=== PATIENT | female | born 1955 | race Caucasian/White ===

== ENCOUNTER → 2018-08-14 13:45 | Emergency (ER) | payer BC ==
[2018-08-14 16:02] LABS: ABS Basophils 0.1 10^3/ul (0-0.2); ABS Eosinophils 0.3 10^3/ul (0-0.6); ABS Lymphocytes 1.5 10^3/ul (1.0-4.8); ABS Monocytes 0.8 10^3/ul (0-0.8); ABS Neutrophils 8.8 10^3/ul (1.5-7.7); ABS Nucleated RBC 0 10^3/ul; Eosinophil % 2.4 %; Hematocrit 35 % (35-47); Lymphocyte % 12.9 %; Mean Corpuscular HGB Conc 34 g/dl (31-36); Mean Corpuscular Hemoglobin 29 pg (27-31); Mean Corpuscular Volume 86 fL (80-97); Nucleated Red Blood Cells % 0; Platelet Count 516 10^3/ul (150-450); Red Blood Count 4.09 10^6/ul (4.00-5.40); Red Cell Distribution Width 14 % (10.5-15); White Blood Count 11.5 10^3/ul (3.5-10.8)
[2018-08-14 16:10] LABS: INR 1.11 (0.77-1.02)
[2018-08-14 16:29] LABS: EGFR Non-African American 111.6 (>60)
--- NOTE | 2018-08-14 16:57 | ED ---
GI/ HPI - HPI Summary HPI Summary: This patient is a 63 year old F presenting [place] [facility] accompanied by her family with a chief complaint of unusual vaginal secretions that began last night. Pt states there was a clear jelly vaginal secretion that occurred midnight last night, she describes the smell of this secretion as similar to dirty feet. The pt put a piece of paper towel in her underwear to soak up any other possible secretions, and went back to bed. Then when she woke up this morning saw what she believes was her feces on the paper towel. This concerned her and she then checked her vagina and states there was feces coming out of it. The patient rates the pain 0/10 in severity. Patient reports feeling chilled yesterday and having increased thirst. Patient denies blood in her stool and back pain. She has not had a normal BM since yesterday. She has not had abd or vaginal surgery. She has had vaginal births. A week ago she was experiencing suprapubic pain and is concerned there is a hole leading from her colon into her vagina. - History of Current Complaint Chief Complaint: EDUrogenitalProblems Time Seen by Provider: 08/14/18 16:45 Stated Complaint: URINARY Hx Obtained From: Patient Onset/Duration: Started Hours Ago, Still Present Timing: Constant Severity: Moderate Current Severity: Moderate Pain Intensity: 0 Location of Pain: None Associated Signs and Symptoms: Positive: Other: - chills - Allergy/Home Medications Allergies/Adverse Reactions: Allergies Allergy/AdvReac Type Severity Reaction Status Date / Time No Known Allergies Allergy Verified 08/14/18 13:57 PMH/Surg Hx/FS Hx/Imm Hx Infectious Disease History: No Infectious Disease History: Denies: Traveled Outside the [place] in Last 30 Days - Family History Known Family History: Negative: Respiratory Disease, Seizure Disorder - Social History Lives: With Family Alcohol Use: Rare Substance Use Type: Reports: None Hx Tobacco Use: Yes Smoking Status (MU): Current Every Day Smoker Type: Cigarettes Review of Systems Positive: Chills Gastrointestinal: Negative - blood in stool , Other - increased thirst. Genitourinary: Other - unusual vaginal secretions Musculoskeletal: Negative - back pain All Other Systems Reviewed And Are Negative: Yes Physical Exam - Summary Physical Exam Summary: Appearance: Well appearing, no pain distress Skin: warm, dry, reflects adequate perfusion Head/face: normal Eyes: EOMI, JERRICA ENT: mucous membranes moist Neck: supple, non-tender Respiratory: CTA, breath sounds present Cardiovascular: RRR, pulses symmetrical Abdomen: non-tender, soft Bowel Sounds: present Musculoskeletal: normal, strength/ROM intact Neuro: normal, sensory motor intact, A&Ox3 Pelvic: she had no external lesion. Mild to moderate brown discharge in vaginal area coming from cervix, inferiorly displaced urethra, cervix is nml Triage Information Reviewed: Yes Vital Signs On Initial Exam: Initial Vitals Temp Pulse Resp BP Pulse Ox 98.2 F 72 18 121/95 98 08/14/18 13:51 08/14/18 13:51 08/14/18 13:51 08/14/18 13:51 08/14/18 13:51 Vital Signs Reviewed: Yes Diagnostics - Vital Signs Vital Signs Temp Pulse Resp BP Pulse Ox 08/14/18 13:51 98.2 F 72 18 121/95 98 - Laboratory Lab Results: Lab Results 08/14/18 08/14/18 08/14/18 Range/Units 15:43 15:43 15:44 WBC 11.5 H (3.5-10.8) 10^3/ul RBC 4.09 (4.00-5.40) 10^6/ul Hgb 12.0 (12.0-16.0) g/dl Hct 35 (35-47) % MCV 86 (80-97) fL MCH 29 (27-31) pg MCHC 34 (31-36) g/dl RDW 14 (10.5-15) % Plt Count 516 H (150-450) 10^3/ul MPV 6.0 L (7.4-10.4) fL Neut % (Auto) 76.6 % Lymph % (Auto) 12.9 % [place] % (Auto) 7.3 % Eos % (Auto) 2.4 % Baso % (Auto) 0.8 % Absolute Neuts (auto) 8.8 H (1.5-7.7) 10^3/ul Absolute Lymphs (auto) 1.5 (1.0-4.8) 10^3/ul Absolute Monos (auto) 0.8 (0-0.8) 10^3/ul Absolute Eos (auto) 0.3 (0-0.6) 10^3/ul Absolute Basos (auto) 0.1 (0-0.2) 10^3/ul Absolute Nucleated RBC 0 10^3/ul Nucleated RBC % 0 INR (Anticoag Therapy) 1.11 H (0.77-1.02) Sodium 131 L (135-145) mmol/L Potassium 3.5 (3.5-5.0) mmol/L Chloride 98 L (101-111) mmol/L Carbon Dioxide 27 (22-32) mmol/L Anion Gap 6 (2-11) mmol/L BUN 2 L (6-24) mg/dL Creatinine 0.55 (0.51-0.95) mg/dL Est GFR ( Amer) 135.1 (>60) Est GFR (Non-Af Amer) 111.6 (>60) BUN/Creatinine Ratio 3.6 L (8-20) Glucose 87 (70-100) mg/dL Lactic Acid (0.5-2.0) mmol/L Calcium 8.9 (8.6-10.3) mg/dL Total Bilirubin 0.50 (0.2-1.0) mg/dL AST 11 L (13-39) U/L ALT 6 L (7-52) U/L Alkaline Phosphatase 60 (34-104) U/L Total Protein 6.4 (6.4-8.9) g/dL Albumin 3.5 (3.2-5.2) g/dL Globulin 2.9 (2-4) g/dL Albumin/Globulin Ratio 1.2 (1-3) 12/11/18 Range/Units 15:44 WBC (3.5-10.8) 10^3/ul RBC (4.00-5.40) 10^6/ul Hgb (12.0-16.0) g/dl Hct (35-47) % MCV (80-97) fL MCH (27-31) pg MCHC (31-36) g/dl RDW (10.5-15) % Plt Count (150-450) 10^3/ul MPV (7.4-10.4) fL Neut % (Auto) % Lymph % (Auto) % [place] % (Auto) % Eos % (Auto) % Baso % (Auto) % Absolute Neuts (auto) (1.5-7.7) 10^3/ul Absolute Lymphs (auto) (1.0-4.8) 10^3/ul Absolute Monos (auto) (0-0.8) 10^3/ul Absolute Eos (auto) (0-0.6) 10^3/ul Absolute Basos (auto) (0-0.2) 10^3/ul Absolute Nucleated RBC 10^3/ul Nucleated RBC % INR (Anticoag Therapy) (0.77-1.02) Sodium (135-145) mmol/L Potassium (3.5-5.0) mmol/L Chloride (101-111) mmol/L Carbon Dioxide (22-32) mmol/L Anion Gap (2-11) mmol/L BUN (6-24) mg/dL Creatinine (0.51-0.95) mg/dL Est GFR ( Amer) (>60) Est GFR (Non-Af Amer) (>60) BUN/Creatinine Ratio (8-20) Glucose (70-100) mg/dL Lactic Acid 0.7 (0.5-2.0) mmol/L Calcium (8.6-10.3) mg/dL Total Bilirubin (0.2-1.0) mg/dL AST (13-39) U/L ALT (7-52) U/L Alkaline Phosphatase (34-104) U/L Total Protein (6.4-8.9) g/dL Albumin (3.2-5.2) g/dL Globulin (2-4) g/dL Albumin/Globulin Ratio (1-3) Result Diagrams: 08/14/18 15:44 08/14/18 15:43 Lab Statement: Any lab studies that have been ordered have been reviewed, and results considered in the medical decision making process. Re-Evaluation - Re-Evaluation First Eval Re-Evaluation Time: 18:21 Change: Unchanged Comment: The pt is refusing CT at this time. GIGU Course/Dx - Course Course Of Treatment: Patient presents with vaginal discharge that she is concerned his stool. It is light yellow brownish discharge and there is a small amount. On exam there is no evidence for fistula and no passing of more discharged with Valsalva. Patient has no pain and only slight white count. She has not had a colonoscopy or retained care recently. She does have a primary care physician. I discussed the case with surgery who suggests outpatient referral to [facility]. Patient offered CT scan which she declined. She is encouraged to have outpatient [facility] referral, see her primary care physician promptly and have outpatient colonoscopy. She will be placed on Flagyl after [facility] cultures were obtained. Possible BV. - Diagnoses Differential Diagnoses - Female: Other - Vaginosis, UTI, fistula involving bladder or large bowel Provider Diagnoses: Vaginal discharge Discharge - Sign-Out/Discharge Documenting (check all that apply): Patient Departure - Discharge Plan Condition: Improved Disposition: HOME Prescriptions: metroNIDAZOLE [Flagyl 500 MG TAB] 500 mg PO TID #21 tab Patient Education Materials: Vaginal Discharge (ED) Referrals: Tony Harrison [Primary Care Provider] - Breezy Naqvi MD [Medical Doctor] - Additional Instructions: Call your doctor first thing in the morning for prompt recheck. He will likely need outpatient colonoscopy and will definitely need gynecology referral. Call them in the morning to be seen. Return with fever, persistent discharge, abdominal pain, worse, new symptoms or other concerns as discussed. - Billing Disposition and Condition Condition: IMPROVED Disposition: Home - Attestation Statements Document Initiated by Perla: Yes Documenting Scribe: Robert Abdi Provider For Whom Perla is Documenting (Include Credential): Emanuel Gamez MD Scribe Attestation: Robert Arenas scribed for Emanuel Gamez MD on 08/14/18 at 1959. Scribe Documentation Reviewed: Yes Provider Attestation: The documentation as recorded by the Robert benitez accurately reflects the service I personally performed and the decisions made by me, Emanuel Gamez MD Status of Scribe Document: Viewed
[2018-08-14 17:32] LABS: Urine Appearance Clear; Urine Blood 1+ (Negative); Urine Color Yellow; Urine Ketones Negative (Negative); Urine Protein Negative (Negative); Urine Red Blood Cell Trace(0-2/hpf) (Absent); Urine Specific Gravity 1.003 (1.010-1.030); Urine Urobilinogen Negative (Negative); Urine White Blood Cell Absent (Absent)
[2018-08-14 19:08] VITALS: BP 146/74
== END | disposition home or self-care (01) ==
LOC: ED 13:45
DX: N89.8 Other specified noninflammatory disorders of vagina (principal); F17.200 Nicotine dependence, unspecified, uncomplicated
CPT/HCPCS: 36415; 80053; 81003; 81015; 83605; 85025; 85610; 87070; 87077; 87480; 87510; 87660; 99282

== ENCOUNTER 2019-01-31 05:27 | Inpatient (IN) | payer BC ==
[~2019-01-31 05:27] MED LIST: Buffered Lidocaine 1% SYRIN* 1 ML/SYRINGE INTRADERM ONE; Ondansetron TAB* 4 MG ONE
--- OUTSIDE RECORDS SUMMARY | 2019-01-31 05:30 | XMS REPORT | Continuity of Care Document ---
:1955 External Reference #:[id number] Author Name Maxine Diane MD Address [address] [place] [address] Care Team Providers Name Role Phone Carmella Madrid MD Care Team Information Nurse Supervisor Unavailable Payers Date Identification Numbers Payment Provider Subscriber Policy Number: [id number] [employer] DORETHA Garcia PayID: [id number] [address] [address] [place] [address] Advance Directives Description No Information Available Problems Description No Information Family History Description No Information Available Social History Type Date Description Comments Sex Unknown Tobacco Use Start: Unknown Patient is a current smoker, smokes every day Smoking Status Reviewed: 01/01/19 Patient is a current smoker, smokes every day Allergies, Adverse Reactions, Alerts Description No Known Drug Allergies Medications Active Medications SIG Qnty Indications Ordering Provider Date Ra Aspirin Ec Adult Low Strength Unknown 81mg Tablets Lisinopril 10mg Unknown Tablets Rosuvastatin Calcium Unknown 20mg Tablets Multivitamins Unknown Immunizations Description No Information Available Vital Signs Date Vital Result Comment 01/01/2019 9:51am Height 62 inches 5'2" Weight 92.00 lb BP Systolic 141 mmHg BP Diastolic 97 mmHg Heart Rate 99 /min BMI (Body Mass Index) 16.8 kg/m2 Results Test Date Facility Test Result H/L Range Note CBC W/Auto 01/01/2019 [facility] White Blood 13.2 3/UL High 4.8-10.8 [facility] [address] Count Ser l(!) [place] [address] Auto CNT [phone] RBC Red Blood Count 4.72 X106/UL 4.20-6.20 Hemoglobin Blood 13.3 g/dL 12.0-18.0 Hematocrit 40.5 % 35-52 MCV (Corpuscular Volume) 85.7 FL 79-97 MCH (Corpuscular Hemoglobin) 28.1 pg 27-31 MCHC (Corpuscular Hemog Conc) 32.8 g/dL 32.0-36.0 RDW 14.5 % 10.5-15.0 Platelet Count Blood Auto CNT 588 X103/UL High 150-450 MPV 5.1 FL Low 7.4-10.4 Lymph% 17.0 % Low 20.0-45.0 [place]% 4.2 % 1.0-9.0 Neutrophil % 78.8 % 38.0-83.0 Absolute Lymphocytes 2.3 X103/UL 1.0-4.8 Absolute Monocytes 0.6 X103/UL 0.0-0.8 Absolute Neutrophils 10.6 X103/UL High 1.5-7.7 Laboratory test finding 01/01/2019 [facility] Carcinoembryonic Antigen Cea < pending> Procedures Description No Information Available Encounters Description No Information Available Plan of Treatment Future Appointment(s):01/03/2019 12:30 pm - Maxine Diane MD at [facility]01/01/2019 - Maxine Diane MDN82.3 Fistula of vagina to large [id number] Change in bowel [id number] Abnormal weight loss
--- OUTSIDE RECORDS SUMMARY | 2019-01-31 05:30 | XMS REPORT | Continuity of Care Document ---
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 Payers Date Identification Numbers Payment Provider Subscriber Policy Number: [id number] [employer] Zia E Radha PayID: [id number] [address] [address] [place] [address] Family History Date Family Member(s) Observation Comments Father due to Surgical complication () Mother Hypertension Social History Type Date Description Comments Sex Unknown Marital Status Occupation Retired semi [employer] Use Occasionally consumes alcohol Tobacco Use Start: Unknown Heavy tobacco smoker (more than 10 cigarettes/day) Smoking Status Reviewed: 01/23/19 Heavy tobacco smoker (more than 10 cigarettes/day) Exercise Type/Frequency Exercises regularly Allergies, Adverse Reactions, Alerts Description No Known Drug Allergies Medications Active Medications SIG Qnty Indications Ordering Provider Date Aspirin 1 by mouth every Unknown 81mg Tablets DR day Lisinopril 1 by mouth every Unknown 10mg Tablets day Multivitamin Adult 1 by mouth every Unknown Tablets day Rosuvastatin Calcium 1 by mouth every Unknown 20mg day Tablets Vital Signs Date Vital Result Comment 01/23/2019 9:50am Height 62 inches 5'2" Weight 90.00 lb Heart Rate 72 /min BP Systolic Sitting 126 mmHg BP Diastolic Sitting 78 mmHg Respiratory Rate 16 /min Body Temperature 98.6 F BMI (Body Mass Index) 16.5 kg/m2
[2019-01-31] MEDS ORDERED: fentaNYL* 50 MCG/ML 2 ML VIAL (100 MCG VIAL) IV PRN (05:52)
[2019-01-31] MEDS ORDERED: Morphine 4 MG/ML VIAL (1 ml) 4 MG/ML VIAL IV PRN (05:52)
[2019-01-31] MEDS ORDERED: Naloxone* 0.4 MG/ML 1 ML VIAL IV PRN (05:52)
[2019-01-31] MEDS ORDERED: DiMENhydriNATE IV* 50 MG/ML VIAL IV PUSH PRN (05:52)
[2019-01-31] MEDS ORDERED: PROCHLORPERAZINE INJ 5 MG/ML 2 ML VIAL IV PRN (05:52)
[2019-01-31] MEDS ORDERED: Lactated Ringers 1000 ML Bag* 1,000 ML IV SCH (06:00)
[2019-01-31] MEDS ORDERED: Dexamethasone IV* 4 MG/ML 1 ML (4 MG) IV SLOW PU ONE (06:00)
[2019-01-31] MEDS ORDERED: Famotidine IV* 10 MG/ML 2 ML (20 mg) IV ONE (06:00)
[2019-01-31] MEDS ORDERED: Dexamethasone IV* 4 MG/ML 1 ML (4 MG) ONE (06:24)
[2019-01-31] MEDS ORDERED: ceFOXitin 2 GM IVPREMIX* 2 GM/50 ML BAG ONE (06:24)
[2019-01-31] MEDS ORDERED: Buffered Lidocaine 1% SYRIN* 1 ML/SYRINGE INTRADERM ONE (06:24)
[2019-01-31] MEDS ORDERED: Ondansetron INJ* 2 MG/ML VIAL ONE (06:24)
[2019-01-31] MEDS ORDERED: Famotidine IV* 10 MG/ML 2 ML (20 mg) ONE (06:24)
[2019-01-31] MEDS ORDERED: Bupivacaine 0.5%* 50 ML VIAL ONE (07:18)
[2019-01-31] MEDS ORDERED: fentaNYL* 50 MCG/ML 5 ML VIAL (250 MCG VIAL) ONE (07:26)
[2019-01-31] MEDS ORDERED: Midazolam* 1 MG/ML 5 ML VIAL (5 MG) ONE (07:26)
[2019-01-31] MEDS ORDERED: KETAMINE HCL* 50 MG/ML 10 ML VIAL ONE (07:26)
[2019-01-31] MEDS ORDERED: Atracurium* 10 MG/ML 10 ML VIAL ONE (07:27)
[2019-01-31] MEDS ORDERED: Neostigmine Methylsulfate* 1 MG/ML 10 ML VIAL (1 mg/ml) ONE (08:38)
[2019-01-31] MEDS ORDERED: EPHEDrine (Pressors)* 50 MG/ML VIAL ONE (08:38)
[2019-01-31] MEDS ORDERED: Ketorolac INJ* 30 MG/ML 1 ML VIAL ONE (08:38)
[2019-01-31] MEDS ORDERED: Phenylephrine 10 MG/ML VIAL* 1 ML VIAL ONE (08:38)
[2019-01-31] MEDS ORDERED: Acetaminophen IV 1GM/100ML * 100 ML ONE (08:38)
[2019-01-31] MEDS ORDERED: PROCHLORPERAZINE INJ 5 MG/ML 2 ML VIAL ONE (08:38)
[2019-01-31] MEDS ORDERED: Glycopyrrolate IV* 0.2 MG/ML 1 ML VIAL ONE (08:38)
[2019-01-31] MEDS ORDERED: Lidocaine 2% PF * 5 ML VIAL ONE (08:38)
[2019-01-31] MEDS ORDERED: Morphine 10 MG/ML VIAL (1 ml) ONE (09:21)
--- NOTE | 2019-01-31 09:43 | OP ---
Operative Report - Blank - Operative Report Date of Operation: 01/31/19 Note: Brief Operative Note Preop Dx: colon cancer; colovaginal fistula Postop Dx: same Procedure: laparoscopic, hand-assisted sigmoid colectomy Anesthesia: GET Surgeon: Mindy Belt Press Operator: WAQAS Irving Fluids: 2100 ml RL EBL: < 50 ml Specimen: sigmoid colon Drains: none Findings: dictated
[2019-01-31] MEDS ORDERED: Lactated Ringers 1000 ML Bag* 1,000 ML IV ONE (09:48)
[2019-01-31] MEDS ORDERED: HYDROmorphone INJ1* 1 MG/ML SYRINGE IV SLOW PU PRN ×2 (09:59)
--- NOTE | 2019-01-31 12:28 | OP ---
CC: Venkat Guillen MD; Dr. Mendosa* OPERATIVE REPORT: DATE OF OPERATION: 01/31/19 - Inpatient, room SSU 334-01 DATE OF : 55 ATTENDING SURGEON: Venkat Guillen MD APPAREL MANAGER: WAQAS Jefferson ANESTHESIOLOGIST: Jacky Vaughan MD ANESTHESIA: General. PRE-OP DIAGNOSIS: Sigmoid colon cancer with colovaginal fistula. POST-OP DIAGNOSIS: Sigmoid colon cancer with colovaginal fistula. OPERATIVE PROCEDURE: Laparoscopic hand-assisted sigmoid colectomy with take down of colovesical fistula. INDICATIONS FOR PROCEDURE: A 63-year-old female with stage IV colon cancer. Risks included but not limited to bleeding; infection; anastomotic leak; injury to intraabdominal contents including the bowel, ureter, and the bladder; persistent fistulous drainage; ND; pneumonia; PE; arrhythmia and even were explained to the patient, who seemed to understand and agreed to the procedure and all questions were answered. DESCRIPTION OF PROCEDURE: The patient was taken to the operating room and placed supine. Preoperative antibiotics were given. After the successful induction of general endotracheal anesthesia, a Pope catheter was placed. The legs were placed in a split table in a split position. The abdomen was prepped and draped in a sterile fashion. Time-out was performed indicating correct procedure, correct patient. Midline incision was made 6.5 cm in length and carried down to the subcutaneous tissue. The fascia was opened and the peritoneal cavity was entered. A hand port was then placed through this incision. My left hand was placed into the incision. The bowel was protected as a suprapubic 12 mm and a right lower quadrant 12 mm trocar were placed. Pneumoperitoneum was achieved at 15 mmHg. The camera was placed in and the abdomen was scanned. The patient was placed in a Trendelenburg position, tilted slightly towards her right. The sigmoid mass was easily identified and was adherent along the left hemipelvis towards the top of the vagina. Proximal point well away from the tumor was chosen and they were down to the sigmoid. This was divided using a stapler with a gold load, 60 mm. Mesentery was then taken down towards the rectum partially. The rectosigmoid junction was divided using a similar staple size. The mesentery was then completely taken using the LigaSure and stapling the vasculature with a sliver load on the stapler. EBL minimal. Hemostasis was intact. The tumor of colon easily from the small point down in the pelvis with some gentle retraction and finger fracture and there was minimal to no bleeding. The specimen was removed. Pelvis was irrigated, aspirated dry, and inspected. No injuries were noted. Ureter was left untouched. The proximal bowel was brought out through the incision site and a 25-mm EEA anvil was placed into this segment of colon and a new staple line was made and the anvil was brought out through the staple line. Then, from below in the lower anterior fashion, a 25 mm EEA stapled anastomosis was performed on top of the rectum just distal to the initial staple line. An air leak test was performed by filling the pelvis with saline, clamping the proximal bowel with my fingers, insufflating air with a rigid sigmoidoscope and there were no air bubbles or air leak. Air was released from the rectum. The pelvis was aspirated and free of saline. There was a short omentum, it was taken off the proximal transverse colon creating a long tongue of omentum coming from the distal transverse colon and was placed down in the pelvis over the anastomosis and covering the fistula site. The abdomen was once again scanned, no obvious injuries were noted. She was placed flat in the supine position. The fascia was closed with a running #1 PDS suture. Marcaine was applied to the fascia. Skin was closed with Monocryl and glue. Trocars had been removed. She tolerated the procedure well. She was extubated and taken to the recovery in stable condition. [id number]/[facility] #: [id number] MTDCelestino
[2019-01-31] MEDS: Heparin VIAL(*) 5000 UNITS/ML VIAL (FIVE THOUSAND) SUBCUT SCH ×2 (14:08→22:23)
[2019-01-31] MEDS: Acetaminophen TAB* 325 MG PO PRN (22:23)
[2019-01-31] MEDS: Lactated Ringers 1000 ML Bag* 1,000 ML IV SCH (22:34)
[2019-02-01] MEDS: HYDROcodone/ACETAMIN 5-325 MG* 1 TAB PO PRN (03:54)
[2019-02-01] MEDS: Heparin VIAL(*) 5000 UNITS/ML VIAL (FIVE THOUSAND) SUBCUT SCH ×3 (06:13→22:19)
[2019-02-01] MEDS: Acetaminophen TAB* 325 MG PO PRN ×4 (06:20→20:00)
--- NOTE | 2019-02-01 09:11 | PN ---
Progress Note - Progress Note Date of Service: 02/01/19 SOAP: Subjective: Doing very well Pain is adequately controlled Voiding well, ambulating to bathroom Objective: Temp Pulse Resp BP Pulse Ox 98.8 F 75 16 142/58 96 02/01/19 07:42 02/01/19 07:42 02/01/19 07:42 02/01/19 07:42 02/01/19 07:42 Intake & Output 01/30/19 01/31/19 02/01/19 02/02/19 06:59 06:59 06:59 06:59 Intake Total 4125 Output Total 1989 300 Balance 2135 -300 Weight 83 lb Intake: IV Fluids 3075 LR 3075 Oral 1050 Output: Urine 1989 300 Other: # Voids 2 PEX: Comfortable-awake and alert Lungs are clear Abd is soft and slightly distended. Bowel sounds present but very hypoactive. Incisions CDI Ext without edema Assessment: POD# 1 s/p lap assisted sigmoid colectomy--doing well Plan: Clear liquids Increase activity Pulmonary toilet Subq heparin Analgesia Care discussed with patient and
[2019-02-01 21:33] LABS: BUN/Creatinine Ratio 9.6 (8-20); Calcium 8.8 mg/dL (8.6-10.3); EGFR African American 144.1 (>60); EGFR Non-African American 119.1 (>60); Magnesium 1.8 mg/dL (1.9-2.7); Potassium 3.4 mmol/L (3.5-5.0)
[2019-02-01] MEDS: Lactated Ringers 1000 ML Bag* 1,000 ML IV SCH (22:22)
[2019-02-02] MEDS: HYDROcodone/ACETAMIN 5-325 MG* 1 TAB PO PRN ×4 (00:01→13:33)
[2019-02-02] MEDS: Ondansetron INJ* 2 MG/ML VIAL IV PRN ×2 (00:02→15:34)
[2019-02-02] MEDS: Heparin VIAL(*) 5000 UNITS/ML VIAL (FIVE THOUSAND) SUBCUT SCH ×3 (05:38→22:22)
[2019-02-02] MEDS ORDERED: Magnesium Sulfate 1 GM IV* 1 GM/100 ML BAG IV ONE (07:21)
--- NOTE | 2019-02-02 08:47 | PN ---
Progress Note - Progress Note Date of Service: 02/02/19 SOAP: Subjective: Pt seen and examined. Chart reviewed. abdo pain relieved with narcotics. no nausea, no flatus. bloated. ambulatory. overall feels well. some bloody vaginal discharge on night, but none since overnight nurse noted irregular heart beat on exam and ekg done, along with labs Objective: [ Temp Pulse Resp BP Pulse Ox 97.8 F 87 17 155/68 96 02/02/19 07:47 02/02/19 07:47 02/02/19 07:47 02/02/19 07:47 02/02/19 07:47 Intake & Output 02/01/19 02/02/19 02/02/19 22:59 06:59 14:59 Intake Total 300 150 Output Total 2230 1750 Balance -1930 -1600 a and o x3, nad lungs clear s1s2, no murmurs abdo: soft/ bloated/ NT dressing removed, no redness ext wnl labs noted Assessment: POD 2 sigmoid colectomy takedown of colovag fistula, ileus Plan: cont clears replete lytes OOB, incentive spirometer dvt proph
[2019-02-02] MEDS: D5W 1/2 NS KCl 20 Meq 1000 ML* 1,000 ML IV SCH (09:21)
[2019-02-02] MEDS: KCL 20 MEQ/100 ML IVPREMIX* 20 MEQ/100 ML BAG IV SCH ×2 (11:02→14:40)
[2019-02-02] MEDS: Lisinopril TAB* 10 MG PO SCH (17:59)
[2019-02-03] MEDS: Ondansetron INJ* 2 MG/ML VIAL IV PRN ×3 (04:16→20:42)
[2019-02-03] MEDS: Heparin VIAL(*) 5000 UNITS/ML VIAL (FIVE THOUSAND) SUBCUT SCH ×3 (05:59→21:54)
[2019-02-03 06:23] LABS: BUN/Creatinine Ratio 7.5 (8-20); Calcium 9.1 mg/dL (8.6-10.3); EGFR Non-African American 116.5 (>60); Magnesium 1.7 mg/dL (1.9-2.7); Phosphorus 2.8 mg/dL (2.5-5.0); Potassium 3.5 mmol/L (3.5-5.0)
[2019-02-03] MEDS: D5W 1/2 NS KCl 20 Meq 1000 ML* 1,000 ML IV SCH ×2 (06:49→18:30)
[2019-02-03] MEDS: HYDROcodone/ACETAMIN 5-325 MG* 1 TAB PO PRN ×2 (09:01→14:12)
[2019-02-03] MEDS ORDERED: Magnesium Sulfate 2 GM IV* 2 GM/50 ML BAG IVPB ONE (09:49)
[2019-02-03 10:32] LABS: ABS Basophils 0.1 10^3/ul (0-0.2); ABS Lymphocytes 0.5 10^3/ul (1.0-4.8); ABS Monocytes 1.3 10^3/ul (0-0.8); ABS Neutrophils 14.2 10^3/ul (1.5-7.7); Hematocrit 35 % (35-47); Hemoglobin 11.8 g/dL (12.0-16.0); Lymphocyte % 3.2 %; Mean Corpuscular HGB Conc 34 g/dL (31-36); Mean Corpuscular Hemoglobin 29 pg (27-31); Mean Corpuscular Volume 85 fL (80-97); Mean Platelet Volume 6.4 fL (7.4-10.4); Platelet Count 350 10^3/uL (150-450); Red Blood Count 4.15 10^6 /uL (3.70-4.87); Red Cell Distribution Width 15 % (10.5-15); White Blood Count 16.1 10^3/uL (3.5-10.8)
--- NOTE | 2019-02-03 12:05 | PN ---
Progress Note - Progress Note Date of Service: 02/03/19 Note: Surgery Progress Note S: Patient had emesis 4 times yesterday. She feels somewhat nauseous. Pain is well controlled but difficult to keep down PO meds. She has ambulated numerous times yesterday. She feels that her UOP has declined and has become darker. She otherwise appears comfortable. O: Vital Signs - 24 hr 02/02/19 02/02/19 02/02/19 13:33 15:21 16:00 Temperature 98 F Pulse Rate 96 Respiratory 18 16 Rate Blood Pressure 135/75 (mmHg) O2 Sat by Pulse 97 97 Oximetry 02/02/19 02/02/19 02/02/19 16:09 19:30 19:40 Temperature 98.6 F Pulse Rate 93 Respiratory 18 18 18 Rate Blood Pressure 142/71 (mmHg) O2 Sat by Pulse 96 Oximetry 02/02/19 02/03/19 02/03/19 23:58 00:00 04:03 Temperature 98.1 F 98.2 F Pulse Rate 102 120 Respiratory 22 20 Rate Blood Pressure 154/85 155/77 (mmHg) O2 Sat by Pulse 98 98 95 Oximetry 02/03/19 02/03/19 02/03/19 04:20 07:36 09:01 Temperature 99.6 F Pulse Rate 100 106 Respiratory 16 18 Rate Blood Pressure 139/70 (mmHg) O2 Sat by Pulse 92 Oximetry Laboratory Results - last 24 hr 02/03/19 02/03/19 05:39 10:22 WBC 16.1 H RBC 4.15 Hgb 11.8 L Hct 35 MCV 85 MCH 29 MCHC 34 RDW 15 Plt Count 350 MPV 6.4 L Neut % (Auto) 88.6 Lymph % (Auto) 3.2 [place] % (Auto) 7.9 Eos % (Auto) 0.0 Baso % (Auto) 0.3 Absolute Neuts (auto) 14.2 H Absolute Lymphs (auto) 0.5 L Absolute Monos (auto) 1.3 H Absolute Eos (auto) 0.0 Absolute Basos (auto) 0.1 Absolute Nucleated RBC 0.0 Nucleated RBC % 0.0 Sodium 130 L Potassium 3.5 Chloride 93 L Carbon Dioxide 28 Anion Gap 9 BUN 4 L Creatinine 0.53 Est GFR ( Amer) 141.0 Est GFR (Non-Af Amer) 116.5 BUN/Creatinine Ratio 7.5 L Glucose 128 H Calcium 9.1 Phosphorus 2.8 Magnesium 1.7 L Intake & Output 02/02/19 02/03/19 02/03/19 22:59 06:59 14:59 Intake Total 500 1185 480 Output Total 0 525 100 Balance 500 660 380 Intake: IV Fluids 885 D5W 1/2 NS 20 meq KCL 885 Oral 500 300 480 Output: Urine 0 425 100 Emesis 100 Other: # Bowel Movements 0 Physical exam: CV: increased rate, regular rhythm Resp: CTAB Abd- distended, +tympany, minimally tender at incisions, c/d/i A/P: 63 F with metastatic colon cancer, POD 3 from lap assisted sigmoid colectomy and fistula takedown with Dr. Guillen - Patient with ileus, DC CLD and told patient to take sips of clears only - Tachycardia to low 100s- Hct 35 today, will trend tomorrow. Unlikely from infectious etiology, given patient is afebrile and WBC 16 but will trend. Likely from hypovolemia from large auto diuresis two days ago (POD 2, 5700 cc UOP), continued emesis and lack of PO intake. Will increase IVF. - Replete magnesium - Patient encouraged to continue ambulation - Pain- IV dilaudid PRN, PO pain meds likely will not be tolerated - PPX- HSQ
[2019-02-03] MEDS: Lisinopril TAB* 10 MG PO SCH (18:02)
[2019-02-03] MEDS: Ketorolac INJ* 15 MG/ML 1 ML VIAL IV PUSH PRN (18:30)
[2019-02-04] MEDS: D5W 1/2 NS KCl 20 Meq 1000 ML* 1,000 ML IV SCH ×2 (03:44→11:00)
[2019-02-04 05:02] LABS: ABS Lymphocytes 0.2 10^3/ul (1.0-4.8); ABS Monocytes 0.6 10^3/ul (0-0.8); ABS Neutrophils 9.8 10^3/ul (1.5-7.7); Eosinophil % 0.3 %; Hematocrit 37 % (35-47); Hemoglobin 12.6 g/dL (12.0-16.0); Lymphocyte % 2.2 %; Mean Corpuscular HGB Conc 34 g/dL (31-36); Mean Corpuscular Hemoglobin 29 pg (27-31); Mean Corpuscular Volume 85 fL (80-97); Mean Platelet Volume 6.7 fL (7.4-10.4); Nucleated Red Blood Cells % 0.1; Platelet Count 356 10^3/uL (150-450); Red Blood Count 4.39 10^6 /uL (3.70-4.87); Red Cell Distribution Width 15 % (10.5-15); White Blood Count 10.7 10^3/uL (3.5-10.8)
[2019-02-04 05:26] LABS: BUN/Creatinine Ratio 16.3 (8-20); Calcium 8.8 mg/dL (8.6-10.3); EGFR African American 154.3 (>60); EGFR Non-African American 127.6 (>60); Potassium 3.4 mmol/L (3.5-5.0)
[2019-02-04] MEDS: Heparin VIAL(*) 5000 UNITS/ML VIAL (FIVE THOUSAND) SUBCUT SCH ×3 (05:55→22:29)
[2019-02-04] MEDS ORDERED: NS 0.9% 1000 ML** 1,000 ML IV ONE (09:05)
--- NOTE | 2019-02-04 09:15 | PN ---
Progress Note - Progress Note Date of Service: 02/04/19 SOAP: Subjective:feels bloated and rates abd pain at 3;no dysuria but notes urine is dark orange;no dyspnea [] Objective: Laboratory Results - last 24 hr 02/03/19 02/04/19 02/04/19 10:22 04:47 04:47 WBC 16.1 H 10.7 RBC 4.15 4.39 Hgb 11.8 L 12.6 Hct 35 37 MCV 85 85 MCH 29 29 MCHC 34 34 RDW 15 15 Plt Count 350 356 MPV 6.4 L 6.7 L Neut % (Auto) 88.6 91.4 Lymph % (Auto) 3.2 2.2 [place] % (Auto) 7.9 5.9 Eos % (Auto) 0.0 0.3 Baso % (Auto) 0.3 0.2 Absolute Neuts (auto) 14.2 H 9.8 H Absolute Lymphs (auto) 0.5 L 0.2 L Absolute Monos (auto) 1.3 H 0.6 Absolute Eos (auto) 0.0 0.0 Absolute Basos (auto) 0.1 0.0 Absolute Nucleated RBC 0.0 0.0 Nucleated RBC % 0.0 0.1 Sodium 128 L Potassium 3.4 L Chloride 94 L Carbon Dioxide 27 Anion Gap 7 BUN 8 Creatinine 0.49 L Est GFR ( Amer) 154.3 Est GFR (Non-Af Amer) 127.6 BUN/Creatinine Ratio 16.3 Glucose 137 H Calcium 8.8 Vital Signs Temp 101 F 02/04/19 07:25 Pulse 116 02/04/19 07:25 Resp 15 02/04/19 07:25 BP 140/72 02/04/19 07:25 Pulse Ox 92 02/04/19 07:25 Intake & Output 02/03/19 02/04/19 02/04/19 18:59 06:59 18:59 Intake Total 655 915 Output Total 870 2500 Balance -215 -1585 Intake: IV Fluids 915 D5W 1/2 NS 20 meq KCL 915 IVPB 55 Mg+ 55 Oral 600 0 Output: NG Tube Drainage Amount 1950 Urine 770 100 Emesis 100 450 lungs:clear anterior;heart:RRR,tachy;abd:quiet,distended and firm,incisions C/D/ I with glue,no erythema or drainage;ext:nontender calves [] Assessment:POD#3 s/p lap sigmoid colectomy;febrile,tachycardic,low urine output; hyponatremia [] Plan:1 liter bolus NS 0.9% now;update Dr Guillen;plan discussed with patient and her []
[2019-02-04] MEDS ORDERED: Acetaminophen IV 1GM/100ML * 1,000 MG/100 ML VIAL IVPB ONE (09:27)
[2019-02-04] MEDS: Ketorolac INJ* 15 MG/ML 1 ML VIAL IV PUSH PRN ×3 (09:29→22:32)
[2019-02-04] MEDS ORDERED: D5NS 0.9% 1000 ML BAG* 1,000 ML IV SCH (12:00)
--- NOTE | 2019-02-04 12:05 | PN ---
Progress Note - Progress Note Date of Service: 02/04/19 SOAP: Subjective: []pod #4 no flatus, no vaginal drainage, abdominal discomfort 3, improved with NG, no chills Objective: [] Intake & Output 02/02/19 02/03/19 02/04/19 02/05/19 06:59 06:59 06:59 06:59 Intake Total 1456 3814 1570 1672 Output Total 5680 1405 3370 800 Balance -4224 2409 -1800 872 Intake: IV Fluids 776 2054 915 1572 D5W 1/2 NS 20 meq KCL 885 915 572 K+ 100 LR 776 859 Mg+ 110 NS (0.9%) 100 1000 IVPB 55 100 Acetaminophen 100 Mg+ 55 Oral 680 1760 600 0 Output: NG Tube Drainage Amount 1950 600 Urine 5680 1305 870 200 Emesis 100 550 Other: # Bowel Movements 0 0 Temp Pulse Resp BP Pulse Ox 101 F 116 15 140/72 92 02/04/19 07:25 02/04/19 07:25 02/04/19 07:25 02/04/19 07:25 02/04/19 08:00 Laboratory Last Values WBC 10.7 10^3/uL (3.5-10.8) 02/04/19 04:47 RBC 4.39 10^6 /uL (3.70-4.87) 02/04/19 04:47 Hgb 12.6 g/dL (12.0-16.0) 02/04/19 04:47 Hct 37 % (35-47) 02/04/19 04:47 MCV 85 fL (80-97) 02/04/19 04:47 MCH 29 pg (27-31) 02/04/19 04:47 MCHC 34 g/dL (31-36) 02/04/19 04:47 RDW 15 % (10.5-15) 02/04/19 04:47 Plt Count 356 10^3/uL (150-450) 02/04/19 04:47 MPV 6.7 fL (7.4-10.4) L 02/04/19 04:47 Neut % (Auto) 91.4 % 02/04/19 04:47 Lymph % (Auto) 2.2 % 02/04/19 04:47 [place] % (Auto) 5.9 % 02/04/19 04:47 Eos % (Auto) 0.3 % 02/04/19 04:47 Baso % (Auto) 0.2 % 02/04/19 04:47 Absolute Neuts (auto) 9.8 10^3/ul (1.5-7.7) H 02/04/19 04:47 Absolute Lymphs (auto) 0.2 10^3/ul (1.0-4.8) L 02/04/19 04:47 Absolute Monos (auto) 0.6 10^3/ul (0-0.8) 02/04/19 04:47 Absolute Eos (auto) 0.0 10^3/ul (0-0.6) 02/04/19 04:47 Absolute Basos (auto) 0.0 10^3/ul (0-0.2) 02/04/19 04:47 Absolute Nucleated RBC 0.0 10^3/ul 02/04/19 04:47 Nucleated RBC % 0.1 02/04/19 04:47 Sodium 128 mmol/L (135-145) L 02/04/19 04:47 Potassium 3.4 mmol/L (3.5-5.0) L 02/04/19 04:47 Chloride 94 mmol/L (101-111) L 02/04/19 04:47 Carbon Dioxide 27 mmol/L (22-32) 02/04/19 04:47 Anion Gap 7 mmol/L (2-11) 02/04/19 04:47 BUN 8 mg/dL (6-24) 02/04/19 04:47 Creatinine 0.49 mg/dL (0.51-0.95) L 02/04/19 04:47 Est GFR ( Amer) 154.3 (>60) 02/04/19 04:47 Est GFR (Non-Af Amer) 127.6 (>60) 02/04/19 04:47 BUN/Creatinine Ratio 16.3 (8-20) 02/04/19 04:47 Glucose 137 mg/dL (70-100) H 02/04/19 04:47 Calcium 8.8 mg/dL (8.6-10.3) 02/04/19 04:47 Phosphorus 2.8 mg/dL (2.5-5.0) 02/03/19 05:39 Magnesium 1.7 mg/dL (1.9-2.7) L 02/03/19 05:39 abdomen is soft moderate distension, incision CDI Assessment: []pod# 4, ileus, nausea improved with ng, fever, tachycardia this am, recheck vitals await cxr, ua results, anastomotic leak in differential but abdomen is benign hyponatremia- change to normal saline fluid bolus for low uo Plan: []ivf change as above, await cxr/ua
[2019-02-04] MEDS ORDERED: Acetaminophen SUPP* 650 MG SUPP PR PRN (12:21)
[2019-02-04] MEDS: D5W NS 0.9% 20Meq KCL 1000 ML* 1,000 ML IV SCH (13:13)
[2019-02-04 13:38] LABS: Urine Appearance Cloudy; Urine Bacteria Absent (Absent); Urine Bilirubin Negative (Negative); Urine Blood Negative (Negative); Urine Color Amber; Urine Glucose Negative (Negative); Urine Ketones Negative (Negative); Urine Nitrite Negative (Negative); Urine Protein 1+(30 mg/dL) (Negative); Urine Red Blood Cell 1+(3-5/hpf) (Absent); Urine Specific Gravity 1.024 (1.010-1.030); Urine Squamous Epithelial Cell Present (Absent); Urine Urobilinogen Negative (Negative); Urine White Blood Cell Trace(0-5/hpf) (Absent)
[2019-02-04] MEDS: Lisinopril TAB* 10 MG PO SCH (18:01)
[2019-02-05] MEDS: D5W NS 0.9% 20Meq KCL 1000 ML* 1,000 ML IV SCH ×3 (01:17→21:05)
[2019-02-05] MEDS: Heparin VIAL(*) 5000 UNITS/ML VIAL (FIVE THOUSAND) SUBCUT SCH ×3 (05:25→21:17)
[2019-02-05] MEDS: Ketorolac INJ* 15 MG/ML 1 ML VIAL IV PUSH PRN ×3 (05:30→18:45)
[2019-02-05 05:54] LABS: ABS Lymphocytes 0.4 10^3/ul (1.0-4.8); ABS Monocytes 1.3 10^3/ul (0-0.8); ABS Neutrophils 9.2 10^3/ul (1.5-7.7); Eosinophil % 0.3 %; Hematocrit 33 % (35-47); Hemoglobin 11.2 g/dL (12.0-16.0); Lymphocyte % 3.8 %; Mean Corpuscular HGB Conc 34 g/dL (31-36); Mean Corpuscular Hemoglobin 29 pg (27-31); Mean Corpuscular Volume 85 fL (80-97); Mean Platelet Volume 6.9 fL (7.4-10.4); Nucleated Red Blood Cells % 0.2; Platelet Count 326 10^3/uL (150-450); Red Blood Count 3.91 10^6 /uL (3.70-4.87); Red Cell Distribution Width 15 % (10.5-15)
[2019-02-05 06:14] LABS: BUN/Creatinine Ratio 25.5 (8-20); Calcium 8.5 mg/dL (8.6-10.3); EGFR African American 147.4 (>60); EGFR Non-African American 121.8 (>60)
[2019-02-05 06:17] LABS: Potassium 2.5 mmol/L (3.5-5.0)
[2019-02-05] MEDS ORDERED: KCL 10 MEQ/50 ML IVPREMIX* 10 MEQ/50 ML BAG IV SCH (07:00)
[2019-02-05] MEDS: KCL 10 MEQ/50 ML IVPREMIX* 10 MEQ/50 ML BAG IV SCH ×6 (08:18→18:43)
--- NOTE | 2019-02-05 09:34 | PN ---
Progress Note - Progress Note Date of Service: 02/05/19 Note: S: Seen w/ Dr. Guillen. POD #5. Feels better. Wants to eat/drink. Passing flatus and had (accidental) loose stool this am. Denies pain, N/V. Urine still very concentrated. Ambulating well; using IS. O: Vital Signs - 8 hr 02/05/19 02/05/19 02/05/19 02:22 03:44 07:43 Temperature 97.9 F 97.7 F Pulse Rate 111 95 Respiratory 16 16 Rate Blood Pressure 124/42 114/59 (mmHg) O2 Sat by Pulse 93 93 96 Oximetry 02/05/19 08:15 Temperature Pulse Rate Respiratory 16 Rate Blood Pressure (mmHg) O2 Sat by Pulse 96 Oximetry Intake and Output Last 24 Hours 02/03/19 02/04/19 02/05/19 02/06/19 06:59 06:59 06:59 06:59 Intake Total 3814 1570 4221 Output Total 1405 3370 4400 Balance 2409 -1800 -179 Intake: IV Fluids 2054 915 2721 D5W 1/2 NS 20 meq KCL 885 915 731 D5W NS 20 meq KCL 990 K+ 100 LR 859 Mg+ 110 NS (0.9%) 100 1000 IVPB 55 100 Acetaminophen 100 Mg+ 55 Oral 8063 569 8196 Output: NG Tube Drainage Amount 1950 3350 Urine 4590 759 8747 Emesis 100 550 Other: Date of Last Bowel t Movement # Bowel Movements 0 1 Estimated Stool Amount Medium Gen: sitting up in bed; appears comfortable Heart: reg Lungs: clear (cXray 02/04: COPD; no acute changes) Abd: min distended; BS hypoactive; soft, nontender to palp; incisions ok Extr: no edema Labs: Laboratory Tests 02/05/19 02/05/19 05:06 05:06 WBC 11.0 H Hgb 11.2 L Sodium 139 D Potassium 2.5 L* Chloride 100 L BUN 13 Creatinine 0.51 A: s/p lap assisted sigmoid colectomy w/ ileus, persistent, though clinically improving hypokalemia (already addressed for repletion by Dr. Toro) P: cont NG, IVF; K+ repletion; will recheck Mg+ as well
[2019-02-05 13:04] LABS: BUN/Creatinine Ratio 27.8 (8-20); Calcium 8.3 mg/dL (8.6-10.3); Magnesium 1.9 mg/dL (1.9-2.7); Potassium 3.2 mmol/L (3.5-5.0)
--- NOTE | 2019-02-05 14:08 | PN ---
Progress Note - Progress Note Date of Service: 02/05/19 SOAP: Subjective: []passing flatus/bm, no abdominal pain pathology reviewed Objective: [] Laboratory Last Values WBC 11.0 10^3/uL (3.5-10.8) H 02/05/19 05:06 RBC 3.91 10^6 /uL (3.70-4.87) 02/05/19 05:06 Hgb 11.2 g/dL (12.0-16.0) L 02/05/19 05:06 Hct 33 % (35-47) L 02/05/19 05:06 MCV 85 fL (80-97) 02/05/19 05:06 MCH 29 pg (27-31) 02/05/19 05:06 MCHC 34 g/dL (31-36) 02/05/19 05:06 RDW 15 % (10.5-15) 02/05/19 05:06 Plt Count 326 10^3/uL (150-450) 02/05/19 05:06 MPV 6.9 fL (7.4-10.4) L 02/05/19 05:06 Neut % (Auto) 83.4 % 02/05/19 05:06 Lymph % (Auto) 3.8 % 02/05/19 05:06 [place] % (Auto) 12.3 % 02/05/19 05:06 Eos % (Auto) 0.3 % 02/05/19 05:06 Baso % (Auto) 0.2 % 02/05/19 05:06 Absolute Neuts (auto) 9.2 10^3/ul (1.5-7.7) H 02/05/19 05:06 Absolute Lymphs (auto) 0.4 10^3/ul (1.0-4.8) L 02/05/19 05:06 Absolute Monos (auto) 1.3 10^3/ul (0-0.8) H 02/05/19 05:06 Absolute Eos (auto) 0.0 10^3/ul (0-0.6) 02/05/19 05:06 Absolute Basos (auto) 0.0 10^3/ul (0-0.2) 02/05/19 05:06 Absolute Nucleated RBC 0.0 10^3/ul 02/05/19 05:06 Nucleated RBC % 0.2 02/05/19 05:06 Sodium 140 mmol/L (135-145) 02/05/19 12:35 Potassium 3.2 mmol/L (3.5-5.0) L 02/05/19 12:35 Chloride 100 mmol/L (101-111) L 02/05/19 12:35 Carbon Dioxide 34 mmol/L (22-32) H 02/05/19 12:35 Anion Gap 6 mmol/L (2-11) 02/05/19 12:35 BUN 15 mg/dL (6-24) 02/05/19 12:35 Creatinine 0.54 mg/dL (0.51-0.95) 02/05/19 12:35 Est GFR ( Amer) 138.0 (>60) 02/05/19 12:35 Est GFR (Non-Af Amer) 114.0 (>60) 02/05/19 12:35 BUN/Creatinine Ratio 27.8 (8-20) H 02/05/19 12:35 Glucose 114 mg/dL (70-100) H 02/05/19 12:35 Calcium 8.3 mg/dL (8.6-10.3) L 02/05/19 12:35 Phosphorus 2.8 mg/dL (2.5-5.0) 02/03/19 05:39 Magnesium 1.9 mg/dL (1.9-2.7) 02/05/19 12:35 Urine Color Petra 02/04/19 12:00 Urine Appearance Cloudy 02/04/19 12:00 Urine pH 7.0 (5-9) 02/04/19 12:00 Ur Specific [place] 1.024 (1.010-1.030) 02/04/19 12:00 Urine Protein 1+(30 mg/dl) (Negative) A 02/04/19 12:00 Urine Ketones Negative (Negative) 02/04/19 12:00 Urine Blood Negative (Negative) 02/04/19 12:00 Urine Nitrate Negative (Negative) 02/04/19 12:00 Urine Bilirubin Negative (Negative) 02/04/19 12:00 Urine Urobilinogen Negative (Negative) 02/04/19 12:00 Ur Leukocyte Esterase Negative (Negative) 02/04/19 12:00 Urine WBC (Auto) Trace(0-5/hpf) (Absent) 02/04/19 12:00 Urine RBC (Auto) 1+(3-5/hpf) (Absent) A 02/04/19 12:00 Ur Squamous Epith Cells Present (Absent) A 02/04/19 12:00 Urine Bacteria Absent (Absent) 02/04/19 12:00 Hyaline Casts Present (Absent) A 02/04/19 12:00 Urine Glucose Negative (Negative) 02/04/19 12:00 Temp Pulse Resp BP Pulse Ox 97.5 F 103 18 132/62 98 02/05/19 11:18 02/05/19 11:18 02/05/19 11:18 02/05/19 11:18 02/05/19 11:18 abdomen soft nd, nt, incision good Assessment: [] stable, improved Plan: []correct electrolytes likely dc ng soon-I think high output is secondary to po intake of h2o
[2019-02-05] MEDS: Lisinopril TAB* 10 MG PO SCH (16:23)
[2019-02-06] MEDS: Heparin VIAL(*) 5000 UNITS/ML VIAL (FIVE THOUSAND) SUBCUT SCH ×3 (05:22→22:15)
[2019-02-06 06:52] LABS: Hematocrit 33 % (35-47); Hemoglobin 10.8 g/dL (12.0-16.0); Mean Corpuscular HGB Conc 33 g/dL (31-36); Mean Corpuscular Hemoglobin 28 pg (27-31); Mean Corpuscular Volume 85 fL (80-97); Mean Platelet Volume 6.5 fL (7.4-10.4); Platelet Count 375 10^3/uL (150-450); Red Blood Count 3.87 10^6 /uL (3.70-4.87); Red Cell Distribution Width 15 % (10.5-15); White Blood Count 12.8 10^3/uL (3.5-10.8)
[2019-02-06 07:03] LABS: ABS Lymphocytes 0.5 10^3/ul (1.0-4.8); ABS Monocytes 1.6 10^3/ul (0-0.8); ABS Neutrophils 10.7 10^3/ul (1.5-7.7); Eosinophil % 0.1 %; Lymphocyte % 4.1 %
[2019-02-06 07:06] LABS: BUN/Creatinine Ratio 27.5 (8-20); Calcium 8.9 mg/dL (8.6-10.3); EGFR African American 147.4 (>60); EGFR Non-African American 121.8 (>60)
[2019-02-06 07:07] LABS: Potassium 2.6 mmol/L (3.5-5.0)
[2019-02-06] MEDS: D5W NS 0.9% 20Meq KCL 1000 ML* 1,000 ML IV SCH (07:16)
[2019-02-06] MEDS: Ketorolac INJ* 15 MG/ML 1 ML VIAL IV PUSH PRN ×3 (07:25→21:11)
[2019-02-06] MEDS: KCL 10 MEQ/50 ML IVPREMIX* 10 MEQ/50 ML BAG IV SCH ×3 (07:43→12:02)
[2019-02-06] MEDS: Lisinopril TAB* 10 MG PO SCH (17:27)
[2019-02-07] MEDS: HYDROcodone/ACETAMIN 5-325 MG* 1 TAB PO PRN (02:46)
[2019-02-07] MEDS: Heparin VIAL(*) 5000 UNITS/ML VIAL (FIVE THOUSAND) SUBCUT SCH ×2 (05:50→15:20)
[2019-02-07 07:03] LABS: BUN/Creatinine Ratio 18.6 (8-20); EGFR African American 102.3 (>60); EGFR Non-African American 84.5 (>60)
[2019-02-07 07:05] LABS: Potassium 2.4 mmol/L (3.5-5.0)
[2019-02-07 07:45] LABS: Magnesium 1.3 mg/dL (1.9-2.7)
[2019-02-07] MEDS: POTASSIUM CHLORIDE 10 MEQ/100 ML IV SCH ×3 (07:59→12:41)
[2019-02-07] MEDS ORDERED: Potassium Chlor TAB* 20 MEQ TAB.ER PO ONE (08:00)
--- NOTE | 2019-02-07 09:09 | PN ---
Progress Note - Progress Note Date of Service: 02/07/19 Note: S: POD #7. Had two large semi-formed stools. Denies N/V. Per nsg, HR irreg. Riana some clear liqs. Feels like she would like to try to adv diet. O: Vital Signs - 8 hr 02/07/19 02/07/19 02/07/19 02:46 03:23 04:43 Temperature 99.6 F Pulse Rate 99 Respiratory 16 16 16 Rate Blood Pressure 130/98 (mmHg) O2 Sat by Pulse 96 Oximetry 02/07/19 07:48 Temperature Pulse Rate Respiratory 18 Rate Blood Pressure (mmHg) O2 Sat by Pulse 96 Oximetry Intake and Output Last 24 Hours 02/05/19 02/06/19 02/07/19 02/08/19 06:59 06:59 06:59 06:59 Intake Total 4221 3091 500 Output Total 4400 4300 1600 Balance -179 -1209 -1100 Intake: IV Fluids 2721979 D5W 1/2 NS 20 meq KCL 731 D5W NS 20 meq KCL 990 1979 NS (0.9%) 1000 IVPB 100 311 10 meq Potassium 311 Acetaminophen 100 Oral 1400 800 500 Output: NG Tube Drainage Amount 3350 3400 800 Urine 1050 900 800 Other: Estimated Void Medium Date of Last Bowel t 02/06/19 02/07/19 Movement # Bowel Movements 1 2 3 Estimated Stool Amount Medium Medium Large # Voids 2 Gen: Appears well, NAD Heart: irreg irreg (though ECG this a.m. shows similar rhythm as previous: sinus w/ supraventricular bigeminy pattern) Lungs: clear Abd: softly distended; incisions ok; BS+, but hypo; soft, though a bit firmer vs 2 days ago. Mildly uncomfortable. Labs: Laboratory Tests 02/07/19 06:22 Potassium 2.4 L* Magnesium 1.3 L A: s/p lap/hand assisted sigmoid colectomy w/ postop ileus, slowly resolving Hypokalemia and hypomagnesemia Irreg HR, appears to be consistent w/ baseline P: KCl repletion already addressed by Dr. Arellano; will also add Mg and recheck later today. Spoke w/ Dr. Guillen who is ok with slow adv of diet.
[2019-02-07] MEDS ORDERED: Magnesium Sulf 4 GM/100 ML IV* 4,000 MG/100 ML BAG IVPB ONE (09:30)
[2019-02-07] MEDS: Ketorolac INJ* 15 MG/ML 1 ML VIAL IV PUSH PRN (09:49)
[2019-02-07] MEDS ORDERED: NS 0.9% 1000 ML** 1,000 ML IV ONE (11:07)
--- NOTE | 2019-02-07 11:35 | PN ---
Progress Note - Progress Note Date of Service: 02/07/19 Note: 02/07/19 1045 BP 68/40,RR 24-28,HR irreg as previously noted;Abd:few bs,softly distended,minimal tenderness,incisions C/D/I;pt states that she feels very weak, denies chest pain or dizziness;mild nausea,no vomiting;scant flatus;1liter of JOSE cuadra and Dr Guillen updated,Hospitalist consult requested;pt and her updated; pointed out area of erythema and abrasion on sacrum,discussed skin care and positioning with her nurse and I asked Christie Comer NP to also advise.RADHA Butcher
[2019-02-07] MEDS ORDERED: KCL 20 MEQ/100 ML IVPREMIX* 20 MEQ/100 ML BAG IV SCH (13:00)
[2019-02-07 15:00] LABS: Calcium 7.7 mg/dL (8.6-10.3); Magnesium 2.9 mg/dL (1.9-2.7); Potassium 3.2 mmol/L (3.5-5.0)
[2019-02-07] MEDS ORDERED: NS 0.9% 1000 ML** 1,000 ML IV SCH ×2 (15:00→16:12)
[2019-02-07 15:06] LABS: EGFR African American 82.9 (>60); EGFR Non-African American 68.5 (>60)
[2019-02-07 16:00] LABS: ABS Lymphocytes 0.4 10^3/ul (1.0-4.8); ABS Monocytes 0.4 10^3/ul (0-0.8); ABS Neutrophils 8.4 10^3/ul (1.5-7.7); Hematocrit 34 % (35-47); Hemoglobin 11.4 g/dL (12.0-16.0); Lymphocyte % 4.8 %; Mean Corpuscular HGB Conc 34 g/dL (31-36); Mean Corpuscular Hemoglobin 29 pg (27-31); Mean Corpuscular Volume 85 fL (80-97); Mean Platelet Volume 7.3 fL (7.4-10.4); Nucleated Red Blood Cells % 0.1; Platelet Count 351 10^3/uL (150-450); Red Blood Count 3.98 10^6 /uL (3.70-4.87); Red Cell Distribution Width 15 % (10-15); White Blood Count 9.2 10^3/uL (3.5-10.8)
[2019-02-07 16:42] LABS: Urine Appearance Cloudy; Urine Bilirubin Negative (Negative); Urine Blood Negative (Negative); Urine Color Amber; Urine Glucose Negative (Negative); Urine Ketones Negative (Negative); Urine Nitrite Negative (Negative); Urine Protein Negative (Negative); Urine Specific Gravity 1.015 (1.010-1.030); Urine Urobilinogen Negative (Negative)
[2019-02-07] MEDS ORDERED: D5W 1/2 NS KCl 20 Meq 1000 ML* 1,000 ML IV SCH (17:00)
[2019-02-07] MEDS ORDERED: Iohexol 300* (CONTRAST) 10 ML SDV IV ONE (17:34)
[2019-02-07] MEDS ORDERED: NS 0.9% IV ONE (17:44)
[2019-02-07] MEDS ORDERED: LACTATED RINGERS 1000 ML/HR *Bolus IV ONE (18:00)
--- NOTE | 2019-02-07 18:00 | CONS ---
CC: Dr. Guillen * CONSULTATION REPORT: DATE OF CONSULT: 02/07/19 PRIMARY CARE PROVIDER: The patient has no primary care provider. REQUESTING PHYSICIAN IN CONSULT: Dr. Guillen. ATTENDING PHYSICIAN: Dr. Wayne (dictated by Jael Spencer NP). REASON FOR CONSULT: Tachycardia and hypotension. HISTORY OF PRESENT ILLNESS/HOSPITAL COURSE: I will refer you to Dr. Blu Mendosa's history and physical dictated on 01/13/19 for complete details, but in short, Ms. Garcia is a 63-year-old female with a past medical history of anemia, hyperlipidemia and hypertension; who presented to [facility] on 01/31 for a laparoscopic, hand-assisted sigmoid colectomy secondary to colon cancer and a colovaginal fistula. The hospitalist team was asked to consult given patient's new hypotension and tachycardia. PAST MEDICAL HISTORY: 1. Anemia. 2. Hyperlipidemia. 3. Hypertension. PAST SURGICAL HISTORY: Meniscal repair in 2011. HOME MEDICATIONS: 1. Aspirin 81 mg p.o. daily. 2. Lisinopril 10 mg p.o. daily. 3. Multivitamin 1 tab p.o. daily. 4. Rosuvastatin 1 tab 20 mg oral daily. ALLERGIES: No known drug allergies. FAMILY HISTORY: The patient reports she had a brother, who from liver cancer. She has a living sister, who has COPD. Dad due to complications of an ulcer. Mom due to an DE. SOCIAL HISTORY: The patient lives with her . The patient is independent in her ADLs. The patient is a former smoker. The patient reports she quit on 01/31/19. The patient is an occasional alcohol drinker, she reports couple times a week, 1 to 2 beers. REVIEW OF SYSTEMS: The patient reports abdominal distention and bloating since around 0300 last evening. The patient reports heartburn. The patient reports feeling weak and tired. The patient reports she has not voided since 0700. She reports she has not passed flatus or bowel movement since 0700. The patient reports difficulty taking a deep breath. The patient denies shortness of breath , chest pain, nausea, vomiting, dizziness, fever, chills, palpitations. A 14- point review of systems was completed and all others were negative. PHYSICAL EXAM: General: Ms. Garcia is a 63-year-old female, who is sitting in bed. Appears to be in no acute distress. Appears stated age. Vital Signs: Temp 98.3, HR 100, RR 24, O2 saturation 97% on room air, BP 81/ 46. HEENT: EOMs intact. PERRLA. Oral mucosa is moist without lesions. Posterior pharynx is clear. Neck: Supple. No lymphadenopathy. Cardiac: S1, S2 present. Increased rate. Regular rhythm. No murmurs, rubs, or gallops. Respiratory: Lungs are clear to auscultation. Good aeration. No wheezes, rhonchi, or rales. Abdomen: Abdomen is soft and distended. No tenderness. Scant crepitus noted in right mid quadrant. Bowel sounds are normoactive, but high-pitched. Incisions to the abdomen are well approximated and free from signs of infection. Extremities: No edema. No clubbing or cyanosis. Pedal pulses are 2+ bilaterally. Musculoskeletal: No pain or deformities. Skin: Skin is grossly intact. Neuro: Neuro exam is grossly intact. No focal deficits or weakness. DIAGNOSTIC STUDIES/LAB DATA: WBC 9.2, hemoglobin 11.4, hematocrit 34, platelets 351. Sodium 135, potassium 3.2, chloride 102, carbon dioxide 24, BUN 16, creatinine 0.84, calcium 7.7, magnesium 2.9. ASSESSMENT AND PLAN: Ms. Garcia is a 63-year-old female with a past medical history significant for anemia, hyperlipidemia, hypertension, who [place] [facility] [place] for a sigmoid colectomy secondary to colon cancer with colovaginal fistula. The patient is currently on short-stay surgical. 1. Tachycardia. The patient had an EKG, which revealed sinus tachycardia with frequent premature atrial contractions. It should be noted that the patient has been persistently tachycardic since 02/02/19. The patient denies chest pain. The patient denies shortness of breath. The patient will be placed on telemetry for further monitoring. The patient's electrolytes have been monitored and repleted accordingly. The patient's magnesium was 1.3 yesterday and is 2.9 today. I would not replace her magnesium any further and repeat a magnesium tomorrow. The patient's potassium is currently 3.2, but it has been as low as 2.5 on this admission. Her electrolyte abnormalities could be contributing to her tachycardia. In addition, given the patient's distended belly and possible crepitus, I am concerned that the patient might have an abdominal etiology for her tachycardia. Finally, the patient could be tachycardic from dehydration; therefore, the patient has been ordered IV fluid resuscitation. I will repeat the patient's electrolytes at 2030 today. 2. Hypotension. It should be mentioned that the patient was normotensive last night at 0300 and then was noted to be hypotensive at 10:20 today. Since that time, the patient has been persistently hypotensive. We will continue the patient's IV fluid resuscitation. I have recommended that the nurses obtain manual blood pressures to ensure these are correct. We have discontinued the patient's lisinopril, which was given to her last evening and has been given to her during her hospital course. I would encourage holding this until the patient is normotensive again. As mentioned above, with tachycardia, the patient's hypotension could be caused by dehydration and/or abdominal etiology. I would continue IV fluid resuscitation, monitor electrolytes, and abdominal imaging. I would also continue to hold the patient's lisinopril as this can make someone hypotensive in the postop period. As mentioned above, I have ordered manual blood pressures be taken to ensure accuracy. The patient is asymptomatic at this time. Please continue to monitor. I have also ordered telemetry. 3. Abdominal distention. As mentioned above, the patient has significant abdominal distention, which she reports occurred around 0300 this morning. The patient also has not voided or passed flatus since that time. The patient will have a Pope placed. I discussed the abdominal distention with Leona Guzman NP. General Surgery will be ordering imaging of her abdomen. We are awaiting those results. 4. Electrolyte abnormalities. As mentioned above, the patient has had hypokalemia and hypomagnesemia, both of which have been replaced. Repeated electrolytes to be redrawn at 2030. I would recommend repeating them again tomorrow and replacing accordingly. The patient has been ordered IV fluids bolus. 5. Hypertension. The patient carries a history of hypertension, but is currently hypotensive. I would recommend holding her lisinopril. 6. Hyperlipidemia. The patient has a history of high cholesterol and is on atorvastatin. This has been held at this time, which I agree with continuing to hold until the patient has medically improved. 7. Anemia. The patient has a history of anemia and is noted to be very slightly anemic on her labs today. We should continue to monitor the patient's CBC. 8. FEN: The patient has been placed n.p.o. by General Surgery. 9. Full code. 10. DVT prophylaxis: I will defer this to the primary care team of General Surgery. 11. Status post colectomy. I will defer management of this to the primary care team. TIME SPENT: Approximately 45 minutes was spent on this consultation, greater than half the time was spent with the patient and obtaining my history, performing my physical exam, and reviewing my plan of care. This case has been reviewed with my attending, Dr. Wayne, who is in agreement with my plan of care. Reviewed by JAEL SPENCER NP 02/09/19 @ 1816 [id number]/[facility] #: [id number] MTDD
[2019-02-07 18:18] LABS: C Reactive Protein 197.44 mg/L (<8.01)
[2019-02-07 18:23] LABS: C Reactive Protein 223.67 mg/L (<8.01)
[2019-02-07 18:48] LABS: Troponin I 0.01 ng/mL (<0.04)
[2019-02-07] MEDS ORDERED: Buffered Lidocaine 1% SYRIN* 1 ML/SYRINGE INTRADERM ONE (20:23)
[2019-02-07] MEDS ORDERED: ceFOXitin 2 GM IVPREMIX* 2 GM/50 ML BAG ONE (20:39)
[2019-02-07] MEDS ORDERED: Etomidate* 2 MG/ML 10 ML VIAL ONE (20:49)
[2019-02-07] MEDS ORDERED: Rocuronium* 10 MG/ML VIAL ONE ×3 (20:49→22:07)
[2019-02-07] MEDS ORDERED: Midazolam* 1 MG/ML 2 ML VIAL (2 MG) ONE (20:50)
[2019-02-07] MEDS ORDERED: Phenylephrine 40 MCG/ML SYRINGE ONE (20:54)
[2019-02-07] MEDS ORDERED: Phenylephrine 10 MG/ML VIAL* 1 ML VIAL ONE ×2 (20:54→22:36)
[2019-02-07] MEDS ORDERED: Lactated Ringers 1000 ML Bag* 1,000 ML IV SCH (21:00)
[2019-02-07] MEDS ORDERED: Lidocaine 2% PF * 5 ML VIAL ONE (21:11)
[2019-02-07] MEDS ORDERED: VASOPRESSIN 20 UNITS/ML 1 ML VIAL ONE (21:37)
[2019-02-07] MEDS ORDERED: Bacitracin OINTMENT* 0.5% 0.5 oz TUBE ONE (22:35)
[2019-02-07] MEDS ORDERED: Heparin VIAL(*) 5000 UNITS/ML VIAL (FIVE THOUSAND) ONE (22:59)
[2019-02-07] MEDS ORDERED: Heparin DRIP 25,000 UNITS(*) 25,000 UNITS/500 ML BAG IV SCH (23:00)
[2019-02-07] MEDS ORDERED: Heparin VIAL(*) 5000 UNITS/ML VIAL (FIVE THOUSAND) IV SCH (23:00)
[2019-02-07] MEDS ORDERED: Propofol* 10 MG/ML 20 ML BTL ONE (23:32)
[2019-02-08] MEDS ORDERED: fentaNYL* 50 MCG/ML 2 ML VIAL (100 MCG VIAL) IV PRN (00:05)
[2019-02-08] MEDS ORDERED: Naloxone* 0.4 MG/ML 1 ML VIAL IV PRN (00:05)
[2019-02-08] MEDS: Cefepime 1 GM in Dextrose(*) 1 GM/50 ML BAG IV SCH ×2 (00:42→13:06)
[2019-02-08 00:45] LABS: EGFR Non-African American 85.9 (>60)
[2019-02-08 00:52] LABS: Hematocrit 31 % (35-47); Hemoglobin 10.3 g/dL (12.0-16.0); Mean Corpuscular HGB Conc 33 g/dL (31-36); Mean Corpuscular Hemoglobin 28 pg (27-31); Mean Corpuscular Volume 86 fL (80-97); Mean Platelet Volume 7.2 fL (7.4-10.4); Platelet Count 268 10^3/uL (150-450); Red Blood Count 3.66 10^6 /uL (3.70-4.87); Red Cell Distribution Width 16 % (10-15); White Blood Count 9.1 10^3/uL (3.5-10.8)
[2019-02-08] MEDS ORDERED: Vancomycin per Pharmacy* NOTE FOLLOW UP SCH (01:00)
[2019-02-08] MEDS ORDERED: Vancomycin(*) 750 MG in NS 0.9% 250 ML* 250 ML IVPB ONE (01:00)
[2019-02-08] MEDS ORDERED: fentaNYL INFUSION 50 MCG/ML* 2,500 MCG/50 ML BAG IV SCH (01:00)
[2019-02-08] MEDS ORDERED: Vancomycin(*) 1,000 MG in NS 0.9% 250 ML* 250 ML IVPB SCH (01:00)
[2019-02-08 01:22] LABS: Calcium 6.7 mg/dL (8.6-10.3); Potassium 2.9 mmol/L (3.5-5.0)
[2019-02-08] MEDS: Lactated Ringers 1000 ML Bag* 1,000 ML IV SCH ×6 (02:18→21:59)
[2019-02-08 02:43] LABS: BUN/Creatinine Ratio 23.2 (8-20)
--- NOTE | 2019-02-08 02:57 | OP ---
DATE OF OPERATION: 02/07/19 - ROOM #ICU-02 DATE OF : 55 SURGEON: Venkat Guillen MD CAMPUS AMBASSADOR: Kal Arellano MD PRE-OP DIAGNOSES: Small bowel obstruction, possible anastomotic leak. POST-OP DIAGNOSES: Small bowel obstruction, purulent peritonitis, necrotic rectal stump, inflamed distal appendix. OPERATIVE PROCEDURE: Exploratory laparotomy, culture and evacuation of purulent peritonitis with abdominal washout, appendectomy, takedown of anastomosis, excised necrotic rectal stump, end colostomy, lysis of adhesion. INDICATIONS FOR PROCEDURE: A 63-year-old female with CT scan findings consistent with small bowel obstruction, abdominal fluid, and concern for possible anastomotic leak. Risks of surgery include but not limited to bleeding , infection, injury to intraabdominal contents, possibility of colostomy all discussed with the patient along with the IN, pneumonia, PE, arrhythmia, even explained. She seemed to understand and wished to proceed with surgery, gave her consent, and all questions were answered. DESCRIPTION OF PROCEDURE: The patient was taken to the operating room and placed supine. Preoperative antibiotics had been given. fter the successful induction of general endotracheal anesthesia, the abdomen was prepped and draped in sterile fashion. Preoperative arterial line was placed by the anesthesiologist. A midline incision was opened and carried down through subcutaneous tissue with blunt dissection. The PDS suture was divided opening the peritoneal cavity and fascia. Immediately a large amount of purulent fluid was encountered which was malodorous. This was aspirated and copious irrigation was performed with warm saline. A fibrinous peel was noted on the small bowel. The tongue of omentum that had been placed over the anastomosis was intact. A retractor was placed in the abdomen, a circular plastic [place] and this assisted with exposure. It became apparent that the small bowel was adhered down to this anastomotic site causing bowel obstruction. The long appendix was also adherent down in this area and the distal end was significantly inflamed and/or compromised. The proximal rectum, separate from the anastomosis, appeared necrotic. The proximal rectum was divided distal to the stapled anastomosis in an area which appeared viable.The distal sigmoid was divided with the same 60mm stapler. A small segment of the mesentery of the colon was divided in order to mobilize the colon for a colostomy. Liver appeared viable, stomach appeared viable, the NG tube was in good position. Spleen appeared viable. Numerous cc's of warm saline were used to irrigate the entire abdomen and aspirated dry. A drain was brought through a separate stab incision in the right lower quadrant, and was placed down in the pelvis over the new staple line on the rectum. EBL was very small. Once the small bowel was run from the ligament of Treitz to the ileocecal valve and noted to be completely viable, it was placed back in the abdomen. A site for colostomy was chosen in the left lower quadrant. Skin was excised. A circular defect was created. The subcutaneous fat was divided with Bovie cautery. The anterior fascia was opened in a cruciate-like fashion. The rectus muscle was divided bluntly along its fibers. Posterior fascia was divided allowing the distal colon to come through the colostomy without tension. Appendix was taken by dividing the base and tying it off with 0-Vicryl ties and using clamp cut-and- tie technique, the mesoappendix was taken as well. Fascia in the midline was then closed using running #1 PDS suture coming from either end of the incision and tied in the mid line. The wound was irrigated with warm saline. Skin was closed loosely with ancelmo. Antibiotic ointment was applied. The colostomy was then secured with 4-0 PDS. Decision was made to leave the patient intubated and brought to the intensive care unit overnight. A contact was made with the hospitalist covering the intensive care unit tonight. The patient overall tolerated the procedure well. EBL was minimal. [id number]/[facility] #: [id number] MTDD
[2019-02-08] MEDS: Norepinephrine 16MCG/ML IVPRE* 4,000 MCG/250 ML BAG IV SCH ×2 (03:31→15:00)
[2019-02-08] MEDS ORDERED: Lactated Ringers 1000 ML Bag* 1,000 ML IV ONE ×2 (03:38→04:00)
[2019-02-08] MEDS: KCL 20 MEQ/100 ML IVPREMIX* 20 MEQ/100 ML BAG IV SCH (05:22)
--- NOTE | 2019-02-08 05:35 | PN ---
Progress Note - Progress Note Date of Service: 02/08/19 Note: Received signout from general surgery and anesthesiology upon transfer to ICU. In OR small area of necrotic rectum and copious purulent pus encountered s/p resection and washout respectively. Difficult to ventilate in OR and was also requiring pressor support with phenylephrine Upon transfer to ICU ventilating more easily on pressure control. Required low dose levophed throughout the night in addition to 2L of LR Fentanyl used for sedation to avoid hypotension but patient largely comfortable and awake on gtt Hypokalemia identified and received 20meq x 2 IV Inititated Vancomycin and cefepime. Repeat labs in AM Sedation holiday per take out waiter Continue abx, consider ID consult and/or addition of flagyl
[2019-02-08 06:02] LABS: Hematocrit 29 % (35-47); Hemoglobin 9.7 g/dL (12.0-16.0); Mean Corpuscular HGB Conc 33 g/dL (31-36); Mean Corpuscular Hemoglobin 28 pg (27-31); Mean Corpuscular Volume 85 fL (80-97); Mean Platelet Volume 7.2 fL (7.4-10.4); Platelet Count 231 10^3/uL (150-450); Red Blood Count 3.45 10^6 /uL (3.70-4.87); Red Cell Distribution Width 16 % (10-15); White Blood Count 12.5 10^3/uL (3.5-10.8)
[2019-02-08 06:06] LABS: ALT 9 U/L (7-52); AST 18 U/L (13-39); Albumin 1.8 g/dL (3.2-5.2); Alkaline Phosphatase 44 U/L (34-104); Anion Gap 5 mmol/L (2-11); BUN/Creatinine Ratio 29.6 (8-20); Blood Urea Nitrogen 16 mg/dL (6-24); CO2 Carbon Dioxide 23 mmol/L (22-32); Calcium 6.7 mg/dL (8.6-10.3); Chloride 107 mmol/L (101-111); Cholesterol 30 mg/dL; Globulin 1.8 g/dL (2-4); Glucose 83 mg/dL (70-100); Magnesium 1.9 mg/dL (1.9-2.7); Phosphorus 3.7 mg/dL (2.5-5.0); Potassium 3.2 mmol/L (3.5-5.0); Sodium 135 mmol/L (135-145); Total Protein 3.6 g/dL (6.4-8.9); Triglycerides 61 mg/dL
[2019-02-08 06:12] LABS: Prealbumin < 3 mg/dL (18-38)
[2019-02-08] MEDS ORDERED: KCL 20 MEQ/100 ML IVPREMIX* 20 MEQ/100 ML BAG IV ONE (07:30)
[2019-02-08 07:42] LABS: Burr Cells 1+
[2019-02-08 07:47] LABS: ABS Eosinophils 0.5 10^3/ul (0-0.6)
[2019-02-08] MEDS: Famotidine IV* 10 MG/ML 2 ML (20 mg) IV SLOW PU SCH (07:48)
[2019-02-08] MEDS: Chlorhexidine MOUTHWASH 0.12%* 15 ML UDC SWISH SPIT SCH ×2 (07:48→10:42)
--- NOTE | 2019-02-08 08:04 | PN ---
Date of Service: 02/08/19 - [facility] note Critical Care Services: Pt seen and examined at bedside. Admission note and daily progress note reviewed. Overnight events noted. Pt is 63 y o f with h/o colon cancer with colo vaginal fistula, anemia, ? COPD, HTN, dyslipidemia who was admitted for colectomy on 01/31/19. Pt had laproscopic and hand assisted sigmoid colectomy on 01/31/19. Pt was taken back to OR on 02/07/[address] scan findings of small bowel obstruction, and concern with anastomotic leak. She had ex lap, cx and evacuation of purulent peritonitis, wash out, appendectomy, excision of necrotic rectal stump, end colostomy and lysis of adhesions under GA. There was difficulty ventilating patient during the procedure and she was left on ventilator overnight. Pt alert and awake this am. Is currently on 45% FiO2. Has required increase in Fentanyl to 100mcg, pain is better controlled this am. Sedation was held given hypotension. Is requiring 5mcg of Levophed. WBC count is elevated, remains afebrile. UO has been trending down Active Medications Generic Name Dose Route Start Last Admin Trade Name Freq PRN Reason Stop Dose Admin Chlorhexidine Gluconate 15 ml 02/08/19 08:00 02/08/19 07:48 Peridex Mouth Wash 0.12%* SWISH SPIT Not Given Q4HR MARISOL Famotidine 20 mg 02/08/19 09:00 02/08/19 07:48 Pepcid Iv* IV SLOW PU 20 mg DAILY MARISOL Administration Heparin Sodium (Porcine) 5,000 units 02/08/19 09:00 Heparin Vial(*) SUBCUT Q12HR MARISOL Norepinephrine Bitartrate 4,000 mcg in 250 mls @ 18.75 mls/hr 02/07/19 23:45 02/08/19 03:31 Levophed 16 Mcg/Ml Premix Bag* IV 18.75 mls/hr .INITIAL RATE MARISOL Administration Protocol 5 MCG/MIN Cefepime HCl 1 gm in 50 mls @ 100 mls/hr 02/08/19 01:00 02/08/19 00:42 Maxipime 1 Gm In Dextrose Duplex (*) IV 100 mls/hr Q12H MARISOL Administration Lactated Ringer's 1,000 mls @ 125 mls/hr 02/08/19 01:00 02/08/19 04:47 Lactated Ringers 1000 Ml Bag* IV 125 mls/hr PER RATE MARISOL Administration Fentanyl Citrate 2,500 mcg in 50 mls @ 0.6 mls/hr 02/08/19 01:00 02/08/19 00: 53 Fentanyl Infusion Bag 50 Mcg/Ml 50 Ml IV 0.6 mls/hr Q72H MARISOL Administration Protocol 30 MCG/HR Vancomycin HCl 500 mg/ Sodium 250 mls @ 0 mls/hr 02/08/19 13:00 Chloride IVPB Q12H MARISOL Potassium Chloride 20 meq in 100 mls @ 50 mls/hr 02/08/19 07:30 02/08/19 07: 48 Potassium Chloride 20 Meq/100 Ml Ivpremix* IV 02/08/19 09:29 50 mls/hr ONCE ONE Administration Ondansetron HCl 4 mg 01/31/19 10:01 02/03/19 20:42 Zofran Inj* IV 4 mg Q6H PRN Administration NAUSEA Pharmacy Consult 1 note 02/08/19 01:00 Vancomycin Per Pharmacy* FOLLOW UP .VANC PER PHARMACY MARISOL Protocol Pharmacy Profile Note 1 note 02/09/19 12:30 Vancomycin Trough Check FOLLOW UP 02/09/19 12:31 1230 ONE Vital Signs: Temp Pulse Resp BP SpO2 FiO2 97.1 F 101 22 100/58 100 50 02/08/19 03:53 02/08/19 06:27 02/08/19 06:00 02/08/19 06:27 02/08/19 06:27 02/08 04:00 Physical Exam: Gen: Pt in NAD HEENT:PERRLA, no JVD, ETT+ Lungs: Good a/e b/l, no wheeze Cardiac: S1, S2+, regular Abdomen:Soft, dressing in place Extremities: Normal ROM Neuro: Alert, awake, follows commands Skin: No rash Fluid Balance (Past 24 Hours): I= 3869 N=8047 Net 2734 Intake & Output 02/06/19 02/07/19 02/08/19 02/09/19 06:59 06:59 06:59 06:59 Intake Total 3091 500 3869 Output Total 4300 1600 1135 20 Balance -1209 -1100 2734 -20 Weight 92 lb 13.034 oz Intake: IV Fluids 1979 3123 10 meq Potassium 151 D5W NS 20 meq KCL 1979 LR 2597 Levophed 56 NS (0.9%) 270 NS 50ML, Cefoxitin 2G 50 IVPB 311 345 10 meq Potassium 311 Abx 293 KCl 52 Oral 800 500 400 Output: NG Tube Drainage Amount 3400 800 KATIE #1 45 Urine 900 800 0 Pope 790 20 Emesis 300 Other: Estimated Void Medium Date of Last Bowel 02/06/19 02/07/19 Movement # Bowel Movements 2 3 Estimated Stool Amount Medium Large # Voids 2 Labs: Laboratory Results - last 24 hr 02/04/19 02/07/19 02/07/19 04:47 14:26 14:32 WBC 9.2 RBC 3.98 Hgb 11.4 L Hct 34 L MCV 85 MCH 29 MCHC 34 RDW 15 Plt Count 351 MPV 7.3 L Neut % (Auto) 91.1 Lymph % (Auto) 4.8 [place] % (Auto) 3.8 Eos % (Auto) 0.0 Baso % (Auto) 0.3 Absolute Neuts (auto) 8.4 H Absolute Lymphs (auto) 0.4 L Absolute Monos (auto) 0.4 Absolute Eos (auto) 0.0 Absolute Basos (auto) 0.0 Absolute Nucleated RBC 0.0 Immature Gran % Neutrophils % Band Neutrophils % Lymphocytes % Monocytes % Eosinophils % Metamyelocytes % Nucleated RBC % 0.1 Abs Neuts (Manual) Abs Lymphs (Manual) Abs Monocytes (Manual) Absolute Eos (Manual) Abs Basophils (Manual) Normal RBC Morphology Anisocytosis Alvarez Cells APTT Patient Temperature ABG pH ABG pH (Temp Correct) ABG pCO2 ABG pCO2 (Temp Corrct ABG pO2 ABG pO2 (Temp Correct ABG HCO3 ABG O2 Saturation ABG Base Excess Respiration Rate O2 Delivery Device Ventilator Type Vent Mode FiO2 Inspiratory Time PEEP Pressure Support Pressure Control EPAP IPAP BiPAP Sodium 128 L Potassium 3.4 L Chloride 94 L Carbon Dioxide 27 Anion Gap 7 BUN 8 Creatinine 0.49 L Est GFR ( Amer) 154.3 Est GFR (Non-Af Amer) 127.6 BUN/Creatinine Ratio 16.3 Glucose 137 H Lactic Acid Calcium 8.8 Phosphorus Magnesium Total Bilirubin AST ALT Alkaline Phosphatase Troponin I C-Reactive Protein 223.67 H Total Protein Albumin Globulin Albumin/Globulin Ratio Prealbumin Triglycerides Cholesterol Urine Color Petra Urine Appearance Cloudy Urine pH 6.0 Ur Specific Mcewen 1.015 Urine Protein Negative Urine Ketones Negative Urine Blood Negative Urine Nitrate Negative Urine Bilirubin Negative Urine Urobilinogen Negative Ur Leukocyte Esterase Negative Urine Glucose Negative 02/07/19 02/07/19 02/07/19 14:37 16:36 21:24 WBC RBC Hgb Hct MCV MCH MCHC RDW Plt Count MPV Neut % (Auto) Lymph % (Auto) [place] % (Auto) Eos % (Auto) Baso % (Auto) Absolute Neuts (auto) Absolute Lymphs (auto) Absolute Monos (auto) Absolute Eos (auto) Absolute Basos (auto) Absolute Nucleated RBC Immature Gran % Neutrophils % Band Neutrophils % Lymphocytes % Monocytes % Eosinophils % Metamyelocytes % Nucleated RBC % Abs Neuts (Manual) Abs Lymphs (Manual) Abs Monocytes (Manual) Absolute Eos (Manual) Abs Basophils (Manual) Normal RBC Morphology Anisocytosis Huxley Cells APTT Patient Temperature ABG pH 7.45 ABG pH (Temp Correct) ABG pCO2 31 L ABG pCO2 (Temp Corrct ABG pO2 107 H ABG pO2 (Temp Correct ABG HCO3 23.7 ABG O2 Saturation 99.2 H ABG Base Excess -1.6 Respiration Rate O2 Delivery Device Ventilator Type Vent Mode FiO2 Inspiratory Time PEEP Pressure Support Pressure Control EPAP IPAP BiPAP Sodium 135 Potassium 3.2 L Chloride 102 Carbon Dioxide 24 Anion Gap 9 BUN 16 Creatinine 0.84 Est GFR ( Amer) 82.9 Est GFR (Non-Af Amer) 68.5 BUN/Creatinine Ratio 19.0 Glucose 85 Lactic Acid 1.8 Calcium 7.7 L Phosphorus Magnesium 2.9 H Total Bilirubin AST ALT Alkaline Phosphatase Troponin I 0.01 C-Reactive Protein 197.44 H Total Protein Albumin Globulin Albumin/Globulin Ratio Prealbumin Triglycerides Cholesterol Urine Color Urine Appearance Urine pH Ur Specific Mcewen Urine Protein Urine Ketones Urine Blood Urine Nitrate Urine Bilirubin Urine Urobilinogen Ur Leukocyte Esterase Urine Glucose 02/07/19 02/08/19 02/08/19 23:05 00:00 00:00 WBC RBC Hgb Hct MCV MCH MCHC RDW Plt Count MPV Neut % (Auto) Lymph % (Auto) [place] % (Auto) Eos % (Auto) Baso % (Auto) Absolute Neuts (auto) Absolute Lymphs (auto) Absolute Monos (auto) Absolute Eos (auto) Absolute Basos (auto) Absolute Nucleated RBC Immature Gran % Neutrophils % Band Neutrophils % Lymphocytes % Monocytes % Eosinophils % Metamyelocytes % Nucleated RBC % Abs Neuts (Manual) Abs Lymphs (Manual) Abs Monocytes (Manual) Absolute Eos (Manual) Abs Basophils (Manual) Normal RBC Morphology Anisocytosis Huxley Cells APTT > 212.0 H* Patient Temperature Not Reportable ABG pH 7.25 L ABG pH (Temp Correct) Not Reportable ABG pCO2 47 H ABG pCO2 (Temp Corrct Not Reportable ABG pO2 157 H ABG pO2 (Temp Correct Not Reportable ABG HCO3 19.7 ABG O2 Saturation 100.0 H ABG Base Excess -6.7 L Respiration Rate 12 O2 Delivery Device Ventilator Type 450 Vent Mode Not Reportable FiO2 50 Inspiratory Time Not Reportable PEEP 5 Pressure Support Not Reportable Pressure Control Not Reportable EPAP Not Reportable IPAP Not Reportable BiPAP Not Reportable Sodium 136 Potassium 2.9 L Chloride 107 Carbon Dioxide 21 L Anion Gap 8 BUN 16 Creatinine 0.69 Est GFR ( Amer) 104.0 Est GFR (Non-Af Amer) 85.9 BUN/Creatinine Ratio 23.2 H Glucose 90 Lactic Acid Calcium 6.7 L Phosphorus Magnesium Total Bilirubin AST ALT Alkaline Phosphatase Troponin I C-Reactive Protein Total Protein Albumin Globulin Albumin/Globulin Ratio Prealbumin Triglycerides Cholesterol Urine Color Urine Appearance Urine pH Ur Specific Mcewen Urine Protein Urine Ketones Urine Blood Urine Nitrate Urine Bilirubin Urine Urobilinogen Ur Leukocyte Esterase Urine Glucose 02/08/19 02/08/19 02/08/19 00:05 00:05 01:10 WBC 9.1 RBC 3.66 L Hgb 10.3 L Hct 31 L MCV 86 MCH 28 MCHC 33 RDW 16 H Plt Count 268 MPV 7.2 L Neut % (Auto) 93.1 Lymph % (Auto) 4.5 [place] % (Auto) 2.1 Eos % (Auto) 0.1 Baso % (Auto) 0.2 Absolute Neuts (auto) 8.5 H Absolute Lymphs (auto) 0.4 L Absolute Monos (auto) 0.2 Absolute Eos (auto) 0.0 Absolute Basos (auto) 0.0 Absolute Nucleated RBC 0.0 Immature Gran % Neutrophils % Band Neutrophils % Lymphocytes % Monocytes % Eosinophils % Metamyelocytes % Nucleated RBC % 0.1 Abs Neuts (Manual) Abs Lymphs (Manual) Abs Monocytes (Manual) Absolute Eos (Manual) Abs Basophils (Manual) Normal RBC Morphology Anisocytosis Huxley Cells APTT > 212.0 H* Patient Temperature Not Reportable ABG pH 7.25 L ABG pH (Temp Correct) Not Reportable ABG pCO2 47 H ABG pCO2 (Temp Corrct Not Reportable ABG pO2 122 H ABG pO2 (Temp Correct Not Reportable ABG HCO3 19.7 ABG O2 Saturation 99.3 H ABG Base Excess -6.7 L Respiration Rate 12 O2 Delivery Device vent Ventilator Type 450 Vent Mode cmv FiO2 50 Inspiratory Time Not Reportable PEEP 5 Pressure Support Not Reportable Pressure Control Not Reportable EPAP Not Reportable IPAP Not Reportable BiPAP Not Reportable Sodium Potassium Chloride Carbon Dioxide Anion Gap BUN Creatinine Est GFR ( Amer) Est GFR (Non-Af Amer) BUN/Creatinine Ratio Glucose Lactic Acid Calcium Phosphorus Magnesium Total Bilirubin AST ALT Alkaline Phosphatase Troponin I C-Reactive Protein Total Protein Albumin Globulin Albumin/Globulin Ratio Prealbumin Triglycerides Cholesterol Urine Color Urine Appearance Urine pH Ur Specific Mcewen Urine Protein Urine Ketones Urine Blood Urine Nitrate Urine Bilirubin Urine Urobilinogen Ur Leukocyte Esterase Urine Glucose 02/08/19 02/08/19 02/08/19 05:38 05:38 05:38 WBC 12.5 H RBC 3.45 L Hgb 9.7 L Hct 29 L MCV 85 MCH 28 MCHC 33 RDW 16 H Plt Count 231 MPV 7.2 L Neut % (Auto) Not Reportable Lymph % (Auto) Not Reportable [place] % (Auto) Not Reportable Eos % (Auto) Not Reportable Baso % (Auto) Not Reportable Absolute Neuts (auto) Not Reportable Absolute Lymphs (auto) Not Reportable Absolute Monos (auto) Not Reportable Absolute Eos (auto) Not Reportable Absolute Basos (auto) Not Reportable Absolute Nucleated RBC Not Reportable Immature Gran % 47.0 H Neutrophils % 38.0 Band Neutrophils % 41.0 H Lymphocytes % 6.0 Monocytes % 5.0 Eosinophils % 4.0 Metamyelocytes % 6.0 H Nucleated RBC % Not Reportable Abs Neuts (Manual) 10.6 H Abs Lymphs (Manual) 0.8 L Abs Monocytes (Manual) 0.6 Absolute Eos (Manual) 0.5 Abs Basophils (Manual) 0.0 Normal RBC Morphology Not Reportable Anisocytosis 1+ Huxley Cells 1+ APTT 44.2 H Patient Temperature ABG pH ABG pH (Temp Correct) ABG pCO2 ABG pCO2 (Temp Corrct ABG pO2 ABG pO2 (Temp Correct ABG HCO3 ABG O2 Saturation ABG Base Excess Respiration Rate O2 Delivery Device Ventilator Type Vent Mode FiO2 Inspiratory Time PEEP Pressure Support Pressure Control EPAP IPAP BiPAP Sodium 135 Potassium 3.2 L Chloride 107 Carbon Dioxide 23 Anion Gap 5 BUN 16 Creatinine 0.54 Est GFR ( Amer) 138.0 Est GFR (Non-Af Amer) 114.0 BUN/Creatinine Ratio 29.6 H Glucose 83 Lactic Acid Calcium 6.7 L Phosphorus 3.7 Magnesium 1.9 Total Bilirubin 1.30 H AST 18 ALT 9 Alkaline Phosphatase 44 Troponin I C-Reactive Protein Total Protein 3.6 L Albumin 1.8 L Globulin 1.8 L Albumin/Globulin Ratio 1.0 Prealbumin < 3 L Triglycerides 61 Cholesterol 30 Urine Color Urine Appearance Urine pH Ur Specific Mcewen Urine Protein Urine Ketones Urine Blood Urine Nitrate Urine Bilirubin Urine Urobilinogen Ur Leukocyte Esterase Urine Glucose Studies: CXR 02/07/19 was personally reviewed- Air space opacity at rt base, evidence of hyperinflation Nutrition: NPO for now, will start as per surgery recommendations Impression: 63 y o f with colon cancer with colo vaginal fistula s/p laproscopic and hand assisted sigmoid colectomy on 01/31/19, complicated course with small bowel obstruction and anastomotic leeak, was taken back to OR on 02/07/19, had ex lap, cx and evacuation of purulent peritonitis, wash out, appendectomy, excision of necrotic rectal stump, end colostomy and lysis of adhesions under GA. 1. Hypercapnic resp failure 2. Colon ca s/p resection 3. Bowel perforation/peritonitis 4. Septic shock sec to abd source 5. Hypokalemia 6.Hypoalbuminemia 7.Anemia 8. Leucocytosis Plan: 1. Neuro: No evidence of delirium, on Fenanyl drip for pain, will titrate down and change to patch after extubation. Pain regimen as needed. 2. CVS: Needing low dose levophed for hypotension sec to sepsis from abd source. Titrate Levo to MAP 65. Tachycardia+. Pt with h/o HTN, meds on hold. Will start when stable. Troponins within normal limits 3. Resp: Hypercapnic resp failure and difficulty ventilating while in OR. Pt is former smoker, evidence of hyperinflation on CXR, ? COPD. No wheeze on auscultation. ABG this am was reviewed, hypercapnia resolved. Pt tolerating spontaneous breathing trial. Possible extubation. Pulm toilet. CXR with rt basal infiltrate. Pt on abx. c/w nebs prn 4. GI: s/p abd surgery, pain controlled. Dressig intact. No output through colostomy. KATIE drain putting out serous fluid. Diet as per sx recommendations. Pt is malnourished, albumin low. GI ppx. 5. ID: Leucocytosis, afebrile. Pt on Cefepime and Vanco. f/u culture results. Lactate normal 6. Haem: Anemia, pt with h/o anemia, Hb normal on admission, trending down, EBL , minimal after sx yesterday. No active bleeding, will monitor closely. 7.Renal: UO trending, will increase Levophed slightly to improve perfusion. No evidence of fluid overload. Will start maintenance fluids. Hyperkalemia, repleted. f/u BMP 8. DVT px: Heparin sq Will d/c Pope catheter OOB to chair after extuabtion if cleared by surgery Rt IJ and A-line in place Will need ICU monitoring today. Critical Care Time: 30 min
[2019-02-08] MEDS: Heparin VIAL(*) 5000 UNITS/ML VIAL (FIVE THOUSAND) SUBCUT SCH ×2 (08:23→21:02)
[2019-02-08 08:53] LABS: Hematocrit 30 % (35-47); Hemoglobin 10.2 g/dL (12.0-16.0); Mean Corpuscular HGB Conc 33 g/dL (31-36); Mean Corpuscular Hemoglobin 28 pg (27-31); Mean Corpuscular Volume 84 fL (80-97); Mean Platelet Volume 7.3 fL (7.4-10.4); Platelet Count 238 10^3/uL (150-450); Red Blood Count 3.61 10^6 /uL (3.70-4.87); Red Cell Distribution Width 16 % (10-15)
[2019-02-08 08:58] LABS: Activated Partial Thrombo Time 43.1 seconds (26.0-38.0); INR 1.64 (0.82-1.09)
[2019-02-08] MEDS ORDERED: Famotidine IV * 20 MG in NS 0.9% 100 ML* 100 ML IVPB SCH (09:00)
[2019-02-08] MEDS ORDERED: Pantoprazole IV* 40 MG IV SCH (09:00)
[2019-02-08] MEDS ORDERED: NS 0.9% 1000 ML** 2,000 ML IV ONE (10:34)
[2019-02-08] MEDS: NS 0.9% 1000 ML** 2,000 ML IV SCH ×2 (10:42→11:42)
[2019-02-08 11:05] LABS: ABS Basophils 0.1 10^3/ul (0-0.2); ABS Lymphocytes 0.3 10^3/ul (1.0-4.8); ABS Monocytes 0.2 10^3/ul (0-0.8); ABS Neutrophils 13.4 10^3/ul (1.5-7.7); Eosinophil % 0.3 %; Lymphocyte % 2.4 %
[2019-02-08] MEDS: Vancomycin(*) 500 MG in NS 0.9% 250 ML* 250 ML IVPB SCH (13:05)
[2019-02-08 13:16] LABS: ABS Eosinophils 0.2 10^3/ul (0-0.6)
--- NOTE | 2019-02-08 13:24 | PN ---
Progress Note - Progress Note Date of Service: 02/08/19 SOAP: Subjective:awake and oriented;abd pain rated 1-2 [] Objective:abd:quiet;midline incision intact with ancelmo,no erythema or drainage ;stoma pink,no output in bag;KATIE serosang,patent;sterile 4x4 dsgs reapplied; afebrile 114/45-105-24;NG output scant;urine output improving, urometer with 50ml for past hour [] Assessment:POD#1 s/p ex lap;evac of purulent peritonitis;excision necrotic rectal stump;end colostomy;appendectomy [] Plan:Medical mgmt as outlined by Dr.Kodali RUIZ as georgie continue NG,await GI function will update Dr Guillen []
--- NOTE | 2019-02-08 14:03 | PN ---
Progress Note - Progress Note Date of Service: 02/08/19 Note: addendum 02/08/19 1400 discussed plan for starting TPN with and reviewed TPN panel with pharmacist,will start TPN this evening; updated.
[2019-02-08 14:56] LABS: Albumin 1.9 g/dL (3.2-5.2); Albumin/Globulin Ratio 1.1 (1-3); Calcium 6.8 mg/dL (8.6-10.3); Globulin 1.8 g/dL (2-4); Phosphorus 3.5 mg/dL (2.5-5.0); Potassium 4.6 mmol/L (3.5-5.0); Total Bilirubin 1.4 mg/dL (0.2-1.0); Total Protein 3.7 g/dL (6.4-8.9)
[2019-02-08 15:14] LABS: BUN/Creatinine Ratio 31.5 (8-20)
[2019-02-08] MEDS: TPN* 24 HR with Dextrose 50% Water* 500 ML, Amino Acid Infusion 10%* 850 ML, Sterile Wa... CENTR SCH ×13 (16:56)
[2019-02-08] MEDS: fentaNYL* 50 MCG/ML 2 ML VIAL (100 MCG VIAL) IV SLOW PU PRN ×2 (17:41→23:41)
[2019-02-09] MEDS: Cefepime 1 GM in Dextrose(*) 1 GM/50 ML BAG IV SCH ×2 (01:09→12:52)
[2019-02-09] MEDS ORDERED: fentaNYL* 50 MCG/ML 2 ML VIAL (100 MCG VIAL) IV SLOW PU ONE (01:17)
[2019-02-09] MEDS ORDERED: Dextrose 50% Syringe 50 ML* 25 GM/50 ML SYRINGE IV PUSH PRN (01:17)
[2019-02-09] MEDS: Vancomycin(*) 500 MG in NS 0.9% 250 ML* 250 ML IVPB SCH (01:38)
[2019-02-09] MEDS ORDERED: Insulin LISPRO* 1 UNITS UNIT SUBCUT SCH ×2 (02:00)
[2019-02-09] MEDS: fentaNYL* 50 MCG/ML 2 ML VIAL (100 MCG VIAL) IV SLOW PU PRN ×6 (04:32→23:23)
[2019-02-09] MEDS: Insulin LISPRO* 1 UNITS UNIT SUBCUT SCH ×5 (05:39→20:54)
[2019-02-09 05:55] LABS: Albumin 1.7 g/dL (3.2-5.2); Albumin/Globulin Ratio 0.9 (1-3); BUN/Creatinine Ratio 39.5 (8-20); Calcium 7.2 mg/dL (8.6-10.3); EGFR African American 179.4 (>60); EGFR Non-African American 148.3 (>60); Globulin 1.8 g/dL (2-4); Magnesium 1.9 mg/dL (1.9-2.7); Phosphorus 1.4 mg/dL (2.5-5.0); Potassium 3.3 mmol/L (3.5-5.0); Total Bilirubin 1.5 mg/dL (0.2-1.0); Total Protein 3.5 g/dL (6.4-8.9)
[2019-02-09 07:24] LABS: ABS Eosinophils 0.1 10^3/ul (0-0.6); ABS Lymphocytes 0.3 10^3/ul (1.0-4.8); ABS Monocytes 0.2 10^3/ul (0-0.8); ABS Neutrophils 7.7 10^3/ul (1.5-7.7); Eosinophil % 1.5 %; Hematocrit 26 % (35-47); Hemoglobin 8.5 g/dL (12.0-16.0); Mean Corpuscular HGB Conc 33 g/dL (31-36); Mean Corpuscular Hemoglobin 28 pg (27-31); Mean Corpuscular Volume 85 fL (80-97); Mean Platelet Volume 8.1 fL (7.4-10.4); Nucleated Red Blood Cells % 0.1; Platelet Count 136 10^3/uL (150-450); Red Blood Count 3.04 10^6 /uL (3.70-4.87); Red Cell Distribution Width 16 % (10-15); White Blood Count 8.4 10^3/uL (3.5-10.8)
[2019-02-09] MEDS: Lactated Ringers 1000 ML Bag* 1,000 ML IV SCH (08:17)
[2019-02-09] MEDS ORDERED: KCL 20 MEQ/100 ML IVPREMIX* 20 MEQ/100 ML BAG IV ONE (08:41)
[2019-02-09] MEDS: Heparin VIAL(*) 5000 UNITS/ML VIAL (FIVE THOUSAND) SUBCUT SCH ×3 (08:56→20:14)
[2019-02-09] MEDS: Famotidine IV* 10 MG/ML 2 ML (20 mg) IV SLOW PU SCH (08:56)
[2019-02-09] MEDS ORDERED: Lactated Ringers 1000 ML Bag* 1,000 ML IV SCH (09:02)
[2019-02-09] MEDS ORDERED: hydrALAZINE IV* 20 MG/ML VIAL IV SLOW PU PRN (10:55)
[2019-02-09] MEDS: KCL 20 MEQ/100 ML IVPREMIX* 20 MEQ/100 ML BAG IV SCH (11:57)
--- NOTE | 2019-02-09 12:09 | PN ---
Date of Service: 02/09/19 - [facility] note Critical Care Services: Pt seen and examined at bedside. Overnight events noted. Pt is 63 y o f with h/o colon cancer with colo vaginal fistula, anemia, ? COPD, HTN, dyslipidemia who was admitted for colectomy on 01/31/19. Pt had laproscopic and hand assisted sigmoid colectomy on 01/31/19. Pt was taken back to OR on 02/07/[address] scan findings of small bowel obstruction, and concern with anastomotic leak. She had ex lap, cx and evacuation of purulent peritonitis, wash out, appendectomy, excision of necrotic rectal stump, end colostomy and lysis of adhesions under GA. There was difficulty ventilating patient during the procedure and she was left on ventilator overnight, was extubated 02/08/19. 24 hr events: Been off Levophed since 4 pm last night. Hemodynamically stable, BP elevated this am, pt with h/o HTN on Lisinopril at home. O2 was tapered to 1L this am ROS: Pain in abd, responds to Fentanyl. Denies SOB, chest pain, N, V. Has not had BM. Denies headache, urinary complaints Active Medications Generic Name Dose Route Start Last Admin Trade Name Freq PRN Reason Stop Dose Admin Dextrose 12.5 gm 02/09/19 01:17 D50w Syringe 50 Ml* IV PUSH .FOR FS < 60 - SS PRN FS < 60 Famotidine 20 mg 02/08/19 09:00 02/09/19 08:56 Pepcid Iv* IV SLOW PU 20 mg DAILY MARISOL Administration Fentanyl Citrate 25 mcg 02/08/19 17:03 02/09/19 08:56 Fentanyl* IV SLOW PU 25 mcg Q4H PRN Administration PAIN Heparin Sodium (Porcine) 5,000 units 02/08/19 09:00 02/09/19 08:56 Heparin Vial(*) SUBCUT 5,000 units Q12HR MARISOL Administration Hydralazine HCl 5 mg 02/09/19 10:55 02/09/19 11:40 Apresoline Iv* IV SLOW PU 5 mg Q6H PRN Administration SYSTOLIC BP GREATER THAN: Cefepime HCl 1 gm in 50 mls @ 100 mls/hr 02/08/19 01:00 02/09/19 01:09 Maxipime 1 Gm In Dextrose Duplex (*) IV 100 mls/hr Q12H MARISOL Administration Vancomycin HCl 500 mg/ Sodium 250 mls @ 166.667 mls/hr 02/08/19 13:00 01:38 Chloride IVPB 166.667 mls/hr Q12H MARISOL Administration Dextrose 500 ml/ Amino Acids 1,859.9063 mls @ 77.496 mls/hr 02/08/19 17:00 16:56 850 ml/ Sterile Water 150 ml/ CENTR 77.496 mls/hr Fat Emulsion Intravenous 250 1700 MARISOL Administration ml/ Sodium Chloride 100 meq/ Potassium Chloride 50 meq/ Potassium Phosphate 10 mmole/ Protocol Calcium Gluconate 20 meq/ Magnesium Sulfate 10 meq/ Multivitamins 10 ml/ Trace Metals 1 ml/ Phytonadione 0.2 mg/ Nutrition (Parenteral) Lactated Ringer's 1,000 mls @ 50 mls/hr 02/09/19 09:02 02/09/19 09:10 Lactated Ringers 1000 Ml Bag* IV 50 mls/hr PER RATE MARISOL Administration Insulin Human Lispro 0 units 02/09/19 05:00 02/09/19 09:25 Humalog* SUBCUT Not Given Q4H [facility] Protocol Ondansetron HCl 4 mg 01/31/19 10:01 02/03/19 20:42 Zofran Inj* IV 4 mg Q6H PRN Administration NAUSEA Pharmacy Consult 1 note 02/08/19 01:00 Vancomycin Per Pharmacy* FOLLOW UP .VANC PER PHARMACY [facility] Protocol Pharmacy Profile Note 1 note 02/09/19 12:30 02/09/19 11:35 Vancomycin Trough Check FOLLOW UP 02/09/19 12:31 1 note 1230 ONE Administration Vital Signs: Temp Pulse Resp BP SpO2 FiO2 98.2 F 113 36 147/76 91 50 02/09/19 07:56 02/09/19 11:30 02/09/19 11:30 02/09/19 11:30 02/09/19 11:30 02/08 07:20 Physical Exam: Gen: Pt in NAD, alert, awake HEENT: PERRLA, no JVD Lungs: Crackles b/l anteriorly. No wheeze Cardiac: S1, S2+, regular, tachycardia+ Abdomen: Soft, BS+, NT, dressing in place Extremities: No edema Neuro: No focal deficits, follows commands Fluid Balance (Past 24 Hours): I= 6286 O= 1142 Net 5144 Intake & Output 02/07/19 02/08/19 02/09/19 02/10/19 06:59 06:59 06:59 06:59 Intake Total 500 3869 6286 Output Total 1600 1135 1142 235 Balance -1100 2734 5144 -235 Weight 92 lb 13.034 oz 95 lb 0.308 oz Intake: IV Fluids 3124 2127 10 meq Potassium 151 Abx 477 LR 2597 1650 Levophed 56 NS (0.9%) 270 NS 50ML, Cefoxitin 2G 50 IVPB 345 3090 Abx 293 171 KCl 52 160 LR 533 Levophed 196 NS (0.9%) 2030 Medicated IV 1069 TPN 1069 Oral 500 400 Output: NG Tube Drainage Amount 800 KATIE #1 45 35 Urine 800 0 Pope 790 1107 235 Emesis 300 Other: Estimated Void Medium Date of Last Bowel 02/07/19 Movement # Bowel Movements 3 Estimated Stool Amount Large # Voids 2 Labs: Laboratory Results - last 24 hr 02/08/19 02/08/19 02/08/19 00:05 05:38 08:34 WBC 9.1 RBC 3.66 L Hgb 10.3 L Hct 31 L MCV 86 MCH 28 MCHC 33 RDW 16 H Plt Count 268 MPV 7.2 L Neut % (Auto) Clockmaker Apprentice Lymph % (Auto) Clockmaker Apprentice [place] % (Auto) Clockmaker Apprentice Eos % (Auto) Clockmaker Apprentice Baso % (Auto) [employer]maker App[employer]ice Absolute Neuts (auto) [employer]maker Apprentice Absolute Lymphs (auto) Clockmaker Apprentice Absolute Monos (auto) Clockmaker Apprentice Absolute Eos (auto) Clockmaker Apprentice Absolute Basos (auto) Clockmaker Apprentice Absolute Nucleated RBC Clockmaker Apprentice Immature Gran % 64.0 H Neutrophils % 25.0 Band Neutrophils % 54.0 H Lymphocytes % 6.0 Monocytes % 3.0 Eosinophils % 2.0 Basophils % 0.0 Metamyelocytes % 7.0 H Myelocytes % 3.0 H Nucleated RBC % Clockmaker Apprentice Abs Neuts (Manual) 8.1 H Abs Lymphs (Manual) 0.5 L Abs Monocytes (Manual) 0.3 Absolute Eos (Manual) 0.2 Abs Basophils (Manual) 0.0 Normal RBC Morphology Normal Hem Pathologist Commnt Sodium 134 L Potassium 4.6 Chloride 107 Carbon Dioxide 21 L Anion Gap 6 BUN 17 Creatinine 0.54 Est GFR ( Amer) 138.0 Est GFR (Non-Af Amer) 114.0 BUN/Creatinine Ratio 31.5 H Glucose 74 POC Glucose (mg/dL) Calcium 6.8 L Phosphorus 3.5 Magnesium Total Bilirubin 1.40 H AST 19 ALT 9 Alkaline Phosphatase 47 Total Protein 3.7 L Albumin 1.9 L Globulin 1.8 L Albumin/Globulin Ratio 1.1 Triglycerides 66 02/08/19 02/08/19 02/09/19 16:25 21:00 01:09 WBC RBC Hgb Hct MCV MCH MCHC RDW Plt Count MPV Neut % (Auto) Lymph % (Auto) [place] % (Auto) Eos % (Auto) Baso % (Auto) Absolute Neuts (auto) Absolute Lymphs (auto) Absolute Monos (auto) Absolute Eos (auto) Absolute Basos (auto) Absolute Nucleated RBC Immature Gran % Neutrophils % Band Neutrophils % Lymphocytes % Monocytes % Eosinophils % Basophils % Metamyelocytes % Myelocytes % Nucleated RBC % Abs Neuts (Manual) Abs Lymphs (Manual) Abs Monocytes (Manual) Absolute Eos (Manual) Abs Basophils (Manual) Normal RBC Morphology Hem Pathologist Commnt Sodium Potassium Chloride Carbon Dioxide Anion Gap BUN Creatinine Est GFR ( Amer) Est GFR (Non-Af Amer) BUN/Creatinine Ratio Glucose POC Glucose (mg/dL) 82 154 H 178 H Calcium Phosphorus Magnesium Total Bilirubin AST ALT Alkaline Phosphatase Total Protein Albumin Globulin Albumin/Globulin Ratio Triglycerides 02/09/19 02/09/19 02/09/19 05:22 05:25 05:25 WBC 8.4 RBC 3.04 L Hgb 8.5 L Hct 26 L MCV 85 MCH 28 MCHC 33 RDW 16 H Plt Count 136 L MPV 8.1 Neut % (Auto) 92.2 Lymph % (Auto) 4.0 [place] % (Auto) 2.0 Eos % (Auto) 1.5 Baso % (Auto) 0.3 Absolute Neuts (auto) 7.7 Absolute Lymphs (auto) 0.3 L Absolute Monos (auto) 0.2 Absolute Eos (auto) 0.1 Absolute Basos (auto) 0.0 Absolute Nucleated RBC 0.0 Immature Gran % Neutrophils % Band Neutrophils % Lymphocytes % Monocytes % Eosinophils % Basophils % Metamyelocytes % Myelocytes % Nucleated RBC % 0.1 Abs Neuts (Manual) Abs Lymphs (Manual) Abs Monocytes (Manual) Absolute Eos (Manual) Abs Basophils (Manual) Normal RBC Morphology Hem Pathologist Commnt Sodium 136 Potassium 3.3 L Chloride 111 Carbon Dioxide 23 Anion Gap 2 BUN 17 Creatinine 0.43 L Est GFR ( Amer) 179.4 Est GFR (Non-Af Amer) 148.3 BUN/Creatinine Ratio 39.5 H Glucose 133 H POC Glucose (mg/dL) 159 H Calcium 7.2 L Phosphorus 1.4 L Magnesium 1.9 Total Bilirubin 1.50 H AST 30 ALT 13 Alkaline Phosphatase 44 Total Protein 3.5 L Albumin 1.7 L Globulin 1.8 L Albumin/Globulin Ratio 0.9 L Triglycerides 132 Nutrition: TPN Impression: 63 y o f with colon cancer with colo vaginal fistula s/p laproscopic and hand assisted sigmoid colectomy on 01/31/19, complicated course with small bowel obstruction and anastomotic leeak, was taken back to OR on 02/07/19, had ex lap, cx and evacuation of purulent peritonitis, wash out, appendectomy, excision of necrotic rectal stump, end colostomy and lysis of adhesions under GA. 1. Hypercapnic resp failure, resolved 2. Colon ca s/p resection 3. Bowel perforation/peritonitis s/p surgical repair 4. Septic shock sec to abd source,resolved, off pressors 5. Hypokalemia, repleted 6.Hypoalbuminemia on TPN 7.Anemia, slight drop today, likely dilutional 8. Leucocytosis, resolved Plan: 1. Neuro: No evidence of delirium, on Fenanyl prn for pain. Pain improved with Fentanyl 2. CVS: Hypotension post procedure, required Levophed, resolved. BP elevated today. Tachycardia+- ? Sec to pain. Pt with h/o HTN, Lisinopril on hold as pt is NPO. Will start Hydrallazine IV prn. 3. Resp: Hypercapnic resp failure and difficulty ventilating while in OR. Extubated 02/08/19, doing well. Pt is former smoker, evidence of hyperinflation on CXR, ? COPD. No wheeze on auscultation. Mild crackles today. O2 requirement is decreased. Will administer Lasix if needed. CXR with rt basal infiltrate. Pt with cough productive of clear secretions Pt on abx. c/w nebs prn. Will rpt CXR in am. 4. GI: s/p abd surgery, pain controlled. Dressing intact. No output through colostomy. KATIE drain putting out serous fluid. Will remove NGT. Diet as per sx recommendations. Pt is malnourished, albumin low, receiving TPN. GI ppx. 5. ID: Leucocytosis improved today, afebrile. Pt on Cefepime and Vanco. f/u culture results. Lactate normal 6. Haem: Anemia, pt with h/o anemia, slight drop in H&H, no bleeding, likely dilutional. EBL, minimal after sx yesterday. No active bleeding, will monitor closely. Thrombocytopenia likely dilutional, will monitor 7.Renal: UO stable, will d/c Pope. No evidence of fluid overload. Will lower maintenance fluid rate. Hyperkalemia, repleted. f/u BMP 8. DVT px: Heparin sq, monitor for thrombocytopenia. Will d/c Pope catheter OOB to chair as tolerated Rt IJ needed for TPN A-line removed Will need ICU monitoring today. Critical Care Time: 25 min
--- NOTE | 2019-02-09 12:20 | PN ---
Progress Note - Progress Note Date of Service: 02/09/19 SOAP: Subjective: Pt seen and examined. Chart reviewed. Case d/w CCM Pt is thirsty. some abdo pain Not OOB yet Objective: Temp Pulse Resp BP Pulse Ox 98.2 F 113 36 147/76 91 02/09/19 07:56 02/09/19 11:30 02/09/19 11:30 02/09/19 11:30 02/09/19 11:30 Intake & Output 02/08/19 02/09/19 02/09/19 22:59 06:59 14:59 Intake Total 1351 1845 Output Total 402 490 525 Balance 949 1355 -525 Weight 95 lb 0.308 oz a and o x3, minimal distress NGT scant output--removed abdo: soft/ distended/ tender/ dressing intact KATIE serous, colostomy- no gas or stool ext: wnl labs noted Assessment: POD 2, takeback, colostomy placement, tachycardic, tachypneic Plan: NPO, TPN d/c koehler, strict I O d/c NGT cont ICU pulm toilet, cxr in am
[2019-02-09] MEDS ORDERED: Vancomycin Trough Check NOTE FOLLOW UP ONE (12:30)
[2019-02-09] MEDS: Vancomycin(*) 1,000 MG in NS 0.9% 250 ML* 250 ML IVPB SCH (13:30)
[2019-02-09] MEDS: TPN* 24 HR with Dextrose 50% Water* 500 ML, Amino Acid Infusion 10%* 850 ML, Sterile Wa... CENTR SCH ×13 (16:37)
[2019-02-10] MEDS: Cefepime 1 GM in Dextrose(*) 1 GM/50 ML BAG IV SCH ×2 (00:46→11:41)
[2019-02-10] MEDS: fentaNYL* 50 MCG/ML 2 ML VIAL (100 MCG VIAL) IV SLOW PU PRN ×10 (01:32→23:01)
[2019-02-10] MEDS: Insulin LISPRO* 1 UNITS UNIT SUBCUT SCH ×6 (01:49→20:57)
[2019-02-10] MEDS: Vancomycin(*) 1,000 MG in NS 0.9% 250 ML* 250 ML IVPB SCH (01:50)
[2019-02-10 05:49] LABS: ABS Eosinophils 0.1 10^3/ul (0-0.6); ABS Lymphocytes 0.5 10^3/ul (1.0-4.8); ABS Monocytes 0.4 10^3/ul (0-0.8); ABS Neutrophils 9.9 10^3/ul (1.5-7.7); Eosinophil % 1.2 %; Hematocrit 26 % (35-47); Hemoglobin 8.7 g/dL (12.0-16.0); Lymphocyte % 4.5 %; Mean Corpuscular HGB Conc 34 g/dL (31-36); Mean Corpuscular Hemoglobin 28 pg (27-31); Mean Corpuscular Volume 84 fL (80-97); Mean Platelet Volume 8.1 fL (7.4-10.4); Platelet Count 129 10^3/uL (150-450); Red Blood Count 3.12 10^6 /uL (3.70-4.87); Red Cell Distribution Width 16 % (10-15); White Blood Count 10.9 10^3/uL (3.5-10.8)
[2019-02-10 06:08] LABS: BUN/Creatinine Ratio 41.2 (8-20); Calcium 7.7 mg/dL (8.6-10.3); EGFR African American 235.3 (>60); EGFR Non-African American 194.5 (>60); Potassium 2.8 mmol/L (3.5-5.0)
[2019-02-10] MEDS: KCL 20 MEQ/100 ML IVPREMIX* 20 MEQ/100 ML BAG IV SCH ×3 (07:36→13:22)
[2019-02-10] MEDS: Heparin VIAL(*) 5000 UNITS/ML VIAL (FIVE THOUSAND) SUBCUT SCH ×2 (07:37→20:44)
[2019-02-10] MEDS: Famotidine IV* 10 MG/ML 2 ML (20 mg) IV SLOW PU SCH (07:37)
[2019-02-10] MEDS: Vancomycin(*) 500 MG in NS 0.9% 250 ML* 250 ML IVPB SCH (07:38)
[2019-02-10 08:36] LABS: Magnesium 1.4 mg/dL (1.9-2.7)
[2019-02-10] MEDS ORDERED: Furosemide IV* 10 MG/ML 2 ML VIAL (20 MG) IV SLOW PU ONE (08:55)
[2019-02-10] MEDS ORDERED: Magnesium Sulfate 2 GM IV* 2 GM/50 ML BAG IVPB ONE (08:58)
--- NOTE | 2019-02-10 09:28 | PN ---
Progress Note - Progress Note Date of Service: 02/10/19 SOAP: Subjective: Pt seen and examined. feels better today than yesterday. Thirsty. no nausea we ambulated and her O2 sat went to 83% on RA. Fatigued Objective: Temp Pulse Resp BP Pulse Ox 97.4 F 100 21 131/83 95 02/10/19 07:24 02/10/19 07:01 02/10/19 08:07 02/10/19 07:00 02/10/19 07:01 Intake & Output 02/09/19 02/10/19 02/10/19 22:59 06:59 14:59 Intake Total 1137 1122 Output Total 628 970 Balance 509 152 a and o x3 abdo: soft/ edematous/ tender w/o rebound dressing removed- staple line intact, no redness KATIE serous ext edematous labs noted. low K CXR: b/l effusion Assessment: POD 3 takeback, colostomy; improving with resp compromise Plan: cont NPO, TPN OOB ok to transfer to floor O2 daily labs replete lytes care d/w CCM
--- NOTE | 2019-02-10 09:57 | PN ---
Date of Service: 02/10/19 - Transfer note Critical Care Services: Pt seen and examined at bedside this am. Pt reports feeling better, cough and secretions are improved. Has not had BM or passed gas. Date of admission to hospital: 01/31/19 Reason for admission: Date of ICU admission: 02/07/19 Reason for admission to ICU: Respiratory failure and pressor requirement post op Date of extubation: 02/08/19 Date of transfer out of ICU 02/10/19 24 hr events: Remained hemodynamically stable and off pressors for greater than 36 hrs. Electrolyte abnormalities being repleted. UO good Still requiring O2 supplementation at 3-4L/min. CXR showed b/l effusion, ordered 20mg Lasix Is NPO and is receiving TPN. Active Medications Generic Name Dose Route Start Last Admin Trade Name Freq PRN Reason Stop Dose Admin Dextrose 12.5 gm 02/09/19 01:17 D50w Syringe 50 Ml* IV PUSH .FOR FS < 60 - SS PRN FS < 60 Famotidine 20 mg 02/08/19 09:00 02/10/19 07:37 Pepcid Iv* IV SLOW PU 20 mg DAILY MARISOL Administration Fentanyl Citrate 25 mcg 02/09/19 23:19 02/10/19 09:46 Fentanyl* IV SLOW PU 25 mcg Q2H PRN Administration PAIN Heparin Sodium (Porcine) 5,000 units 02/08/19 09:00 02/10/19 07:37 Heparin Vial(*) SUBCUT 5,000 units Q12HR [facility]OL Administration Hydralazine HCl 5 mg 02/09/19 10:55 02/09/19 11:40 Apresoline Iv* IV SLOW PU 5 mg Q6H PRN Administration SYSTOLIC BP GREATER THAN: Cefepime HCl 1 gm in 50 mls @ 100 mls/hr 02/08/19 01:00 02/10/19 00:46 Maxipime 1 Gm In Dextrose Duplex (*) IV 100 mls/hr Q12H [facility] Administration Dextrose 500 ml/ Amino Acids 1,859.9063 mls @ 77.496 mls/hr 02/08/19 17:00 16:37 850 ml/ Sterile Water 150 ml/ CENTR 77.496 mls/hr Fat Emulsion Intravenous 250 1700 MARISOL Administration ml/ Sodium Chloride 100 meq/ Potassium Chloride 50 meq/ Potassium Phosphate 10 mmole/ Protocol Calcium Gluconate 20 meq/ Magnesium Sulfate 10 meq/ Multivitamins 10 ml/ Trace Metals 1 ml/ Phytonadione 0.2 mg/ Nutrition (Parenteral) Lactated Ringer's 1,000 mls @ 50 mls/hr 02/09/19 09:02 02/09/19 09:10 Lactated Ringers 1000 Ml Bag* IV 50 mls/hr PER RATE MARISOL Administration Vancomycin HCl 1,000 mg/ 250 mls @ 166.667 mls/hr 02/09/19 13:01 02/10/19 01: 50 Sodium Chloride IVPB 166.667 mls/hr Q12H [facility] Administration Potassium Chloride 20 meq in 100 mls @ 50 mls/hr 02/10/19 06:30 02/10/19 09: 47 Potassium Chloride 20 Meq/100 Ml Ivpremix* IV 02/10/19 12:29 50 mls/hr Q2H [facility] Administration Magnesium Sulfate 2 gm in 50 mls @ 50 mls/hr 02/10/19 08:58 02/10/19 09:47 Magnesium Sulfate 2 Gm Iv* IVPB 02/10/19 09:57 50 mls/hr ED ONCE ONE Administration Insulin Human Lispro 0 units 02/09/19 05:00 02/10/19 08:50 Humalog* SUBCUT Not Given Q4H [facility] Protocol Ondansetron HCl 4 mg 01/31/19 10:01 02/03/19 20:42 Zofran Inj* IV 4 mg Q6H PRN Administration NAUSEA Pharmacy Consult 1 note 02/08/19 01:00 Vancomycin Per Pharmacy* FOLLOW UP .VANC PER PHARMACY [facility] Protocol Pharmacy Profile Note 1 note 02/11/19 12:30 Vancomycin Trough Check FOLLOW UP 02/11/19 12:31 1230 ONE Vital Signs: Temp Pulse Resp BP SpO2 FiO2 97.4 F 100 28 131/83 95 50 02/10/19 07:24 02/10/19 07:01 02/10/19 09:46 02/10/19 07:00 02/10/19 07:01 02/09 16:00 Physical Exam: Gen: Pt in NAD, alert, awake HEENT: PERRLA, no JVD Lungs: Crackles b/l at bases. No wheeze Cardiac: S1, S2+, regular, tachycardia+ Abdomen: Soft, BS+, NT, dressing in place Extremities: No edema Neuro: Alert, awake, no focal deficits Fluid Balance (Past 24 Hours): I= 2940 O= 2226 Net 714 Intake & Output 02/08/19 02/09/19 02/10/19 02/11/19 06:59 06:59 06:59 06:59 Intake Total 3869 6286 2940 Output Total 1135 1142 2226 20 Balance 2734 5144 714 -20 Weight 92 lb 13.034 oz 95 lb 0.308 oz Intake: IV Fluids 3124 2127 959 10 meq Potassium 151 Abx 477 LR 2597 1650 959 Levophed 56 NS (0.9%) 270 NS 50ML, Cefoxitin 2G 50 IVPB 345 3090 781 Abx 293 171 452 KCl 52 160 LR 533 329 Levophed 196 NS (0.9%) 2030 Medicated IV 1069 1200 TPN 1069 1200 Oral 400 0 Output: NG Tube Drainage Amount 30 KATIE #1 45 35 110 20 Urine 0 1500 Pope 790 1107 550 Colostomy 36 Emesis 300 Labs: Laboratory Results - last 24 hr 02/09/19 02/09/19 02/09/19 09:25 11:31 14:34 WBC RBC Hgb Hct MCV MCH MCHC RDW Plt Count MPV Neut % (Auto) Lymph % (Auto) [place] % (Auto) Eos % (Auto) Baso % (Auto) Absolute Neuts (auto) Absolute Lymphs (auto) Absolute Monos (auto) Absolute Eos (auto) Absolute Basos (auto) Absolute Nucleated RBC Nucleated RBC % Sodium Potassium Chloride Carbon Dioxide Anion Gap BUN Creatinine Est GFR ( Amer) Est GFR (Non-Af Amer) BUN/Creatinine Ratio Glucose POC Glucose (mg/dL) 145 H 132 H Calcium Magnesium Vancomycin Trough 6.0 02/09/19 02/09/19 02/10/19 16:43 20:50 01:35 WBC RBC Hgb Hct MCV MCH MCHC RDW Plt Count MPV Neut % (Auto) Lymph % (Auto) [place] % (Auto) Eos % (Auto) Baso % (Auto) Absolute Neuts (auto) Absolute Lymphs (auto) Absolute Monos (auto) Absolute Eos (auto) Absolute Basos (auto) Absolute Nucleated RBC Nucleated RBC % Sodium Potassium Chloride Carbon Dioxide Anion Gap BUN Creatinine Est GFR ( Amer) Est GFR (Non-Af Amer) BUN/Creatinine Ratio Glucose POC Glucose (mg/dL) 163 H 127 H 173 H Calcium Magnesium Vancomycin Trough 02/10/19 02/10/19 02/10/19 05:30 05:30 05:35 WBC 10.9 H RBC 3.12 L Hgb 8.7 L Hct 26 L MCV 84 MCH 28 MCHC 34 RDW 16 H Plt Count 129 L MPV 8.1 Neut % (Auto) 90.9 Lymph % (Auto) 4.5 [place] % (Auto) 3.3 Eos % (Auto) 1.2 Baso % (Auto) 0.1 Absolute Neuts (auto) 9.9 H Absolute Lymphs (auto) 0.5 L Absolute Monos (auto) 0.4 Absolute Eos (auto) 0.1 Absolute Basos (auto) 0.0 Absolute Nucleated RBC 0.0 Nucleated RBC % 0.0 Sodium 136 Potassium 2.8 L Chloride 107 Carbon Dioxide 25 Anion Gap 4 BUN 14 Creatinine 0.34 L Est GFR ( Amer) 235.3 Est GFR (Non-Af Amer) 194.5 BUN/Creatinine Ratio 41.2 H Glucose 128 H POC Glucose (mg/dL) 145 H Calcium 7.7 L Magnesium 1.4 L Vancomycin Trough 02/10/19 08:47 WBC RBC Hgb Hct MCV MCH MCHC RDW Plt Count MPV Neut % (Auto) Lymph % (Auto) [place] % (Auto) Eos % (Auto) Baso % (Auto) Absolute Neuts (auto) Absolute Lymphs (auto) Absolute Monos (auto) Absolute Eos (auto) Absolute Basos (auto) Absolute Nucleated RBC Nucleated RBC % Sodium Potassium Chloride Carbon Dioxide Anion Gap BUN Creatinine Est GFR ( Amer) Est GFR (Non-Af Amer) BUN/Creatinine Ratio Glucose POC Glucose (mg/dL) 124 H Calcium Magnesium Vancomycin Trough Studies: CXR: B/l effusions, air space opacity at rt base Nutrition: TPN, to c/w NPO diet as per surgery Impression: Pt is 63 y o f with h/o colon cancer with colo vaginal fistula, anemia, ? COPD, HTN, dyslipidemia who was admitted for colectomy on 01/31/19. Pt had laproscopic and hand assisted sigmoid colectomy on 01/31/19. Pt was taken back to OR on 02/07/[address] scan findings of small bowel obstruction, and concern with anastomotic leak. She had ex lap, cx and evacuation of purulent peritonitis, wash out, appendectomy, excision of necrotic rectal stump, end colostomy and lysis of adhesions under GA. There was difficulty ventilating patient during the procedure and she was admitted to ICU , left on ventilator overnight, was extubated 02/08/19. She has been off vasopressors 1. Hypoxic resp failure sec to PNA and fluid overload sec to hypoalbuminemia 2. Colon ca s/p resection 3. Bowel perforation/peritonitis s/p surgical repair 4. Septic shock sec to abd source,resolved, off pressors 5. Hypokalemia, hypomagnesemia being repleted 6.Hypoalbuminemia on TPN 7.Anemia, stable 8. Hypercapnic resp failure, resolved 9. Leucocytosis, resolved Plan: 1. Neuro: No evidence of delirium, on Fenanyl prn for pain. Pain improved with Fentanyl 2. CVS: Hypotension post procedure, required Levophed, resolved. BP elevated at times. Tachycardia+- ? Sec to pain. Pt with h/o HTN, Lisinopril on hold as pt is NPO. c/w Hydrallazine IV prn. 3. Resp: Hypercapnic resp failure and difficulty ventilating while in OR. Extubated 02/08/19, doing well. Pt is former smoker, evidence of hyperinflation on CXR, ? COPD. No wheeze on auscultation. Mild crackles today. O2 requirement is decreased. Will administer Lasix today. CXR was reviewed personally, with rt basal infiltrate, b/l effusions. Pt with cough productive of clear secretions Pt on abx. c/w nebs prn. 4. GI: s/p abd surgery, pain controlled. Dressing intact. No output through colostomy. KATIE drain putting out serous fluid. Removed NGT 02/09. c/w NPO as per sx recommendations. Pt is malnourished, albumin low, receiving TPN. GI ppx. 5. ID: Leucocytosis improved today, afebrile. Pt on Cefepime and Vanco. f/u culture results. Lactate normal 6. Haem: Anemia, pt with h/o anemia, slight drop in H&H, no bleeding, likely dilutional. EBL, minimal after sx yesterday. No active bleeding, will monitor closely. Thrombocytopenia likely dilutional and recent sx, unlikely to be HIT, will monitor 7.Renal: UO stable, will d/c Pope. No evidence of fluid overload. Will d/c IVF. Hyperkalemia, hypomagensemis repleted. Daily BMP 8. DVT px: Heparin sq, monitor for thrombocytopenia. Will d/c Pope catheter OOB to chair as tolerated Rt IJ needed for TPN Patient stable to be transferred to surgical floor. Medical consult Dr Wade to follow D/w Dr Lim, Dr Wade
[2019-02-10] MEDS ORDERED: Potassium Phosphate IV* 15 MMOLE in NS 0.9% 250 ML* 250 ML IVPB ONE (11:00)
[2019-02-10] MEDS ORDERED: TPN* 24 HR with Dextrose 50% Water* 500 ML, Amino Acid Infusion 10%* 850 ML, Sterile Wa... CENTR SCH ×13 (17:00)
[2019-02-11] MEDS: fentaNYL* 50 MCG/ML 2 ML VIAL (100 MCG VIAL) IV SLOW PU PRN ×6 (01:29→13:13)
[2019-02-11] MEDS: Cefepime 1 GM in Dextrose(*) 1 GM/50 ML BAG IV SCH ×2 (01:36→13:13)
[2019-02-11] MEDS: Insulin LISPRO* 1 UNITS UNIT SUBCUT SCH ×6 (01:38→21:38)
[2019-02-11 05:01] LABS: Hematocrit 24 % (35-47); Hemoglobin 8.3 g/dL (12.0-16.0); Mean Corpuscular HGB Conc 34 g/dL (31-36); Mean Corpuscular Hemoglobin 28 pg (27-31); Mean Corpuscular Volume 83 fL (80-97); Mean Platelet Volume 8.1 fL (7.4-10.4); Platelet Count 149 10^3/uL (150-450); Red Blood Count 2.96 10^6 /uL (3.70-4.87); Red Cell Distribution Width 16 % (10-15); White Blood Count 14.2 10^3/uL (3.5-10.8)
[2019-02-11 05:17] LABS: Albumin/Globulin Ratio 0.9 (1-3); BUN/Creatinine Ratio 56.7 (8-20); Calcium 8.1 mg/dL (8.6-10.3); EGFR African American 271.9 (>60); EGFR Non-African American 224.7 (>60); Globulin 2.2 g/dL (2-4); Magnesium 1.6 mg/dL (1.9-2.7); Phosphorus 1.5 mg/dL (2.5-5.0); Total Bilirubin 0.8 mg/dL (0.2-1.0); Total Protein 4.2 g/dL (6.4-8.9)
[2019-02-11 05:34] LABS: ABS Eosinophils 0.1 10^3/ul (0-0.6); ABS Lymphocytes 0.6 10^3/ul (1.0-4.8); ABS Monocytes 1.1 10^3/ul (0-0.8); ABS Neutrophils 12.3 10^3/ul (1.5-7.7); Eosinophil % 0.9 %; Lymphocyte % 4.4 %
[2019-02-11] MEDS ORDERED: Potassium Phosphate IV* 15 MMOLE in NS 0.9% 250 ML* 250 ML IVPB ONE (07:37)
[2019-02-11] MEDS ORDERED: Magnesium Sulfate 2 GM IV* 2 GM/50 ML BAG IVPB ONE (07:37)
--- NOTE | 2019-02-11 07:54 | PN ---
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 Is s/p sigmoid colectomy. Course complicated by hypotension, tachycardia, abdominal distention. had to go to OR 02/07/19 for ex lap with evacuation of purulent peritonitis, s/p appendectomy, s/p end colostomy , removal of necrotic rectum tip. Subsequently was transferred to the ICU for further care. Was transferred to the floor 02/10/19. This morning, she reports feeling okay, but continues to have burping and abdominal pain at the lower abdomen. No nausea, no vomiting. Is having right IJ central line, and TPN feeds Objective Active Medications: Dextrose (D50w Syringe 50 Ml*) 12.5 gm IV PUSH .FOR FS < 60 - SS PRN PRN Reason: FS < 60 Famotidine (Pepcid Iv*) 20 mg IV SLOW PU DAILY [facility] Last Admin: 02/10/19 07:37 Dose: 20 mg Fentanyl Citrate (Fentanyl*) 25 mcg IV SLOW PU Q2H PRN PRN Reason: PAIN Last Admin: 02/11/19 06:13 Dose: 25 mcg Heparin Sodium (Porcine) (Heparin Vial(*)) 5,000 units SUBCUT Q12HR [facility] Last Admin: 02/10/19 20:44 Dose: 5,000 units Heparin Sodium (Porcine) (Heparin Flush Picc/Ml/Cvc(*)) 1 - 3 ml FLUSH 0600, 1800 [facility]; Protocol Last Admin: 02/11/19 06:19 Dose: 1 ml Hydralazine HCl (Apresoline Iv*) 5 mg IV SLOW PU Q6H PRN PRN Reason: SYSTOLIC BP GREATER THAN: Last Admin: 02/09/19 11:40 Dose: 5 mg Cefepime HCl (Maxipime 1 Gm In Dextrose Duplex (*)) 1 gm in 50 mls @ 100 mls/ hr IV Q12H [facility] Last Admin: 02/11/19 01:36 Dose: 100 mls/hr Dextrose 500 ml/ Amino Acids 850 ml/ Sterile Water 150 ml/Fat Emulsion Intravenous 250 ml/ Sodium Chloride 100 meq/Potassium Chloride 80 meq/Potassium Phosphate 10 mmole/Calcium Gluconate 20 meq/Magnesium Sulfate 15 meq/ Multivitamins 10 ml/ Trace Metals 1 ml/ Phytonadione 0.2 mg/ Nutrition ( Parenteral) 1,876.1378 mls @ 78.172 mls/hr [facility] 1700 [facility]; Protocol Last Admin: 02/10/19 17:27 Dose: 78.172 mls/hr Magnesium Sulfate (Magnesium Sulfate 2 Gm Iv*) 2 gm in 50 mls @ 50 mls/hr IVPB ONCE ONE Stop: 02/11/19 08:36 Potassium Phosphate 15 mmole/ (Sodium Chloride) 255 mls @ 42 mls/hr IVPB ONCE ONE Stop: 02/11/19 13:41 Insulin Human Lispro (Humalog*) 0 units SUBCUT Q4H [facility]; Protocol Last Admin: 02/11/19 05:33 Dose: Not Given Ondansetron HCl (Zofran Inj*) 4 mg IV Q6H PRN PRN Reason: NAUSEA Last Admin: 02/03/19 20:42 Dose: 4 mg Vital Signs - 8 hr 02/11/19 02/11/19 02/11/19 00:36 01:29 02:44 Temperature Pulse Rate Respiratory 22 22 22 Rate Blood Pressure (mmHg) O2 Sat by Pulse Oximetry 02/11/19 02/11/19 02/11/19 02:45 03:50 04:49 Temperature 98.1 F Pulse Rate 108 Respiratory 22 24 22 Rate Blood Pressure 130/69 (mmHg) O2 Sat by Pulse 96 Oximetry 02/11/19 02/11/19 06:13 07:35 Temperature 97.5 F Pulse Rate 100 Respiratory 20 20 Rate Blood Pressure 134/62 (mmHg) O2 Sat by Pulse 94 Oximetry Oxygen Devices in Use Now: Nasal Cannula Appearance: Sitting on bed, not in distress Ears/Nose/Mouth/Throat: Mucous Membranes Moist Respiratory: Clear to Auscultation Cardiovascular: NL Sounds; No Murmurs; No JVD, RRR Abdominal: - - mild abdominal tenderness, hypoactive bowel sounds, with mild distention Extremities: No Edema Neurological: Alert and Oriented x 3 Lines/Tubes/Other Access: Clean, Dry and Intact Central Line Nutrition: TPN Result Diagrams: 02/11/19 04:47 02/11/19 04:47 Microbiology and Other Data: Microbiology 02/08/19 00:00 Anaerobic Culture - Preliminary Body Fluid Bacteroides Fragilis 02/08/19 00:00 Skin and Soft Tissue MRSA/MSSA (PCR - Final Abdomen Mrsa Negative S.aureus Negative Gram Stain - Final Wound Culture - Preliminary Strep Dysgalactiae (Grp C) Pseudomonas Aeruginosa Bacteroides Fragilis 02/08/19 00:25 Nasal Screen MRSA (PCR) - Final Nasal Mrsa Not Detected 02/04/19 12:00 Urine Culture - Final Urine No Growth (<1,000 CFU/mL) Assess/Plan/Problems-Billing Assessment: 63 year old Female with colon cancer, admitted on 01/31/19 for 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 Is s/p sigmoid colectomy. Course complicated by hypotension, tachycardia, abdominal distention. had to go to OR 02/07/19 for ex lap with evacuation of purulent peritonitis, s/p appendectomy, s/p end colostomy , removal of necrotic rectum tip. Subsequently was transferred to the ICU for further care. Was transferred to the floor 02/10/19. - Patient Problems (1) Colon cancer Current Visit: Yes Status: Acute Comment: status post sigmoid colectomy, now with colostomy (2) Peritonitis Current Visit: Yes Status: Acute Code(s): K65.9 - PERITONITIS, UNSPECIFIED SNOMED Code(s): 33783615 Comment: status post drainage of purulent peritonitis. continue cefepime (3) Acute respiratory failure with hypoxia Current Visit: Yes Status: Acute Code(s): J96.01 - ACUTE RESPIRATORY FAILURE WITH HYPOXIA SNOMED Code(s): 78052503 Comment: improving. secondary to pneumonia and volume overload caused by decreased albumin. on cefepime. will try to wean off oxygen (4) Septic shock Current Visit: Yes Status: Acute Code(s): A41.9 - SEPSIS, UNSPECIFIED ORGANISM; R65.21 - SEVERE SEPSIS WITH SEPTIC SHOCK SNOMED Code(s): 15847169 Comment: resolved. due to peritonitis, pneumonia. off pressors. BP normalized. (5) Electrolyte abnormality Current Visit: Yes Status: Acute Code(s): E87.8 - OTH DISORDERS OF ELECTROLYTE AND FLUID BALANCE, NEC SNOMED Code(s): 385805279 Comment: Repletion ordered for K, Mg, Phos on 02/11
[2019-02-11] MEDS: Heparin VIAL(*) 5000 UNITS/ML VIAL (FIVE THOUSAND) SUBCUT SCH ×2 (08:57→21:39)
[2019-02-11] MEDS: Famotidine IV* 10 MG/ML 2 ML (20 mg) IV SLOW PU SCH (08:58)
[2019-02-11] MEDS ORDERED: Vancomycin Trough Check NOTE FOLLOW UP ONE (12:30)
[2019-02-11] MEDS: HYDROmorphone INJ1* 1 MG/ML SYRINGE IV SLOW PU PRN ×5 (14:32→23:48)
[2019-02-11] MEDS: TPN* 24 HR with Dextrose 50% Water* 500 ML, Amino Acid Infusion 10%* 850 ML, Sterile Wa... CENTR SCH ×13 (16:55)
[2019-02-11] MEDS ORDERED: Albuterol 2.5 MG/3 ML NEB.SOL* (0.083%) INH PRN (18:49)
[2019-02-11] MEDS ORDERED: Albuterol 2.5 MG/3 ML NEB.SOL* (0.083%) INH SCH (19:00)
--- NOTE | 2019-02-11 21:03 | PN ---
Progress Note - Progress Note Date of Service: 02/11/19 SOAP: Subjective: []no flatus or bm in ostomy bag, minimal discomfort, ambulating, no nausea Objective: [] Temp Pulse Resp BP Pulse Ox 98.4 F 99 18 122/64 91 02/11/19 19:09 02/11/19 19:09 02/11/19 19:09 02/11/19 19:09 02/11/19 19:09 Laboratory Last Values WBC 14.2 10^3/uL (3.5-10.8) H 02/11/19 04:47 RBC 2.96 10^6 /uL (3.70-4.87) L 02/11/19 04:47 Hgb 8.3 g/dL (12.0-16.0) L 02/11/19 04:47 Hct 24 % (35-47) L 02/11/19 04:47 MCV 83 fL (80-97) 02/11/19 04:47 MCH 28 pg (27-31) 02/11/19 04:47 MCHC 34 g/dL (31-36) 02/11/19 04:47 RDW 16 % (10-15) H 02/11/19 04:47 Plt Count 149 10^3/uL (150-450) L 02/11/19 04:47 MPV 8.1 fL (7.4-10.4) 02/11/19 04:47 Neut % (Auto) 86.8 % 02/11/19 04:47 Lymph % (Auto) 4.4 % 02/11/19 04:47 [place] % (Auto) 7.8 % 02/11/19 04:47 Eos % (Auto) 0.9 % 02/11/19 04:47 Baso % (Auto) 0.1 % 02/11/19 04:47 Absolute Neuts (auto) 12.3 10^3/ul (1.5-7.7) H 02/11/19 04:47 Absolute Lymphs (auto) 0.6 10^3/ul (1.0-4.8) L 02/11/19 04:47 Absolute Monos (auto) 1.1 10^3/ul (0-0.8) H 02/11/19 04:47 Absolute Eos (auto) 0.1 10^3/ul (0-0.6) 02/11/19 04:47 Absolute Basos (auto) 0.0 10^3/ul (0-0.2) 02/11/19 04:47 Absolute Nucleated RBC 0.0 10^3/ul 02/11/19 04:47 Immature Gran % 47.0 % (0-9) H 02/08/19 05:38 Neutrophils % 38.0 % 02/08/19 05:38 Band Neutrophils % 41.0 % (0-8) H 02/08/19 05:38 Lymphocytes % 6.0 % 02/08/19 05:38 Monocytes % 5.0 % 02/08/19 05:38 Eosinophils % 4.0 % 02/08/19 05:38 Basophils % 0.0 % 02/08/19 00:05 Metamyelocytes % 6.0 % (0-2) H 02/08/19 05:38 Myelocytes % 3.0 % (0-1) H 02/08/19 00:05 Nucleated RBC % 0.0 02/11/19 04:47 Abs Neuts (Manual) 10.6 10^3/ul (1.5-7.7) H 02/08/19 05:38 Abs Lymphs (Manual) 0.8 10^3/ul (1.0-4.8) L 02/08/19 05:38 Abs Monocytes (Manual) 0.6 10^3/ul (0-0.8) 02/08/19 05:38 Absolute Eos (Manual) 0.5 10^3/ul (0-0.6) 02/08/19 05:38 Abs Basophils (Manual) 0.0 10^3/ul (0-0.2) 02/08/19 05:38 Normal RBC Morphology Not Reportable 02/08/19 05:38 Anisocytosis 1+ 02/08/19 05:38 Alvarez Cells 1+ 02/08/19 05:38 Hem Pathologist Commnt 02/08/19 05:38 INR (Anticoag Therapy) 1.64 (0.82-1.09) H 02/08/19 08:34 APTT 43.1 seconds (26.0-38.0) H 02/08/19 08:34 Patient Temperature Not Reportable 02/08/19 08:05 ABG pH 7.38 (7.35-7.45) 02/08/19 08:05 ABG pH (Temp Correct) Not Reportable 02/08/19 08:05 ABG pCO2 34 mmHg (35-45) L 02/08/19 08:05 ABG pCO2 (Temp Corrct Not Reportable 02/08/19 08:05 ABG pO2 76 mmHg (80-100) L 02/08/19 08:05 ABG pO2 (Temp Correct Not Reportable 02/08/19 08:05 ABG HCO3 21.6 mmol/L (19-31) 02/08/19 08:05 ABG O2 Saturation 96.8 % (94.0-98.0) 02/08/19 08:05 ABG Base Excess -4.2 mmol/L (-2.0-2.0) L 02/08/19 08:05 Respiration Rate Not Reportable 02/08/19 08:05 O2 Delivery Device vent 02/08/19 01:10 Ventilator Type Not Reportable 02/08/19 08:05 Vent Mode cpap 02/08/19 08:05 FiO2 35 02/08/19 08:05 Inspiratory Time Not Reportable 02/08/19 08:05 PEEP 5 02/08/19 08:05 Pressure Support 5 02/08/19 08:05 Pressure Control Not Reportable 02/08/19 08:05 EPAP Not Reportable 02/08/19 08:05 IPAP Not Reportable 02/08/19 08:05 BiPAP Not Reportable 02/08/19 08:05 Sodium 137 mmol/L (135-145) 02/11/19 04:47 Potassium 3.0 mmol/L (3.5-5.0) L 02/11/19 04:47 Chloride 108 mmol/L (101-111) 02/11/19 04:47 Carbon Dioxide 26 mmol/L (22-32) 02/11/19 04:47 Anion Gap 3 mmol/L (2-11) 02/11/19 04:47 BUN 17 mg/dL (6-24) 02/11/19 04:47 Creatinine 0.30 mg/dL (0.51-0.95) L 02/11/19 04:47 Est GFR ( Amer) 271.9 (>60) 02/11/19 04:47 Est GFR (Non-Af Amer) 224.7 (>60) 02/11/19 04:47 BUN/Creatinine Ratio 56.7 (8-20) H 02/11/19 04:47 Glucose 87 mg/dL (70-100) 02/11/19 04:47 POC Glucose (mg/dL) 138 mg/dL (70-100) H 02/11/19 16:53 Lactic Acid 1.8 mmol/L (0.5-2.0) 02/07/19 16:36 Calcium 8.1 mg/dL (8.6-10.3) L 02/11/19 04:47 Phosphorus 1.5 mg/dL (2.5-5.0) L 02/11/19 04:47 Magnesium 1.6 mg/dL (1.9-2.7) L 02/11/19 04:47 Total Bilirubin 0.80 mg/dL (0.2-1.0) 02/11/19 04:47 AST 21 U/L (13-39) 02/11/19 04:47 ALT 16 U/L (7-52) 02/11/19 04:47 Alkaline Phosphatase 93 U/L (34-104) 02/11/19 04:47 Troponin I 0.01 ng/mL (<0.04) 02/07/19 14:37 C-Reactive Protein 197.44 mg/L (<8.01) H 02/07/19 14:37 Total Protein 4.2 g/dL (6.4-8.9) L 02/11/19 04:47 Albumin 2.0 g/dL (3.2-5.2) L 02/11/19 04:47 Globulin 2.2 g/dL (2-4) 02/11/19 04:47 Albumin/Globulin Ratio 0.9 (1-3) L 02/11/19 04:47 Prealbumin < 3 mg/dL (18-38) L 02/08/19 05:38 Triglycerides 157 mg/dL 02/11/19 04:47 Cholesterol 30 mg/dL 02/08/19 05:38 Urine Color Petra 02/07/19 14:26 Urine Appearance Cloudy 02/07/19 14:26 Urine pH 6.0 (5-9) 02/07/19 14:26 Ur Specific [place] 1.015 (1.010-1.030) 02/07/19 14:26 Urine Protein Negative (Negative) 02/07/19 14:26 Urine Ketones Negative (Negative) 02/07/19 14:26 Urine Blood Negative (Negative) 02/07/19 14:26 Urine Nitrate Negative (Negative) 02/07/19 14:26 Urine Bilirubin Negative (Negative) 02/07/19 14:26 Urine Urobilinogen Negative (Negative) 02/07/19 14:26 Ur Leukocyte Esterase Negative (Negative) 02/07/19 14:26 Urine WBC (Auto) Trace(0-5/hpf) (Absent) 02/04/19 12:00 Urine RBC (Auto) 1+(3-5/hpf) (Absent) A 02/04/19 12:00 Ur Squamous Epith Cells Present (Absent) A 02/04/19 12:00 Urine Bacteria Absent (Absent) 02/04/19 12:00 Hyaline Casts Present (Absent) A 02/04/19 12:00 Urine Glucose Negative (Negative) 02/07/19 14:26 Vancomycin Trough 2.3 mcg/mL 02/11/19 12:34 Intake & Output 02/09/19 02/10/19 02/11/19 02/12/19 06:59 06:59 06:59 06:59 Intake Total 6286 2940 1191.8 3476 Output Total 1142 2226 2580 855 Balance 5144 714 -1388.2 2621 Weight 95 lb 0.308 oz 115 lb 7 oz Intake: IV Fluids 2127 176 631 9985 Abx 477 LR 1650 959 115 NS (0.9%) 300 TPN 1756 IVPB 3090 781 344 420 ABX - CEFEPIME 55 Abx 171 452 60 55 KCl 160 242 LR 533 329 Levophed 196 Mg+ 42 50 NS (0.9%) 2030 Potassium Phosphate 260 Medicated IV 1069 1200 732.8 TPN 1069 1200 640 potassium PHosphate 92.8 Oral 0 0 1000 Output: NG Tube Drainage Amount 30 KATIE #1 35 110 30 5 Urine 1500 2550 850 Pope 1107 550 Colostomy 36 Other: # Bowel Movements 0 abdomen soft, incision c/d/i Assessment: []stable s/p exploration and washout await return bowel function elevated wbc Plan: []cont iv abx, ID consult for culture results/abx management cont tpn
[2019-02-12] MEDS: Insulin LISPRO* 1 UNITS UNIT SUBCUT SCH ×3 (01:27→09:29)
[2019-02-12] MEDS: Cefepime 1 GM in Dextrose(*) 1 GM/50 ML BAG IV SCH ×2 (01:48→13:04)
[2019-02-12] MEDS: HYDROmorphone INJ1* 1 MG/ML SYRINGE IV SLOW PU PRN ×10 (04:24→23:44)
[2019-02-12 06:56] LABS: Albumin/Globulin Ratio 0.8 (1-3); BUN/Creatinine Ratio 62.5 (8-20); EGFR African American 252.4 (>60); EGFR Non-African American 208.6 (>60); Globulin 2.4 g/dL (2-4); Magnesium 1.8 mg/dL (1.9-2.7); Phosphorus 2.8 mg/dL (2.5-5.0); Potassium 3.4 mmol/L (3.5-5.0); Total Bilirubin 0.6 mg/dL (0.2-1.0); Total Protein 4.4 g/dL (6.4-8.9)
[2019-02-12 07:06] LABS: Total Iron Binding Capacity 204 mcg/dL (250-450); Transferrin 146 mg/dL (203-362)
[2019-02-12 07:08] LABS: % Iron Saturation 8 % (15-55); Iron < 17 ug/dL (50-212)
[2019-02-12 07:26] LABS: Ferritin 195.3 ng/mL (11-307)
[2019-02-12] MEDS ORDERED: Magnesium Sulfate 2 GM IV* 2 GM/50 ML BAG IVPB ONE (07:45)
[2019-02-12] MEDS ORDERED: KCL 20 MEQ/100 ML IVPREMIX* 20 MEQ/100 ML BAG IV ONE (07:46)
[2019-02-12] MEDS ORDERED: Iron Sucrose* 200 MG in NS 0.9% 100 ML* 100 ML IVPB ONE (07:46)
[2019-02-12] MEDS ORDERED: metroNIDAZOLE IV 500 MG/100ML* 500 MG/100 ML BAG IVPB SCH (08:00)
--- NOTE | 2019-02-12 08:00 | PN ---
Subjective Date of Service: 02/12/19 Interval History: Reports feeling better, less tension at the abdomen. reports "I must have passed gas". No nausea, no vomiting. No shortness of breath Objective Active Medications: Albuterol (Ventolin 2.5 Mg/3 Ml Neb.Dinora*) 2.5 mg INH Q4H PRN PRN Reason: SOB/WHEEZING Dextrose (D50w Syringe 50 Ml*) 12.5 gm IV PUSH .FOR FS < 60 - SS PRN PRN Reason: FS < 60 Famotidine (Pepcid Iv*) 20 mg IV SLOW PU DAILY [facility] Last Admin: 02/11/19 08:58 Dose: 20 mg Heparin Sodium (Porcine) (Heparin Vial(*)) 5,000 units SUBCUT Q12HR [facility] Last Admin: 02/11/19 21:39 Dose: 5,000 units Heparin Sodium (Porcine) (Heparin Flush Picc/Ml/Cvc(*)) 1 - 3 ml FLUSH 0600, 1800 [facility]; Protocol Last Admin: 02/12/19 06:33 Dose: 3 ml Hydralazine HCl (Apresoline Iv*) 5 mg IV SLOW PU Q6H PRN PRN Reason: SYSTOLIC BP GREATER THAN: Last Admin: 02/09/19 11:40 Dose: 5 mg Hydromorphone HCl (Dilaudid Inj1s*) 0.5 mg IV SLOW PU Q2H PRN PRN Reason: PAIN Last Admin: 02/12/19 06:33 Dose: 0.5 mg Cefepime HCl (Maxipime 1 Gm In Dextrose Duplex (*)) 1 gm in 50 mls @ 100 mls/ hr IV Q12H [facility] Last Admin: 02/12/19 01:48 Dose: 100 mls/hr Dextrose 500 ml/ Amino Acids 850 ml/ Sterile Water 150 ml/Fat Emulsion Intravenous 250 ml/ Sodium Chloride 100 meq/Potassium Chloride 80 meq/Potassium Phosphate 10 mmole/Calcium Gluconate 15 meq/Magnesium Sulfate 15 meq/ Multivitamins 10 ml/ Trace Metals 1 ml/ Phytonadione 0.2 mg/ Nutrition ( Parenteral) 1,865.3858 mls @ 77.724 mls/hr [facility] 1700 [facility]; Protocol Last Admin: 02/11/19 16:55 Dose: 77.724 mls/hr Metronidazole/Sodium Chloride (Flagyl 500 Mg Ivpb*) 500 mg in 100 mls @ 100 mls /hr IVPB Q8H [facility] Magnesium Sulfate (Magnesium Sulfate 2 Gm Iv*) 2 gm in 50 mls @ 50 mls/hr IVPB ONCE ONE Stop: 02/12/19 08:44 Potassium Chloride (Potassium Chloride 20 Meq/100 Ml Ivpremix*) 20 meq in 100 mls @ 50 mls/hr IV ONCE ONE Stop: 02/12/19 09:45 Iron Sucrose 200 mg/ Sodium (Chloride) 110 mls @ 110 mls/hr IVPB ONCE ONE Stop: 02/12/19 08:45 Insulin Human Lispro (Humalog*) 0 units SUBCUT Q4H [facility]; Protocol Last Admin: 02/12/19 05:11 Dose: Not Given Ondansetron HCl (Zofran Inj*) 4 mg IV Q6H PRN PRN Reason: NAUSEA Last Admin: 02/03/19 20:42 Dose: 4 mg Vital Signs - 8 hr 02/12/19 02/12/19 02/12/19 00:15 02:00 04:21 Temperature 97.8 F 97.8 F 98.1 F Pulse Rate 101 99 107 Respiratory 20 20 17 Rate Blood Pressure 135/81 123/68 (mmHg) O2 Sat by Pulse 92 92 92 Oximetry 02/12/19 02/12/19 02/12/19 04:24 04:27 06:33 Temperature Pulse Rate Respiratory 20 20 18 Rate Blood Pressure (mmHg) O2 Sat by Pulse Oximetry 02/12/19 02/12/19 02/12/19 07:13 07:17 07:33 Temperature 97.6 F Pulse Rate 97 Respiratory 17 17 Rate Blood Pressure 116/66 (mmHg) O2 Sat by Pulse 93 Oximetry Appearance: She is lying in bed, not in distress. Eyes: PERRLA Ears/Nose/Mouth/Throat: Mucous Membranes Moist Respiratory: Clear to Auscultation Cardiovascular: NL Sounds; No Murmurs; No JVD, RRR Abdominal: - - surgical scar noted, colostomy bag noted. Bowel sounds normoactive, soft, non-distended, mildly tender Extremities: No Edema Neurological: Alert and Oriented x 3 Lines/Tubes/Other Access: Clean, Dry and Intact Central Line - Right IJ Nutrition: TPN Result Diagrams: 02/11/19 04:47 02/12/19 06:15 Microbiology and Other Data: Microbiology 02/08/19 00:00 Anaerobic Culture - Preliminary Body Fluid Bacteroides Fragilis 02/08/19 00:00 Skin and Soft Tissue MRSA/MSSA (PCR - Final Abdomen Mrsa Negative S.aureus Negative Gram Stain - Final Wound Culture - Preliminary Strep Dysgalactiae (Grp C) Pseudomonas Aeruginosa Bacteroides Fragilis 02/08/19 00:25 Nasal Screen MRSA (PCR) - Final Nasal Mrsa Not Detected 02/04/19 12:00 Urine Culture - Final Urine No Growth (<1,000 CFU/mL) Assess/Plan/Problems-Billing Assessment: 63 year old Female with colon cancer, admitted on 01/31/19 for 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 Is s/p sigmoid colectomy. Course complicated by hypotension, tachycardia, abdominal distention. had to go to OR 02/07/19 for ex lap with evacuation of purulent peritonitis, s/p appendectomy, s/p end colostomy , removal of necrotic rectum tip. Subsequently was transferred to the ICU for further care. Was transferred to the floor 02/10/19. - Patient Problems (1) Colon cancer Current Visit: Yes Status: Acute Comment: status post sigmoid colectomy, now with colostomy (2) Peritonitis Current Visit: Yes Status: Acute Code(s): K65.9 - PERITONITIS, UNSPECIFIED SNOMED Code(s): 20085250 Comment: status post drainage of purulent peritonitis. continue cefepime Multiorgansim in the culture, adding flagyl for anaerobic coverage. (3) Acute respiratory failure with hypoxia Current Visit: Yes Status: Acute Code(s): J96.01 - ACUTE RESPIRATORY FAILURE WITH HYPOXIA SNOMED Code(s): 52427953 Comment: improving. secondary to pneumonia and volume overload caused by decreased albumin. on cefepime, flagyl added 02/12. (4) Septic shock Current Visit: Yes Status: Acute Code(s): A41.9 - SEPSIS, UNSPECIFIED ORGANISM; R65.21 - SEVERE SEPSIS WITH SEPTIC SHOCK SNOMED Code(s): 52797098 Comment: resolved. due to peritonitis, pneumonia. off pressors. BP normalized. (5) Electrolyte abnormality Current Visit: Yes Status: Acute Code(s): E87.8 - OTH DISORDERS OF ELECTROLYTE AND FLUID BALANCE, NEC SNOMED Code(s): 373757634 Comment: Repletion ordered for K, Mg on 02/12 (6) Iron deficiency anemia Current Visit: Yes Status: Acute Code(s): D50.9 - IRON DEFICIENCY ANEMIA, UNSPECIFIED SNOMED Code(s): 09111094 Comment: Iron sucrose one dose ordered. discussed with pharmacy- regimen is to give Iron sucrose 200mg every three weeks. (7) DVT prophylaxis Current Visit: Yes Status: Acute Code(s): Z29.9 - ENCOUNTER FOR PROPHYLACTIC MEASURES, UNSPECIFIED SNOMED Code(s): 979743711 Comment: heparin subQ Status and Disposition: Will get PT evaluation Patient to continue TPN for now. NPO
--- NOTE | 2019-02-12 09:32 | PN ---
Progress Note - Progress Note Date of Service: 02/12/19 SOAP: Events: -01/31/19 Resection of primary colon cancer, repair of colonic-vaginal fistula. Pathology T3, N0 (0/13 LN) - 02/08/19 Re-admission, ischemia large bowl and rectal stump, diverticulitis, perforation. Colon resection and end colostomy. Pathology w/o additional cancer - Now on TPN, antibiotics. BC+ Bacteriods Frag, Pseudomonus. Subjective: []She is doing better. Has been on TPN, some gas in bag but not much. No NGT and no nausea. No recurrent fevers. Pain is controlled, not moving much yet. Would like to walk more. Albuterol (Ventolin 2.5 Mg/3 Ml Neb.Dinora*) 2.5 mg INH Q4H PRN PRN Reason: SOB/WHEEZING Dextrose (D50w Syringe 50 Ml*) 12.5 gm IV PUSH .FOR FS < 60 - SS PRN PRN Reason: FS < 60 Famotidine (Pepcid Iv*) 20 mg IV SLOW PU DAILY [facility] Last Admin: 02/11/19 08:58 Dose: 20 mg Heparin Sodium (Porcine) (Heparin Vial(*)) 5,000 units SUBCUT Q12HR [facility] Last Admin: 02/11/19 21:39 Dose: 5,000 units Heparin Sodium (Porcine) (Heparin Flush Picc/Ml/Cvc(*)) 1 - 3 ml FLUSH 0600, 1800 [facility]; Protocol Last Admin: 02/12/19 06:33 Dose: 3 ml Hydralazine HCl (Apresoline Iv*) 5 mg IV SLOW PU Q6H PRN PRN Reason: SYSTOLIC BP GREATER THAN: Last Admin: 02/09/19 11:40 Dose: 5 mg Hydromorphone HCl (Dilaudid Inj1s*) 0.5 mg IV SLOW PU Q2H PRN PRN Reason: PAIN Last Admin: 02/12/19 08:50 Dose: 0.5 mg Cefepime HCl (Maxipime 1 Gm In Dextrose Duplex (*)) 1 gm in 50 mls @ 100 mls/ hr IV Q12H [facility] Last Admin: 02/12/19 01:48 Dose: 100 mls/hr Dextrose 500 ml/ Amino Acids 850 ml/ Sterile Water 150 ml/Fat Emulsion Intravenous 250 ml/ Sodium Chloride 100 meq/Potassium Chloride 80 meq/Potassium Phosphate 10 mmole/Calcium Gluconate 15 meq/Magnesium Sulfate 15 meq/ Multivitamins 10 ml/ Trace Metals 1 ml/ Phytonadione 0.2 mg/ Nutrition ( Parenteral) 1,865.3858 mls @ 77.724 mls/hr [facility] 1700 [facility]; Protocol Last Admin: 02/11/19 16:55 Dose: 77.724 mls/hr Metronidazole/Sodium Chloride (Flagyl 500 Mg Ivpb*) 500 mg in 100 mls @ 100 mls /hr IVPB Q8H [facility] Last Admin: 02/12/19 08:07 Dose: 100 mls/hr Potassium Chloride (Potassium Chloride 20 Meq/100 Ml Ivpremix*) 20 meq in 100 mls @ 50 mls/hr IV ONCE ONE Stop: 02/12/19 09:45 Insulin Human Lispro (Humalog*) 0 units SUBCUT Q4H [facility]; Protocol Last Admin: 02/12/19 05:11 Dose: Not Given Ondansetron HCl (Zofran Inj*) 4 mg IV Q6H PRN PRN Reason: NAUSEA Last Admin: 02/03/19 20:42 Dose: 4 mg Objective: [] Vital Signs Temp Pulse Resp BP Pulse Ox 97.6 F 97 18 116/66 93 02/12/19 07:17 02/12/19 07:33 02/12/19 08:51 02/12/19 07:17 02/12/19 07:17 HEENT: mucosa moist, no lesions, pale CTA RRR S1S2 +BS but decreased, mild distension Colostomy with serosang fluid, no stool, slight gas EXt tr Edema TPN Assessment: []63 year old with know metastatic colon cancer, solitary hepatic lesion and quesion of pulmoanry lesion as well. 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 She is improving on TPN, has not yet had recovery of bowl function. Plan: []1. Discussed continuation of TPN until taking po fluids, she appears to be healing well. 2. ID. Stable on Cefepime and Falgyl. 3. Discussed status of her colon cancer. There is improved prognosis in treating oligometastatic disease in node negative patients. We will have to determine etiology of pulmonary lesion seen on PET. Future resection of hepatic disease after chemotherapy remains an option. 4. Chemotherapy on hold until full recover. 5. Encouraged ambulation. 6. Will follow while in hospital. 7. Anemia. Check iron and consider IV Iron as long as infection controlled.
[2019-02-12] MEDS: Heparin VIAL(*) 5000 UNITS/ML VIAL (FIVE THOUSAND) SUBCUT SCH ×2 (09:45→21:37)
[2019-02-12] MEDS: Famotidine IV* 10 MG/ML 2 ML (20 mg) IV SLOW PU SCH (09:45)
--- NOTE | 2019-02-12 09:52 | PN ---
Progress Note - Progress Note Date of Service: 02/12/19 SOAP: Subjective: []no nausea, less discomfort, no flatus in bag Objective: [] Temp Pulse Resp BP Pulse Ox 97.6 F 97 18 116/66 93 02/12/19 07:17 02/12/19 07:33 02/12/19 08:51 02/12/19 07:17 02/12/19 07:17 Laboratory Last Values WBC 14.2 10^3/uL (3.5-10.8) H 02/11/19 04:47 RBC 2.96 10^6 /uL (3.70-4.87) L 02/11/19 04:47 Hgb 8.3 g/dL (12.0-16.0) L 02/11/19 04:47 Hct 24 % (35-47) L 02/11/19 04:47 MCV 83 fL (80-97) 02/11/19 04:47 MCH 28 pg (27-31) 02/11/19 04:47 MCHC 34 g/dL (31-36) 02/11/19 04:47 RDW 16 % (10-15) H 02/11/19 04:47 Plt Count 149 10^3/uL (150-450) L 02/11/19 04:47 MPV 8.1 fL (7.4-10.4) 02/11/19 04:47 Neut % (Auto) 86.8 % 02/11/19 04:47 Lymph % (Auto) 4.4 % 02/11/19 04:47 Moca % (Auto) 7.8 % 02/11/19 04:47 Eos % (Auto) 0.9 % 02/11/19 04:47 Baso % (Auto) 0.1 % 02/11/19 04:47 Absolute Neuts (auto) 12.3 10^3/ul (1.5-7.7) H 02/11/19 04:47 Absolute Lymphs (auto) 0.6 10^3/ul (1.0-4.8) L 02/11/19 04:47 Absolute Monos (auto) 1.1 10^3/ul (0-0.8) H 02/11/19 04:47 Absolute Eos (auto) 0.1 10^3/ul (0-0.6) 02/11/19 04:47 Absolute Basos (auto) 0.0 10^3/ul (0-0.2) 02/11/19 04:47 Absolute Nucleated RBC 0.0 10^3/ul 02/11/19 04:47 Immature Gran % 47.0 % (0-9) H 02/08/19 05:38 Neutrophils % 38.0 % 02/08/19 05:38 Band Neutrophils % 41.0 % (0-8) H 02/08/19 05:38 Lymphocytes % 6.0 % 02/08/19 05:38 Monocytes % 5.0 % 02/08/19 05:38 Eosinophils % 4.0 % 02/08/19 05:38 Basophils % 0.0 % 02/08/19 00:05 Metamyelocytes % 6.0 % (0-2) H 02/08/19 05:38 Myelocytes % 3.0 % (0-1) H 02/08/19 00:05 Nucleated RBC % 0.0 02/11/19 04:47 Abs Neuts (Manual) 10.6 10^3/ul (1.5-7.7) H 02/08/19 05:38 Abs Lymphs (Manual) 0.8 10^3/ul (1.0-4.8) L 02/08/19 05:38 Abs Monocytes (Manual) 0.6 10^3/ul (0-0.8) 02/08/19 05:38 Absolute Eos (Manual) 0.5 10^3/ul (0-0.6) 02/08/19 05:38 Abs Basophils (Manual) 0.0 10^3/ul (0-0.2) 02/08/19 05:38 Normal RBC Morphology Not Reportable 02/08/19 05:38 Anisocytosis 1+ 02/08/19 05:38 Alvarez Cells 1+ 02/08/19 05:38 Hem Pathologist Commnt 02/08/19 05:38 INR (Anticoag Therapy) 1.64 (0.82-1.09) H 02/08/19 08:34 APTT 43.1 seconds (26.0-38.0) H 02/08/19 08:34 Patient Temperature Not Reportable 02/08/19 08:05 ABG pH 7.38 (7.35-7.45) 02/08/19 08:05 ABG pH (Temp Correct) Not Reportable 02/08/19 08:05 ABG pCO2 34 mmHg (35-45) L 02/08/19 08:05 ABG pCO2 (Temp Corrct Not Reportable 02/08/19 08:05 ABG pO2 76 mmHg (80-100) L 02/08/19 08:05 ABG pO2 (Temp Correct Not Reportable 02/08/19 08:05 ABG HCO3 21.6 mmol/L (19-31) 02/08/19 08:05 ABG O2 Saturation 96.8 % (94.0-98.0) 02/08/19 08:05 ABG Base Excess -4.2 mmol/L (-2.0-2.0) L 02/08/19 08:05 Respiration Rate Not Reportable 02/08/19 08:05 O2 Delivery Device vent 02/08/19 01:10 Ventilator Type Not Reportable 02/08/19 08:05 Vent Mode cpap 02/08/19 08:05 FiO2 35 02/08/19 08:05 Inspiratory Time Not Reportable 02/08/19 08:05 PEEP 5 02/08/19 08:05 Pressure Support 5 02/08/19 08:05 Pressure Control Not Reportable 02/08/19 08:05 EPAP Not Reportable 02/08/19 08:05 IPAP Not Reportable 02/08/19 08:05 BiPAP Not Reportable 02/08/19 08:05 Sodium 139 mmol/L (135-145) 02/12/19 06:15 Potassium 3.4 mmol/L (3.5-5.0) L 02/12/19 06:15 Chloride 109 mmol/L (101-111) 02/12/19 06:15 Carbon Dioxide 27 mmol/L (22-32) 02/12/19 06:15 Anion Gap 3 mmol/L (2-11) 02/12/19 06:15 BUN 20 mg/dL (6-24) 02/12/19 06:15 Creatinine 0.32 mg/dL (0.51-0.95) L 02/12/19 06:15 Est GFR ( Amer) 252.4 (>60) 02/12/19 06:15 Est GFR (Non-Af Amer) 208.6 (>60) 02/12/19 06:15 BUN/Creatinine Ratio 62.5 (8-20) H 02/12/19 06:15 Glucose 87 mg/dL (70-100) 02/12/19 06:15 POC Glucose (mg/dL) 138 mg/dL (70-100) H 02/12/19 09:17 Lactic Acid 1.8 mmol/L (0.5-2.0) 02/07/19 16:36 Calcium 8.0 mg/dL (8.6-10.3) L 02/12/19 06:15 Phosphorus 2.8 mg/dL (2.5-5.0) 02/12/19 06:15 Magnesium 1.8 mg/dL (1.9-2.7) L 02/12/19 06:15 Iron < 17 ug/dL (50-212) L 02/12/19 06:15 TIBC 204 mcg/dL (250-450) L D 02/12/19 06:15 % Saturation 8 % (15-55) L 02/12/19 06:15 Unsat Iron Binding < 189 ug/dL 02/12/19 06:15 Transferrin 146 mg/dL (203-362) L 02/12/19 06:15 Ferritin 195.3 ng/mL (11-307) 02/12/19 06:15 Total Bilirubin 0.60 mg/dL (0.2-1.0) 02/12/19 06:15 AST 20 U/L (13-39) 02/12/19 06:15 ALT 18 U/L (7-52) 02/12/19 06:15 Alkaline Phosphatase 112 U/L (34-104) H 02/12/19 06:15 Troponin I 0.01 ng/mL (<0.04) 02/07/19 14:37 C-Reactive Protein 197.44 mg/L (<8.01) H 02/07/19 14:37 Total Protein 4.4 g/dL (6.4-8.9) L 02/12/19 06:15 Albumin 2.0 g/dL (3.2-5.2) L 02/12/19 06:15 Globulin 2.4 g/dL (2-4) 02/12/19 06:15 Albumin/Globulin Ratio 0.8 (1-3) L 02/12/19 06:15 Prealbumin < 3 mg/dL (18-38) L 02/08/19 05:38 Triglycerides 114 mg/dL 02/12/19 06:15 Cholesterol 30 mg/dL 02/08/19 05:38 Urine Color Petra 02/07/19 14:26 Urine Appearance Cloudy 02/07/19 14:26 Urine pH 6.0 (5-9) 02/07/19 14:26 Ur Specific [place] 1.015 (1.010-1.030) 02/07/19 14:26 Urine Protein Negative (Negative) 02/07/19 14:26 Urine Ketones Negative (Negative) 02/07/19 14:26 Urine Blood Negative (Negative) 02/07/19 14:26 Urine Nitrate Negative (Negative) 02/07/19 14:26 Urine Bilirubin Negative (Negative) 02/07/19 14:26 Urine Urobilinogen Negative (Negative) 02/07/19 14:26 Ur Leukocyte Esterase Negative (Negative) 02/07/19 14:26 Urine WBC (Auto) Trace(0-5/hpf) (Absent) 02/04/19 12:00 Urine RBC (Auto) 1+(3-5/hpf) (Absent) A 02/04/19 12:00 Ur Squamous Epith Cells Present (Absent) A 02/04/19 12:00 Urine Bacteria Absent (Absent) 02/04/19 12:00 Hyaline Casts Present (Absent) A 02/04/19 12:00 Urine Glucose Negative (Negative) 02/07/19 14:26 Vancomycin Trough 2.3 mcg/mL 02/11/19 12:34 Intake & Output 02/10/19 02/11/19 02/12/19 02/13/19 06:59 06:59 06:59 06:59 Intake Total 2940 1191.8 3676 Output Total 2226 2580 1560 200 Balance 714 -1388.2 2116 -200 Weight 115 lb 7 oz Intake: IV Fluids 101 312 5279 LR 959 115 NS (0.9%) 300 TPN 1756 IVPB 781 344 420 ABX - CEFEPIME 55 Abx 452 60 55 KCl 242 LR 329 Mg+ 42 50 Potassium Phosphate 260 Medicated IV 1200 732.8 TPN 1200 640 potassium PHosphate 92.8 Oral 0 0 1200 Output: NG Tube Drainage Amount 30 KATIE #1 110 30 10 Urine 1500 2550 1550 200 Pope 550 Colostomy 36 Other: # Bowel Movements 0 0 Assessment: []pod #5 re exploration, colostomy, await return of bowel fxn, path reviewed, Plan: [] cont tpn, abx, activity, cultures back, ID consult pending
--- NOTE | 2019-02-12 16:36 | CONS ---
CONSULTATION REPORT: DATE OF CONSULT: 02/12/19 REQUESTING PHYSICIAN: Dr. Guillen. CONSULTING SERVICE: Infectious Disease. REASON FOR CONSULT: Peritonitis. IMPRESSION: 1. Status post sigmoid colectomy and takedown of colovesical fistula for colon malignancy on 01/31/19, and then on 02/07/19 an exploratory laparotomy, evacuation of purulent peritonitis, appendectomy, takedown of anastomosis, excision of necrotic rectal stump, and end colostomy. Cultures from that procedure were group C strep, pseudomonas, and Bacteroides. She is on TPN now and is afebrile without significant abdominal discomfort as long as she is on pain medicine. She has no other focal signs or symptoms of other infection. She has a mild leukocytosis, which likely reflects her multiple surgeries and procedures with a bit of immobility here. I do not think it suggests a worsening infection at this point. 2. T3N0 colon adenocarcinoma, treated with partial colectomy. There is a liver mass with a question, that was biopsied in January and shows metastatic adenocarcinoma. 3. Hyperlipidemia. 4. Hypertension. RECOMMENDATIONS: We will continue cefepime 1 g twice daily and change the Flagyl to 500 mg IV twice daily, which is excellent coverage for this infection and the organisms growing here. We will follow her course here to help determine a duration of therapy. HISTORY OF PRESENT ILLNESS: This is a 63-year-old woman who had had resection of a colon cancer on 01/31/19 and then developed small bowel obstruction and a CT that showed abdominal collections. She was taken to the OR by Dr. Guillen on 02/07/19. She tolerated that procedure well. Her white count subsequently was 12 on 02/08/19, down to 8 on 02/09/19, 10 on 02/10/19, 14 on 02/11/19. She has had no fever during that time. Overall, her energy and stamina are improving. She has been up and walking a bit. She is on TPN via a right IJ catheter, which is not bothersome to her. She does not have a Pope catheter. She has no difficulty or pain with urination. She has no cough or trouble breathing. Her abdominal pain is managed with pain medicine quite well. She has no leg swelling. She has air and some liquid stool through the ostomy, though she is not sure how much. PAST MEDICAL HISTORY: 1. Colon adenocarcinoma, treated with partial colon resection, with metastatic disease to the liver. 2. Iron-deficiency anemia. 3. Hypertension. 4. Hyperlipidemia. MEDICATIONS: 1. Albuterol. 2. Cefepime 1 g IV every 12 hours. 3. Famotidine. 4. Heparin flush through the PICC line. 5. Heparin subcutaneous injection. 6. Hydralazine. 7. Iron sucrose x1. 8. Magnesium sulfate x1. 9. Flagyl 500 mg IV every 8 hours. ALLERGIES: No known drug allergies. FAMILY HISTORY: No recurrent infections. A brother who is from liver cancer. A sister got COPD. Dad due to gastric ulcer. Mother with coronary artery disease. SOCIAL HISTORY: She lives in [place] with her . No sick contacts. REVIEW OF SYSTEMS: A 12-point review was all negative except as noted above in the history of present illness. PHYSICAL EXAM: Vital Signs: Temperature 37, heart rate 97, respiratory rate 25 , blood pressure 102/54, oxygen saturation 90% on 2 L by nasal cannula. In general, she is awake, not in distress. She is not diaphoretic. Neurologic: She is oriented x3. Follows all commands. Moves all her extremities. HEENT: There is no conjunctival hemorrhage. There is no thrush. Neck is supple without mass. There is a right IJ catheter. Heart is regular and tachycardic without murmurs. Lungs: Decreased breath sounds at the base without wheeze or rale. Abdomen: Soft, nontender, nondistended. Skin: There is no rash or splinter hemorrhage. LABORATORY DATA: White blood cell count yesterday was 14, hemoglobin 8, platelets 149. Creatinine 0.3 today. Please see impression and recommendations outlined above, which I have discussed with Dr. Ruiz. [id number]/[facility] #: [id number] [facility] CENTERCelestino
[2019-02-12] MEDS: TPN* 24 HR with Dextrose 50% Water* 500 ML, Amino Acid Infusion 10%* 850 ML, Sterile Wa... CENTR SCH ×13 (17:04)
--- NOTE | 2019-02-12 21:13 | PN ---
Progress Note - Progress Note Date of Service: 02/12/19 Note: Patient with nonsustained runs of svt. Will order BMP and Mg this evening and replete if indicated
[2019-02-12] MEDS: metroNIDAZOLE IV 500 MG/100ML* 500 MG/100 ML BAG IVPB SCH (21:37)
[2019-02-12 21:58] LABS: Anion Gap 3 mmol/L (2-11); Blood Urea Nitrogen 20 mg/dL (6-24); CO2 Carbon Dioxide 25 mmol/L (22-32); Calcium 7.8 mg/dL (8.6-10.3); Chloride 111 mmol/L (101-111); EGFR African American 271.9 (>60); EGFR Non-African American 224.7 (>60); Glucose 107 mg/dL (70-100); Potassium 3.7 mmol/L (3.5-5.0); Sodium 139 mmol/L (135-145)
[2019-02-13] MEDS: Cefepime 1 GM in Dextrose(*) 1 GM/50 ML BAG IV SCH ×2 (01:45→12:58)
[2019-02-13] MEDS: HYDROmorphone INJ1* 1 MG/ML SYRINGE IV SLOW PU PRN ×8 (01:45→21:27)
[2019-02-13 06:59] LABS: BUN/Creatinine Ratio 66.7 (8-20); Calcium 7.7 mg/dL (8.6-10.3); EGFR African American 271.9 (>60); EGFR Non-African American 224.7 (>60); Potassium 3.7 mmol/L (3.5-5.0)
[2019-02-13] MEDS: Heparin VIAL(*) 5000 UNITS/ML VIAL (FIVE THOUSAND) SUBCUT SCH ×2 (08:02→21:35)
[2019-02-13] MEDS: Famotidine IV* 10 MG/ML 2 ML (20 mg) IV SLOW PU SCH (08:02)
[2019-02-13] MEDS: metroNIDAZOLE IV 500 MG/100ML* 500 MG/100 ML BAG IVPB SCH ×2 (09:10→21:36)
--- NOTE | 2019-02-13 09:48 | PN ---
Progress Note - Progress Note Date of Service: 02/13/19 SOAP: Subjective: CC: Abdominal infection HPI: Ms. Garcia is a 63 yo female with PMH significant for colon cancer with liver mets s/p sigmoid colectomy, BRENNA, HTN, and HLD; who underwent an exp lap, evacuation of purulent peritonitis, appy, take down of anastomosis, excision of necrotic rectal stump, and end colostomy. Denies fever, chills, shortness of breath, or vomiting. She reports passing flatus into her ostomy and liquid in the ostomy bag. Reports nausea, that is helped by medications and peppermint. Objective: Vital Signs 02/13/19 02/13/19 02/13/19 07:00 07:17 08:02 Temperature Pulse Rate 96 Respiratory 19 16 20 Rate Blood Pressure 125/65 (mmHg) O2 Sat by Pulse 96 Oximetry Physical Exam: General: NAD, sitting up in a chair Neurological: Alert and Oriented x4 HEENT: Moist MM, no thrush Cardiovascular: Heart rate regular Respiratory: Lung sounds clear Abdominal: Bowel sounds hypoactive; ABD soft, non tender, and non distended. Skin: Colostomy to left side of ABD. Midline ABD incision well approximated with ancelmo intact and open to air Laboratory Results - last 24 hr 02/12/19 02/12/19 02/13/19 09:17 21:36 06:20 Sodium 139 139 Potassium 3.7 3.7 Chloride 111 111 Carbon Dioxide 25 25 Anion Gap 3 3 BUN 20 20 Creatinine < 0.30 L 0.30 L Est GFR ( Amer) 271.9 271.9 Est GFR (Non-Af Amer) 224.7 224.7 BUN/Creatinine Ratio 66.0 H 66.7 H Glucose 107 H 99 POC Glucose (mg/dL) 138 H Calcium 7.8 L 7.7 L Magnesium 2.0 Microbiology 02/08/19 00:00 Anaerobic Culture - Final Body Fluid Bacteroides Fragilis 02/08/19 00:00 Skin and Soft Tissue MRSA/MSSA (PCR - Final Abdomen Mrsa Negative S.aureus Negative Gram Stain - Final Wound Culture - Final Strep Dysgalactiae (Grp C) Pseudomonas Aeruginosa Bacteroides Fragilis 02/08/19 00:25 Nasal Screen MRSA (PCR) - Final Nasal Mrsa Not Detected 02/04/19 12:00 Urine Culture - Final Urine No Growth (<1,000 CFU/mL) Assessment: 1. Peritonitis. Abdominal cultures with group C strep, pseudomonas, and bacteroides. Currently on TPN. Afebrile and continues to have leukocytosis. 2. Leukocytosis. Suspect this is secondary to a leukemoid reaction from surgery and not worsening infection at this point. No other focal signs of infection. Urine culture with no growth. Chest xray without findings of PNA. 3. Colon adenocarcinoma s/p partial colectomy. With metastatic liver mass. Plan: Continue cefepime 1g IV Q12H and Flagyl 500 mg IV Q12H for now. We will continue to follow along.
[2019-02-13 11:50] LABS: ABS Basophils 0.1 10^3/ul (0-0.2); ABS Eosinophils 0.2 10^3/ul (0-0.6); ABS Lymphocytes 0.8 10^3/ul (1.0-4.8); ABS Monocytes 1.3 10^3/ul (0-0.8); ABS Neutrophils 15.1 10^3/ul (1.5-7.7); Eosinophil % 1.4 %; Hematocrit 23 % (35-47); Hemoglobin 7.5 g/dL (12.0-16.0); Lymphocyte % 4.6 %; Mean Corpuscular HGB Conc 32 g/dL (31-36); Mean Corpuscular Hemoglobin 27 pg (27-31); Mean Corpuscular Volume 85 fL (80-97); Mean Platelet Volume 9.4 fL (7.4-10.4); Nucleated Red Blood Cells % 0.1; Platelet Count 360 10^3/uL (150-450); Red Blood Count 2.75 10^6 /uL (3.70-4.87); Red Cell Distribution Width 16 % (10-15); White Blood Count 17.6 10^3/uL (3.5-10.8)
--- NOTE | 2019-02-13 11:54 | PN ---
Progress Note - Progress Note Date of Service: 02/13/19 SOAP: Subjective: [] pain improving, currently none hungry, activity improving Objective: [] Temp Pulse Resp BP Pulse Ox 97.4 F 105 24 129/72 94 02/13/19 11:21 02/13/19 11:21 02/13/19 11:21 02/13/19 11:21 02/13/19 11:21 Abnormal Lab Results 02/12/19 02/13/19 21:36 06:20 Sodium 139 139 Potassium 3.7 3.7 Chloride 111 111 Carbon Dioxide 25 25 Anion Gap 3 3 BUN 20 20 Creatinine < 0.30 L 0.30 L Est GFR ( Amer) 271.9 271.9 Est GFR (Non-Af Amer) 224.7 224.7 BUN/Creatinine Ratio 66.0 H 66.7 H Glucose 107 H 99 Calcium 7.8 L 7.7 L Magnesium 2.0 abdomen soft non distended, incision CDI Assessment: []stable, improving pod#6 using dilaudid only for pain-contributing to slow return bowel fxn Plan: []add toradol to augment pain control, reduce dilaudid continue abx-appreciate ID input cont tpn increase activity
[2019-02-13 12:26] LABS: Polychromasia 1+
[2019-02-13] MEDS: Ketorolac INJ* 30 MG/ML 1 ML VIAL IV PUSH PRN ×2 (14:39→21:32)
--- NOTE | 2019-02-13 15:06 | PN ---
Subjective Date of Service: 02/13/19 Interval History: Ms. Garcia is feeling well today. She is quite tired this afternoon, but that is her only complaint at this point. Pain is better controlled now with increase in pain medication. Has been up ambulating. Denies CP, SOB, N/V. No concerns from nursing. Family History: Unchanged from Admission Social History: Unchanged from Admission Past Medical History: Unchanged from Admission Objective Active Medications: Albuterol (Ventolin 2.5 Mg/3 Ml Neb.Dinora*) 2.5 mg INH Q4H PRN SOB/WHEEZING Dextrose (D50w Syringe 50 Ml*) 12.5 gm IV PUSH .FOR FS < 60 - SS PRN FS < 60 Famotidine (Pepcid Iv*) 20 mg IV SLOW PU DAILY MARISOL Heparin Sodium (Porcine) (Heparin Vial(*)) 5,000 units SUBCUT Q12HR MARISOL Heparin Sodium (Porcine) (Heparin Flush Picc/Ml/Cvc(*)) 1 - 3 ml FLUSH 0600, 1800 MARISOL; Protocol Hydralazine HCl (Apresoline Iv*) 5 mg IV SLOW PU Q6H PRN SYSTOLIC BP GREATER THAN: Hydromorphone HCl (Dilaudid Inj1s*) 1 mg IV SLOW PU Q4H PRN PAIN Cefepime HCl (Maxipime 1 Gm In Dextrose Duplex (*)) 1 gm in 50 mls @ 100 mls/ hr IV Q12H MARISOL Dextrose 500 ml/ Amino Acids 850 ml/ Sterile Water 150 ml/Fat Emulsion Intravenous 250 ml/ Sodium Chloride 100 meq/Potassium Chloride 80 meq/Potassium Phosphate 10 mmole/Calcium Gluconate 15 meq/Magnesium Sulfate 15 meq/ Multivitamins 10 ml/ Trace Metals 1 ml/ Phytonadione 0.2 mg/ Nutrition ( Parenteral) 1,865.3858 mls @ 77.724 mls/hr CENTR 1700 MARISOL; Protocol Metronidazole/Sodium Chloride (Flagyl 500 Mg Ivpb*) 500 mg in 100 mls @ 100 mls /hr IVPB Q12HR MARISOL Ketorolac Tromethamine (Toradol Inj*) 30 mg IV PUSH Q6H PRN PAIN Ondansetron HCl (Zofran Inj*) 4 mg IV Q6H PRN NAUSEA Vital Signs - 8 hr 02/13/19 02/13/19 02/13/19 07:17 08:00 08:02 Temperature Pulse Rate 96 Respiratory 16 19 20 Rate Blood Pressure 125/65 (mmHg) O2 Sat by Pulse 96 94 Oximetry 02/13/19 02/13/19 02/13/19 11:21 12:58 14:05 Temperature 97.4 F Pulse Rate 105 Respiratory 24 22 20 Rate Blood Pressure 129/72 (mmHg) O2 Sat by Pulse 94 Oximetry 02/13/19 14:54 Temperature 97.4 F Pulse Rate 102 Respiratory 22 Rate Blood Pressure 135/67 (mmHg) O2 Sat by Pulse 93 Oximetry Oxygen Devices in Use Now: Nasal Cannula - 2L Appearance: Middle-aged female sitting in chair in NAD Eyes: No Scleral Icterus Ears/Nose/Mouth/Throat: Mucous Membranes Moist Neck: NL Appearance and Movements; NL JVP, Trachea Midline Respiratory: Symmetrical Chest Expansion and Respiratory Effort, Clear to Auscultation Cardiovascular: NL Sounds; No Murmurs; No JVD, RRR Abdominal: NL Sounds; No Tenderness; No Distention Extremities: No Edema Neurological: Alert and Oriented x 3 Lines/Tubes/Other Access: Clean, Dry and Intact Peripheral IV Nutrition: TPN Result Diagrams: 02/13/19 06:20 02/13/19 06:20 Assess/Plan/Problems-Billing Assessment: Ms. 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 Now s/p sigmoid colectomy. Course complicated by hypotension, tachycardia, abdominal distention. Went to OR 02/07/19 for ex lap with evacuation of purulent peritonitis, s/p appendectomy, end colostomy, removal of necrotic rectum tip. Subsequently was transferred to the ICU for further care, and transferred to the floor 02/10/19. - Patient Problems (1) Peritonitis Code(s): K65.9 - PERITONITIS, UNSPECIFIED Comment: - S/p drainage of purulent peritonitis - Management per Surgery - ID following - Receiving TPN - Continue cefepime, flagyl (2) Acute respiratory failure with hypoxia Code(s): J96.01 - ACUTE RESPIRATORY FAILURE WITH HYPOXIA Comment: - Improving, but remains on 2L - Secondary to pneumonia and volume overload caused by decreased albumin - Plan as above; no indication for steroids at this time (3) Septic shock Code(s): A41.9 - SEPSIS, UNSPECIFIED ORGANISM; R65.21 - SEVERE SEPSIS WITH SEPTIC SHOCK Comment: - Resolved - Secondary to peritonitis and pneumonia - Required ICU stay and pressors (4) Colon cancer Comment: - Oncology following - S/p sigmoid colectomy and colostomy (5) Iron deficiency anemia Code(s): D50.9 - IRON DEFICIENCY ANEMIA, UNSPECIFIED Comment: - Iron sucrose given yesterday - Previously discussed with pharmacy and regimen is to give iron sucrose 200mg every three weeks (6) Electrolyte abnormality Code(s): E87.8 - OTH DISORDERS OF ELECTROLYTE AND FLUID BALANCE, NEC Comment: - Resolved hypokalemia and hypomagnesemia (7) DVT prophylaxis Code(s): Z29.9 - ENCOUNTER FOR PROPHYLACTIC MEASURES, UNSPECIFIED Comment: - Heparin SQ (8) Full code status Code(s): Z78.9 - OTHER SPECIFIED HEALTH STATUS Comment: Status and Disposition: Dispo per Surgery. Thank you for this consultation. Hospital Medicine will sign off at this time as she is also being followed by ID and Oncology. This care was discussed with Dr. Guillen. Do not hesitate to call with any additional questions or concerns. Attending: Marcella Wade
[2019-02-13] MEDS: TPN* 24 HR with Dextrose 50% Water* 500 ML, Amino Acid Infusion 10%* 850 ML, Sterile Wa... CENTR SCH ×13 (17:22)
[2019-02-14] MEDS: Cefepime 1 GM in Dextrose(*) 1 GM/50 ML BAG IV SCH ×2 (01:23→14:04)
[2019-02-14] MEDS: HYDROmorphone INJ1* 1 MG/ML SYRINGE IV SLOW PU PRN ×5 (03:31→20:49)
[2019-02-14] MEDS: Ketorolac INJ* 30 MG/ML 1 ML VIAL IV PUSH PRN ×3 (03:39→18:14)
[2019-02-14 05:24] LABS: Hematocrit 23 % (35-47); Hemoglobin 7.2 g/dL (12.0-16.0); Mean Corpuscular HGB Conc 32 g/dL (31-36); Mean Corpuscular Hemoglobin 27 pg (27-31); Mean Corpuscular Volume 84 fL (80-97); Mean Platelet Volume 8.5 fL (7.4-10.4); Platelet Count 462 10^3/uL (150-450); Red Blood Count 2.69 10^6 /uL (3.70-4.87); Red Cell Distribution Width 16 % (10-15); White Blood Count 16.2 10^3/uL (3.5-10.8)
[2019-02-14 05:38] LABS: Blood Urea Nitrogen 23 mg/dL (6-24); CO2 Carbon Dioxide 24 mmol/L (22-32); Calcium 7.9 mg/dL (8.6-10.3); EGFR African American 271.9 (>60); EGFR Non-African American 224.7 (>60); Glucose 92 mg/dL (70-100); Potassium 4.2 mmol/L (3.5-5.0); Sodium 140 mmol/L (135-145)
[2019-02-14 06:00] LABS: Anion Gap 2 mmol/L (2-11); Chloride 114 mmol/L (101-111)
[2019-02-14 07:33] LABS: ABS Basophils 0.1 10^3/ul (0-0.2); ABS Eosinophils 0.3 10^3/ul (0-0.6); ABS Lymphocytes 0.7 10^3/ul (1.0-4.8); ABS Monocytes 1.4 10^3/ul (0-0.8); ABS Neutrophils 13.7 10^3/ul (1.5-7.7); Eosinophil % 1.9 %; Lymphocyte % 4.6 %
[2019-02-14] MEDS: Heparin VIAL(*) 5000 UNITS/ML VIAL (FIVE THOUSAND) SUBCUT SCH ×2 (10:05→21:06)
[2019-02-14] MEDS: Famotidine IV* 10 MG/ML 2 ML (20 mg) IV SLOW PU SCH (10:05)
[2019-02-14] MEDS: metroNIDAZOLE IV 500 MG/100ML* 500 MG/100 ML BAG IVPB SCH ×2 (10:05→21:02)
--- NOTE | 2019-02-14 11:14 | PN ---
Progress Note - Progress Note Date of Service: 02/14/19 SOAP: Subjective: CC: peritonitis HPI: 63 year old woman with peritonitis s/p washout ; feels bowels moving around more, +flatus in ostomy bag. No nausea or abd pain. No fever or rash. Objective: Vital Signs Temp 36.6 C 02/14/19 07:50 Pulse 98 02/14/19 07:50 Resp 18 02/14/19 08:00 BP 128/59 02/14/19 07:50 Pulse Ox 96 02/14/19 08:00 Intake & Output 02/13/19 02/14/19 02/14/19 18:59 06:59 18:59 Intake Total 1946 400 Output Total 1127 530 150 Balance 819 -130 -150 Intake: IV Fluids 1841 TPN 1841 IVPB 105 ABX - FLAGYL 105 Oral 0 400 Output: KATIE #1 2 30 Urine 1125 500 150 Other: # Bowel Movements 0 Gen:awake, no distress HEENT: no thrush Heart:RRR no murmur Lungs:CTA BL Abd:ostomy bag w air, midline incision intact no erythema, non tender Skin: no rash Laboratory Results - last 24 hr 02/13/19 02/14/19 02/14/19 06:20 05:07 05:07 WBC 17.6 H 16.2 H RBC 2.75 L 2.69 L Hgb 7.5 L 7.2 L Hct 23 L 23 L MCV 85 84 MCH 27 27 MCHC 32 32 RDW 16 H 16 H Plt Count 360 462 H D MPV 9.4 8.5 Neut % (Auto) 86.1 84.4 Lymph % (Auto) 4.6 4.6 Hardy % (Auto) 7.6 8.8 Eos % (Auto) 1.4 1.9 Baso % (Auto) 0.3 0.3 Absolute Neuts (auto) 15.1 H 13.7 H Absolute Lymphs (auto) 0.8 L 0.7 L Absolute Monos (auto) 1.3 H 1.4 H Absolute Eos (auto) 0.2 0.3 Absolute Basos (auto) 0.1 0.1 Absolute Nucleated RBC 0.0 0.0 Immature Gran % 6.0 Neutrophils % 82.0 Band Neutrophils % 5.0 Lymphocytes % 5.0 Monocytes % 5.0 Eosinophils % 2.0 Metamyelocytes % 1.0 Nucleated RBC % 0.1 0.0 Normal RBC Morphology Not Reportable Polychromasia 1+ Anisocytosis 1+ Sodium 140 Potassium 4.2 Chloride 114 H Carbon Dioxide 24 Anion Gap 2 BUN 23 Creatinine < 0.30 L Est GFR ( Amer) 271.9 Est GFR (Non-Af Amer) 224.7 BUN/Creatinine Ratio 76.0 H Glucose 92 Calcium 7.9 L Assessment: 1. peritonitis, polymicrobial; improving 2. leukocytosis, stable 3. colonadenocarcinoma, liver metastases 4. anemia Plan: 1. continue cefepime 1 gm IV twice daily, flagyl 500 mg IV twice daily. Day 5/ 10
--- NOTE | 2019-02-14 12:28 | PN ---
Progress Note - Progress Note Date of Service: 02/14/19 Note: S: POD #7. On cefipime and flagyl. States she feels "great". Tired at the same time. She is walking some. Feels gas moving. No N/V. Wants to eat. Denies SOB. O: Vital Signs - 8 hr 02/14/19 02/14/19 02/14/19 05:11 07:33 07:50 Temperature 98 F Pulse Rate 98 Respiratory 18 22 16 Rate Blood Pressure 128/59 (mmHg) O2 Sat by Pulse 96 Oximetry 02/14/19 02/14/19 02/14/19 08:00 11:14 11:35 Temperature 98.2 F Pulse Rate 94 Respiratory 18 16 18 Rate Blood Pressure 141/75 (mmHg) O2 Sat by Pulse 96 96 Oximetry Intake and Output Last 24 Hours 02/12/19 02/13/19 02/14/19 02/15/19 06:59 06:59 06:59 06:59 Intake Total 3676 1934 2346 120 Output Total 3145 954 9223 150 Balance 2116 1467 689 -30 Weight 115 lb 7 oz 125 lb 11.2 oz Intake: IV Fluids 2055 1840 20 NS (0.9%) 300 20 TPN 1756 1841 IVPB 420 110 105 100 ABX - CEFEPIME 55 ABX - FLAGYL 110 105 100 Abx 55 Mg+ 50 Potassium Phosphate 260 Medicated IV 1824 TPN 1824 Oral 1200 0 400 Output: KATIE #1 10 17 32 Urine 6584 867 7071 150 Other: # Bowel Movements 0 0 0 Gen: sitting up in chair; appears bright, comfortable Heart: reg w/ occ irreg beat Lungs: clear to bases Abd: incisions ok (dull erythema around midline?) w/ only mild diffuse tenderness. Flatus in bag; BS more active. Extr: diffuse edema Labs: Laboratory Tests 02/14/19 02/14/19 05:07 05:07 WBC 16.2 H Hgb 7.2 L Potassium 4.2 A: s/p sigmoid colectomy for adeno ca, w/ return to OR for takedown of anastomosis (for leak); end-colostomy; improving P: spoke w/ Dr. Guillen. Cont abx, TPN; sips of clears. Increase ambulation. Labs and CT A&P in a.m. 6/14, though possibly cancel if cont sig improvement.
[2019-02-14] MEDS: TPN* 24 HR with Dextrose 50% Water* 500 ML, Amino Acid Infusion 10%* 850 ML, Sterile Wa... CENTR SCH ×13 (17:14)
[2019-02-15] MEDS: Ketorolac INJ* 30 MG/ML 1 ML VIAL IV PUSH PRN ×3 (00:58→13:36)
[2019-02-15] MEDS: Cefepime 1 GM in Dextrose(*) 1 GM/50 ML BAG IV SCH ×2 (01:05→13:43)
[2019-02-15] MEDS: HYDROmorphone INJ1* 1 MG/ML SYRINGE IV SLOW PU PRN ×4 (02:30→20:30)
[2019-02-15 07:14] LABS: ALT 14 U/L (7-52); AST 17 U/L (13-39); Albumin 2.1 g/dL (3.2-5.2); Albumin/Globulin Ratio 0.7 (1-3); Alkaline Phosphatase 95 U/L (34-104); Blood Urea Nitrogen 23 mg/dL (6-24); CO2 Carbon Dioxide 24 mmol/L (22-32); Calcium 8.1 mg/dL (8.6-10.3); EGFR African American 271.9 (>60); EGFR Non-African American 224.7 (>60); Glucose 101 mg/dL (70-100); Magnesium 1.9 mg/dL (1.9-2.7); Phosphorus 3.1 mg/dL (2.5-5.0); Potassium 4.1 mmol/L (3.5-5.0); Sodium 140 mmol/L (135-145); Total Protein 5.1 g/dL (6.4-8.9); Triglycerides 60 mg/dL
[2019-02-15 07:22] LABS: Anion Gap 3 mmol/L (2-11); Chloride 113 mmol/L (101-111)
[2019-02-15 07:53] LABS: Hematocrit 24 % (35-47); Hemoglobin 7.8 g/dL (12.0-16.0); Mean Corpuscular HGB Conc 33 g/dL (31-36); Mean Corpuscular Hemoglobin 28 pg (27-31); Mean Corpuscular Volume 85 fL (80-97); Mean Platelet Volume 7.9 fL (7.4-10.4); Platelet Count 626 10^3/uL (150-450); Red Blood Count 2.78 10^6 /uL (3.70-4.87); Red Cell Distribution Width 16 % (10-15); White Blood Count 17.9 10^3/uL (3.5-10.8)
[2019-02-15] MEDS: Famotidine IV* 10 MG/ML 2 ML (20 mg) IV SLOW PU SCH (09:46)
[2019-02-15] MEDS: Heparin VIAL(*) 5000 UNITS/ML VIAL (FIVE THOUSAND) SUBCUT SCH ×2 (09:46→20:31)
[2019-02-15] MEDS: metroNIDAZOLE IV 500 MG/100ML* 500 MG/100 ML BAG IVPB SCH ×2 (09:46→20:32)
[2019-02-15 10:00] LABS: ABS Eosinophils 0.3 10^3/ul (0-0.6); ABS Lymphocytes 0.8 10^3/ul (1.0-4.8); ABS Monocytes 1.2 10^3/ul (0-0.8); ABS Neutrophils 15.6 10^3/ul (1.5-7.7); Eosinophil % 1.5 %; Lymphocyte % 4.5 %; Nucleated Red Blood Cells % 0.2
[2019-02-15] MEDS ORDERED: Iodixanol* (CONTRAST) 320 MG/ML 100 ML SDV IV ONE (11:35)
--- NOTE | 2019-02-15 11:46 | PN ---
Progress Note - Progress Note Date of Service: 02/15/19 SOAP: Subjective:pod#8;increased abd pain after drinking CT contrast;is hungry [] Objective: Vital Signs Temp 97.8 F 02/15/19 11:28 Pulse 92 02/15/19 11:28 Resp 16 02/15/19 11:28 BP 131/69 02/15/19 11:28 Pulse Ox 96 02/15/19 11:28 Intake & Output 02/14/19 02/15/19 02/15/19 18:59 06:59 18:59 Intake Total 2182 950 Output Total 605 810 300 Balance 1577 140 -300 Weight 120 lb 6.4 oz 121 lb Intake: IV Fluids 1827 NS (0.9%) 40 TPN 1787 IVPB 155 50 ABX - CEFEPIME 55 50 ABX - FLAGYL 100 Oral 200 900 Output: KATIE #1 5 15 Urine 600 700 300 Colostomy 95 Laboratory Last Values WBC 17.9 10^3/uL (3.5-10.8) H 02/15/19 07:40 RBC 2.78 10^6 /uL (3.70-4.87) L 02/15/19 07:40 Hgb 7.8 g/dL (12.0-16.0) L 02/15/19 07:40 Hct 24 % (35-47) L 02/15/19 07:40 MCV 85 fL (80-97) 02/15/19 07:40 MCH 28 pg (27-31) 02/15/19 07:40 MCHC 33 g/dL (31-36) 02/15/19 07:40 RDW 16 % (10-15) H 02/15/19 07:40 Plt Count 626 10^3/uL (150-450) H D 02/15/19 07:40 MPV 7.9 fL (7.4-10.4) 02/15/19 07:40 Neut % (Auto) 87.0 % 02/15/19 07:40 Lymph % (Auto) 4.5 % 02/15/19 07:40 [place] % (Auto) 6.7 % 02/15/19 07:40 Eos % (Auto) 1.5 % 02/15/19 07:40 Baso % (Auto) 0.3 % 02/15/19 07:40 Absolute Neuts (auto) 15.6 10^3/ul (1.5-7.7) H 02/15/19 07:40 Absolute Lymphs (auto) 0.8 10^3/ul (1.0-4.8) L 02/15/19 07:40 Absolute Monos (auto) 1.2 10^3/ul (0-0.8) H 02/15/19 07:40 Absolute Eos (auto) 0.3 10^3/ul (0-0.6) 02/15/19 07:40 Absolute Basos (auto) 0.0 10^3/ul (0-0.2) 02/15/19 07:40 Absolute Nucleated RBC 0.0 10^3/ul 02/15/19 07:40 Immature Gran % 6.0 % (0-9) 02/13/19 06:20 Neutrophils % 82.0 % 02/13/19 06:20 Band Neutrophils % 5.0 % (0-8) 02/13/19 06:20 Lymphocytes % 5.0 % 02/13/19 06:20 Monocytes % 5.0 % 02/13/19 06:20 Eosinophils % 2.0 % 02/13/19 06:20 Basophils % 0.0 % 02/08/19 00:05 Metamyelocytes % 1.0 % (0-2) 02/13/19 06:20 Myelocytes % 3.0 % (0-1) H 02/08/19 00:05 Nucleated RBC % 0.2 02/15/19 07:40 Abs Neuts (Manual) 10.6 10^3/ul (1.5-7.7) H 02/08/19 05:38 Abs Lymphs (Manual) 0.8 10^3/ul (1.0-4.8) L 02/08/19 05:38 Abs Monocytes (Manual) 0.6 10^3/ul (0-0.8) 02/08/19 05:38 Absolute Eos (Manual) 0.5 10^3/ul (0-0.6) 02/08/19 05:38 Abs Basophils (Manual) 0.0 10^3/ul (0-0.2) 02/08/19 05:38 Normal RBC Morphology Not Reportable 02/13/19 06:20 Polychromasia 1+ 02/13/19 06:20 Anisocytosis 1+ 02/13/19 06:20 Alvarez Cells 1+ 02/08/19 05:38 Hem Pathologist Commnt 02/13/19 06:20 INR (Anticoag Therapy) 1.64 (0.82-1.09) H 02/08/19 08:34 APTT 43.1 seconds (26.0-38.0) H 02/08/19 08:34 Patient Temperature Not Reportable 02/08/19 08:05 ABG pH 7.38 (7.35-7.45) 02/08/19 08:05 ABG pH (Temp Correct) Not Reportable 02/08/19 08:05 ABG pCO2 34 mmHg (35-45) L 02/08/19 08:05 ABG pCO2 (Temp Corrct Not Reportable 02/08/19 08:05 ABG pO2 76 mmHg (80-100) L 02/08/19 08:05 ABG pO2 (Temp Correct Not Reportable 02/08/19 08:05 ABG HCO3 21.6 mmol/L (19-31) 02/08/19 08:05 ABG O2 Saturation 96.8 % (94.0-98.0) 02/08/19 08:05 ABG Base Excess -4.2 mmol/L (-2.0-2.0) L 02/08/19 08:05 Respiration Rate Not Reportable 02/08/19 08:05 O2 Delivery Device vent 02/08/19 01:10 Ventilator Type Not Reportable 02/08/19 08:05 Vent Mode cpap 02/08/19 08:05 FiO2 35 02/08/19 08:05 Inspiratory Time Not Reportable 02/08/19 08:05 PEEP 5 02/08/19 08:05 Pressure Support 5 02/08/19 08:05 Pressure Control Not Reportable 02/08/19 08:05 EPAP Not Reportable 02/08/19 08:05 IPAP Not Reportable 02/08/19 08:05 BiPAP Not Reportable 02/08/19 08:05 Sodium 140 mmol/L (135-145) 02/15/19 06:40 Potassium 4.1 mmol/L (3.5-5.0) 02/15/19 06:40 Chloride 113 mmol/L (101-111) H 02/15/19 06:40 Carbon Dioxide 24 mmol/L (22-32) 02/15/19 06:40 Anion Gap 3 mmol/L (2-11) 02/15/19 06:40 BUN 23 mg/dL (6-24) 02/15/19 06:40 Creatinine < 0.30 mg/dL (0.51-0.95) L 02/15/19 06:40 Est GFR ( Amer) 271.9 (>60) 02/15/19 06:40 Est GFR (Non-Af Amer) 224.7 (>60) 02/15/19 06:40 BUN/Creatinine Ratio 76.0 (8-20) H 02/15/19 06:40 Glucose 101 mg/dL (70-100) H 02/15/19 06:40 POC Glucose (mg/dL) 138 mg/dL (70-100) H 02/12/19 09:17 Lactic Acid 1.8 mmol/L (0.5-2.0) 02/07/19 16:36 Calcium 8.1 mg/dL (8.6-10.3) L 02/15/19 06:40 Phosphorus 3.1 mg/dL (2.5-5.0) 02/15/19 06:40 Magnesium 1.9 mg/dL (1.9-2.7) 02/15/19 06:40 Iron < 17 ug/dL (50-212) L 02/12/19 06:15 TIBC 204 mcg/dL (250-450) L D 02/12/19 06:15 % Saturation 8 % (15-55) L 02/12/19 06:15 Unsat Iron Binding < 189 ug/dL 02/12/19 06:15 Transferrin 146 mg/dL (203-362) L 02/12/19 06:15 Ferritin 195.3 ng/mL (11-307) 02/12/19 06:15 Total Bilirubin 0.40 mg/dL (0.2-1.0) 02/15/19 06:40 AST 17 U/L (13-39) 02/15/19 06:40 ALT 14 U/L (7-52) 02/15/19 06:40 Alkaline Phosphatase 95 U/L (34-104) 02/15/19 06:40 Troponin I 0.01 ng/mL (<0.04) 02/07/19 14:37 C-Reactive Protein 197.44 mg/L (<8.01) H 02/07/19 14:37 Total Protein 5.1 g/dL (6.4-8.9) L 02/15/19 06:40 Albumin 2.1 g/dL (3.2-5.2) L 02/15/19 06:40 Globulin 3.0 g/dL (2-4) 02/15/19 06:40 Albumin/Globulin Ratio 0.7 (1-3) L 02/15/19 06:40 Prealbumin < 3 mg/dL (18-38) L 02/08/19 05:38 Triglycerides 60 mg/dL 02/15/19 06:40 Cholesterol 30 mg/dL 02/08/19 05:38 Urine Color Petra 02/07/19 14:26 Urine Appearance Cloudy 02/07/19 14:26 Urine pH 6.0 (5-9) 02/07/19 14:26 Ur Specific [place] 1.015 (1.010-1.030) 02/07/19 14:26 Urine Protein Negative (Negative) 02/07/19 14:26 Urine Ketones Negative (Negative) 02/07/19 14:26 Urine Blood Negative (Negative) 02/07/19 14:26 Urine Nitrate Negative (Negative) 02/07/19 14:26 Urine Bilirubin Negative (Negative) 02/07/19 14:26 Urine Urobilinogen Negative (Negative) 02/07/19 14:26 Ur Leukocyte Esterase Negative (Negative) 02/07/19 14:26 Urine WBC (Auto) Trace(0-5/hpf) (Absent) 02/04/19 12:00 Urine RBC (Auto) 1+(3-5/hpf) (Absent) A 02/04/19 12:00 Ur Squamous Epith Cells Present (Absent) A 02/04/19 12:00 Urine Bacteria Absent (Absent) 02/04/19 12:00 Hyaline Casts Present (Absent) A 02/04/19 12:00 Urine Glucose Negative (Negative) 02/07/19 14:26 Vancomycin Trough 2.3 mcg/mL 02/11/19 12:34 lungs:clear bilat;heart:RRR;abd:midline incision intact with ancelmo; erythematous,tender,possible collection;ostomy with scant clear fluid,some gas in bag;stoma pink;ext:no edema,nontender [] Assessment:pod#8 s/p return to OR for takedown anastamosis(for leak);end colostomy;wbc elevated,abd incision erythema;awaiting CT a/p;TPN labs reviewed with pharmacist [] Plan:above findings discussed with Dr Guillen;will likely need to have abd incision opened and drained;await CT results;continue TPN []
--- NOTE | 2019-02-15 13:03 | PN ---
Progress Note - Progress Note Date of Service: 02/15/19 Note: addendum 02/15/19 1200 after informing the patient and using sterile technique; I removed ancelmo from the midline incision and opened the distal aspect to allow drainage of moderate amt of purulent exudate,wound c&s taken;wound irrigated with NS and packed with 1/2"Iodoform and covered with sterile 4x4s; proximal aspect of incision supported with 1/2"steristrips;pt tolerated well.Guadalupe,RADHA
--- NOTE | 2019-02-15 14:58 | PN ---
Progress Note - Progress Note Date of Service: 02/15/19 Note: passing flatus, now liquid stool in ostomy bag wound opened further, packed with gauze-saline soaked advance to full iquid diet ct scan viewed, cont same
[2019-02-15] MEDS: TPN* 24 HR with Dextrose 50% Water* 500 ML, Amino Acid Infusion 10%* 850 ML, Sterile Wa... CENTR SCH ×13 (18:20)
[2019-02-15 19:03] LABS: Albumin 2.1 g/dL (3.2-5.2); Albumin/Globulin Ratio 0.8 (1-3); EGFR African American 271.9 (>60); EGFR Non-African American 224.7 (>60); Globulin 2.8 g/dL (2-4); Magnesium 1.9 mg/dL (1.9-2.7); Phosphorus 3.2 mg/dL (2.5-5.0); Potassium 4.4 mmol/L (3.5-5.0); Total Bilirubin 0.4 mg/dL (0.2-1.0); Total Protein 4.9 g/dL (6.4-8.9)
[2019-02-16] MEDS: HYDROmorphone INJ1* 1 MG/ML SYRINGE IV SLOW PU PRN ×6 (00:28→21:17)
[2019-02-16] MEDS: Cefepime 1 GM in Dextrose(*) 1 GM/50 ML BAG IV SCH ×2 (00:47→12:55)
[2019-02-16 05:27] LABS: Hematocrit 22 % (35-47); Hemoglobin 7.4 g/dL (12.0-16.0); Mean Corpuscular HGB Conc 33 g/dL (31-36); Mean Corpuscular Hemoglobin 28 pg (27-31); Mean Corpuscular Volume 85 fL (80-97); Mean Platelet Volume 7.7 fL (7.4-10.4); Platelet Count 678 10^3/uL (150-450); Red Blood Count 2.63 10^6 /uL (3.70-4.87); Red Cell Distribution Width 17 % (10-15)
[2019-02-16 05:43] LABS: BUN/Creatinine Ratio 68.8 (8-20); Calcium 7.8 mg/dL (8.6-10.3); EGFR African American 252.4 (>60); EGFR Non-African American 208.6 (>60)
[2019-02-16 06:03] LABS: ABS Basophils 0.1 10^3/ul (0-0.2); ABS Eosinophils 0.2 10^3/ul (0-0.6); ABS Lymphocytes 0.6 10^3/ul (1.0-4.8); ABS Monocytes 1.2 10^3/ul (0-0.8); ABS Neutrophils 14.5 10^3/ul (1.5-7.7); Eosinophil % 1.1 %; Lymphocyte % 3.8 %
[2019-02-16] MEDS: Heparin VIAL(*) 5000 UNITS/ML VIAL (FIVE THOUSAND) SUBCUT SCH ×2 (08:37→21:24)
[2019-02-16] MEDS: Famotidine IV* 10 MG/ML 2 ML (20 mg) IV SLOW PU SCH (08:37)
--- NOTE | 2019-02-16 08:41 | PN ---
Progress Note - Progress Note Date of Service: 02/16/19 SOAP: Subjective: Pain controlled with Dilaudid. Nausea no emesis. Ostomy fct. Objective: Vital Signs Temp 98.5 F 02/16/19 07:12 Pulse 96 02/16/19 07:12 Resp 20 02/16/19 07:12 BP 147/62 02/16/19 07:12 Pulse Ox 99 02/16/19 07:12 Gen: appears cachectic; NAD; mild SOB Lungs: clear on L; decr BS on R Abd: ostomy with stool in bag; ND; wound clean; scant granulation; no erythema; KATIE in place. Intake & Output 02/15/19 02/16/19 02/16/19 18:59 06:59 18:59 Intake Total 1853 600 Output Total 1002 805 200 Balance 851 -205 -200 Intake: IV Fluids 1798 NS (0.9%) 10 TPN 1788 IVPB 55 ABX - FLAGYL 55 Oral 600 Output: KATIE #1 2 5 Urine 1000 650 200 Colostomy 150 Other: Date of Last Bowel 02/16/2019 Movement # Bowel Movements 0 Active Medications Generic Name Dose Route Start Last Admin Trade Name Freq PRN Reason Stop Dose Admin Albuterol 2.5 mg 02/11/19 18:49 Ventolin 2.5 Mg/3 Ml Neb.Dinora* INH Q4H PRN SOB/WHEEZING Dextrose 12.5 gm 02/09/19 01:17 D50w Syringe 50 Ml* IV PUSH .FOR FS < 60 - SS PRN FS < 60 Famotidine 20 mg 02/08/19 09:00 02/15/19 09:46 Pepcid Iv* IV SLOW PU 20 mg DAILY [facility] Administration Heparin Sodium (Porcine) 5,000 units 02/08/19 09:00 02/15/19 20:31 Heparin Vial(*) SUBCUT 5,000 units Q12HR [facility] Administration Heparin Sodium (Porcine) 1 - 3 ml 02/10/19 21:00 02/16/19 05:36 Heparin Flush Picc/Ml/Cvc(*) FLUSH 1 ml 0600,1800 [facility] Administration Protocol Hydralazine HCl 5 mg 02/09/19 10:55 02/09/19 11:40 Apresoline Iv* IV SLOW PU 5 mg Q6H PRN Administration SYSTOLIC BP GREATER THAN: Hydromorphone HCl 1 mg 02/13/19 14:07 02/16/19 04:28 Dilaudid Inj1s* IV SLOW PU 1 mg Q4H PRN Administration PAIN Cefepime HCl 1 gm in 50 mls @ 100 mls/hr 02/08/19 01:00 02/16/19 00:47 Maxipime 1 Gm In Dextrose Duplex (*) IV 100 mls/hr Q12H [facility] Administration Metronidazole/Sodium Chloride 500 mg in 100 mls @ 100 mls/hr 02/12/19 21:00 02/15/19 20:32 Flagyl 500 Mg Ivpb* IVPB 100 mls/hr Q12HR [facility] Administration Dextrose 500 ml/ Amino Acids 1,850.3858 mls @ 77.099 mls/hr 02/14/19 17:00 18:20 850 ml/ Sterile Water 150 ml/ CENTR 77.099 mls/hr Fat Emulsion Intravenous 250 1700 [facility]IS[facility] Administration ml/ Sodium Chloride 100 meq/ Potassium Chloride 50 meq/ Potassium Phosphate 10 mmole/ Protocol Calcium Gluconate 15 meq/ Magnesium Sulfate 15 meq/ Multivitamins 10 ml/ Trace Metals 1 ml/ Phytonadione 0.2 mg/ Nutrition (Parenteral) Ketorolac Tromethamine 30 mg 02/13/19 14:07 02/15/19 13:36 Toradol Inj* IV PUSH 30 mg Q6H PRN Administration PAIN Ondansetron HCl 4 mg 01/31/19 10:01 02/03/19 20:42 Zofran Inj* IV 4 mg Q6H PRN Administration NAUSEA Laboratory Results - last 24 hr 02/15/19 02/15/19 02/16/19 07:40 15:35 05:20 WBC RBC Hgb Hct MCV MCH MCHC RDW Plt Count MPV Neut % (Auto) 87.0 Lymph % (Auto) 4.5 [place] % (Auto) 6.7 Eos % (Auto) 1.5 Baso % (Auto) 0.3 Absolute Neuts (auto) 15.6 H Absolute Lymphs (auto) 0.8 L Absolute Monos (auto) 1.2 H Absolute Eos (auto) 0.3 Absolute Basos (auto) 0.0 Absolute Nucleated RBC 0.0 Nucleated RBC % 0.2 Sodium 139 139 Potassium 4.4 4.0 Chloride 113 H 113 H Carbon Dioxide 21 L 24 Anion Gap 5 2 BUN 24 22 Creatinine 0.30 L 0.32 L Est GFR ( Amer) 271.9 252.4 Est GFR (Non-Af Amer) 224.7 208.6 BUN/Creatinine Ratio 80.0 H 68.8 H Glucose 93 115 H Calcium 8.0 L 7.8 L Phosphorus 3.2 Magnesium 1.9 Total Bilirubin 0.40 AST 17 ALT 14 Alkaline Phosphatase 92 Total Protein 4.9 L Albumin 2.1 L Globulin 2.8 Albumin/Globulin Ratio 0.8 L Prealbumin 10 L Triglycerides 59 Cholesterol 85 02/16/19 05:20 WBC 16.0 H RBC 2.63 L Hgb 7.4 L Hct 22 L MCV 85 MCH 28 MCHC 33 RDW 17 H Plt Count 678 H D MPV 7.7 Neut % (Auto) 87.7 Lymph % (Auto) 3.8 [place] % (Auto) 7.0 Eos % (Auto) 1.1 Baso % (Auto) 0.4 Absolute Neuts (auto) 14.5 H Absolute Lymphs (auto) 0.6 L Absolute Monos (auto) 1.2 H Absolute Eos (auto) 0.2 Absolute Basos (auto) 0.1 Absolute Nucleated RBC 0.0 Nucleated RBC % 0.0 Sodium Potassium Chloride Carbon Dioxide Anion Gap BUN Creatinine Est GFR ( Amer) Est GFR (Non-Af Amer) BUN/Creatinine Ratio Glucose Calcium Phosphorus Magnesium Total Bilirubin AST ALT Alkaline Phosphatase Total Protein Albumin Globulin Albumin/Globulin Ratio Prealbumin Triglycerides Cholesterol Microbiology 02/15/19 12:35 Gram Stain - Final Abdomen GPC and GNB Assessment: POD#9 s/p return to OR for takedown anastamosis(for leak);end colostomy. Wound infection, now treated. Severe protein calorie malnutrition based on anasarca and poor energy intake due to prolonged NPO status. Plan: Cont TPN and po intake. Cont abx and f/u wound cx. Local wound care. Cont KATEI.
[2019-02-16] MEDS: metroNIDAZOLE IV 500 MG/100ML* 500 MG/100 ML BAG IVPB SCH ×2 (08:47→21:15)
[2019-02-16] MEDS ORDERED: Alteplase (CATHFLO)* 2 MG VIAL IV ONE (10:00)
[2019-02-16] MEDS: TPN* 24 HR with Dextrose 50% Water* 500 ML, Amino Acid Infusion 10%* 850 ML, Sterile Wa... CENTR SCH ×13 (17:05)
[2019-02-17] MEDS: HYDROmorphone INJ1* 1 MG/ML SYRINGE IV SLOW PU PRN ×6 (01:22→21:24)
[2019-02-17] MEDS: Cefepime 1 GM in Dextrose(*) 1 GM/50 ML BAG IV SCH ×2 (01:25→13:22)
[2019-02-17 06:01] LABS: Anion Gap 3 mmol/L (2-11); Blood Urea Nitrogen 19 mg/dL (6-24); CO2 Carbon Dioxide 24 mmol/L (22-32); Calcium 7.8 mg/dL (8.6-10.3); Chloride 110 mmol/L (101-111); EGFR African American 271.9 (>60); EGFR Non-African American 224.7 (>60); Glucose 112 mg/dL (70-100); Potassium 3.9 mmol/L (3.5-5.0); Sodium 137 mmol/L (135-145)
[2019-02-17] MEDS: Heparin VIAL(*) 5000 UNITS/ML VIAL (FIVE THOUSAND) SUBCUT SCH ×2 (09:18→21:29)
[2019-02-17] MEDS: Famotidine IV* 10 MG/ML 2 ML (20 mg) IV SLOW PU SCH (09:18)
[2019-02-17] MEDS: metroNIDAZOLE IV 500 MG/100ML* 500 MG/100 ML BAG IVPB SCH ×2 (09:19→21:30)
--- NOTE | 2019-02-17 09:57 | PN ---
Progress Note - Progress Note Date of Service: 02/17/19 SOAP: Subjective: Feels a little better today Ambulating to bathroom Tolerating full liquids Objective: Temp Pulse Resp BP Pulse Ox 98.8 F 91 20 127/55 98 02/17/19 07:23 02/17/19 07:23 02/17/19 09:18 02/17/19 07:23 02/17/19 07:23 Intake & Output 02/15/19 02/16/19 02/17/19 02/18/19 06:59 06:59 06:59 06:59 Intake Total 3132 2453 3949 100 Output Total 1415 1807 1532 200 Balance 6522 584 8547 -100 Weight 121 lb Intake: IV Fluids 1827 1798 50 NS (0.9%) 40 10 50 TPN 1787 1788 IVPB 205 55 163 ABX - CEFEPIME 105 58 ABX - FLAGYL 100 55 105 TPN/PPN 2696 Oral 2638 861 3921 100 Output: KATIE #1 20 7 7 Urine 1300 1650 1525 200 Colostomy 95 150 0 Other: Date of Last Bowel 02/16/2019 Movement # Bowel Movements 0 PEX: Comfortable in chair Lungs decreased breath sounds at the bases Abd is soft and slightly distended. Few bowel sounds are present. Ostomy with some thick liquid output. KATIE with small amount of serous fluid in bulb. Incision is open and packed, clean without surrounding redness. Laboratory Results - last 24 hr 02/17/19 05:32 Sodium 137 Potassium 3.9 Chloride 110 Carbon Dioxide 24 Anion Gap 3 BUN 19 Creatinine < 0.30 L Est GFR ( Amer) 271.9 Est GFR (Non-Af Amer) 224.7 BUN/Creatinine Ratio 63.0 H Glucose 112 H Calcium 7.8 L Preliminary wound cultures noted-await sensitivities. Assessment: S/P left colon resection, colon cancer with post-operative anastomotic leak. Return to OR for colostomy, drainage Wound infection Malnutrition Plan: Wound care, KATIE TPN Full liquids IV abx Increase activity Ostomy care
[2019-02-17] MEDS ORDERED: Potassium Chloride* LIQUID 20 MEQ/15 ML UDC PO ONE (10:52)
[2019-02-17 11:15] LABS: Magnesium 1.8 mg/dL (1.9-2.7)
[2019-02-17] MEDS ORDERED: Magnesium Sulfate 2 GM IV* 2 GM/50 ML BAG IVPB ONE (15:54)
[2019-02-17] MEDS: TPN* 24 HR with Dextrose 50% Water* 500 ML, Amino Acid Infusion 10%* 850 ML, Sterile Wa... CENTR SCH ×13 (16:32)
[2019-02-18] MEDS: Cefepime 1 GM in Dextrose(*) 1 GM/50 ML BAG IV SCH ×2 (01:27→12:51)
[2019-02-18] MEDS: HYDROmorphone INJ1* 1 MG/ML SYRINGE IV SLOW PU PRN ×6 (01:27→22:18)
[2019-02-18 05:10] LABS: Hematocrit 23 % (35-47); Hemoglobin 7.5 g/dL (12.0-16.0); Mean Corpuscular HGB Conc 33 g/dL (31-36); Mean Corpuscular Hemoglobin 28 pg (27-31); Mean Corpuscular Volume 85 fL (80-97); Mean Platelet Volume 7.5 fL (7.4-10.4); Platelet Count 739 10^3/uL (150-450); Red Blood Count 2.68 10^6 /uL (3.70-4.87); Red Cell Distribution Width 18 % (10-15); White Blood Count 18.7 10^3/uL (3.5-10.8)
[2019-02-18 07:44] LABS: ABS Basophils 0.2 10^3/ul (0-0.2); ABS Eosinophils 0.2 10^3/ul (0-0.6); ABS Lymphocytes 0.8 10^3/ul (1.0-4.8); ABS Monocytes 1.1 10^3/ul (0-0.8); ABS Neutrophils 16.5 10^3/ul (1.5-7.7); Eosinophil % 0.9 %; Lymphocyte % 4.1 %; Nucleated Red Blood Cells % 0.1
[2019-02-18 07:48] LABS: Polychromasia 1+
--- NOTE | 2019-02-18 09:02 | PN ---
Hospitalist Progress Note Date of Service: 02/18/19 Labs reviewed and spoke with pharmacy. I would recommend increasing mag from 15 meq to 20 meq as serum mag has been consistently low. No need to increase calcium as it corrects to normal range. Will not make any further adjustments to TPN going forward unless she continues to have episodes of SVT. Nelly in pharmacy will change TPN orders and touch base with Dr. Guillen for further guidance. Thank you for this consultation. We will continue to follow distantly to ensure resolution of arrhythmias.
--- NOTE | 2019-02-18 09:05 | PN ---
Progress Note - Progress Note Date of Service: 02/18/19 SOAP: Subjective: []hungry, denies pain, " feel a little better each day" Objective: [] Laboratory Last Values WBC 18.7 10^3/uL (3.5-10.8) H 02/18/19 04:50 RBC 2.68 10^6 /uL (3.70-4.87) L 02/18/19 04:50 Hgb 7.5 g/dL (12.0-16.0) L 02/18/19 04:50 Hct 23 % (35-47) L 02/18/19 04:50 MCV 85 fL (80-97) 02/18/19 04:50 MCH 28 pg (27-31) 02/18/19 04:50 MCHC 33 g/dL (31-36) 02/18/19 04:50 RDW 18 % (10-15) H 02/18/19 04:50 Plt Count 739 10^3/uL (150-450) H D 02/18/19 04:50 MPV 7.5 fL (7.4-10.4) 02/18/19 04:50 Neut % (Auto) 88.2 % 02/18/19 04:50 Lymph % (Auto) 4.1 % 02/18/19 04:50 [place] % (Auto) 5.9 % 02/18/19 04:50 Eos % (Auto) 0.9 % 02/18/19 04:50 Baso % (Auto) 0.9 % 02/18/19 04:50 Absolute Neuts (auto) 16.5 10^3/ul (1.5-7.7) H 02/18/19 04:50 Absolute Lymphs (auto) 0.8 10^3/ul (1.0-4.8) L 02/18/19 04:50 Absolute Monos (auto) 1.1 10^3/ul (0-0.8) H 02/18/19 04:50 Absolute Eos (auto) 0.2 10^3/ul (0-0.6) 02/18/19 04:50 Absolute Basos (auto) 0.2 10^3/ul (0-0.2) 02/18/19 04:50 Absolute Nucleated RBC 0.0 10^3/ul 02/18/19 04:50 Immature Gran % 2.0 % (0-9) 02/18/19 04:50 Neutrophils % 83.0 % 02/18/19 04:50 Band Neutrophils % 2.0 % (0-8) 02/18/19 04:50 Lymphocytes % 11.0 % 02/18/19 04:50 Monocytes % 4.0 % 02/18/19 04:50 Eosinophils % 0.0 % 02/18/19 04:50 Basophils % 0.0 % 02/18/19 04:50 Metamyelocytes % 1.0 % (0-2) 02/13/19 06:20 Myelocytes % 3.0 % (0-1) H 02/08/19 00:05 Nucleated RBC % 0.1 02/18/19 04:50 Abs Neuts (Manual) 10.6 10^3/ul (1.5-7.7) H 02/08/19 05:38 Abs Lymphs (Manual) 0.8 10^3/ul (1.0-4.8) L 02/08/19 05:38 Abs Monocytes (Manual) 0.6 10^3/ul (0-0.8) 02/08/19 05:38 Absolute Eos (Manual) 0.5 10^3/ul (0-0.6) 02/08/19 05:38 Abs Basophils (Manual) 0.0 10^3/ul (0-0.2) 02/08/19 05:38 Normal RBC Morphology Not Reportable 02/18/19 04:50 Polychromasia 1+ 02/18/19 04:50 Hypochromasia 1+ 02/18/19 04:50 Anisocytosis 1+ 02/18/19 04:50 Felicity Cells 1+ 02/08/19 05:38 Hem Pathologist Commnt 02/13/19 06:20 INR (Anticoag Therapy) 1.64 (0.82-1.09) H 02/08/19 08:34 APTT 43.1 seconds (26.0-38.0) H 02/08/19 08:34 Patient Temperature Not Reportable 02/08/19 08:05 ABG pH 7.38 (7.35-7.45) 02/08/19 08:05 ABG pH (Temp Correct) Not Reportable 02/08/19 08:05 ABG pCO2 34 mmHg (35-45) L 02/08/19 08:05 ABG pCO2 (Temp Corrct Not Reportable 02/08/19 08:05 ABG pO2 76 mmHg (80-100) L 02/08/19 08:05 ABG pO2 (Temp Correct Not Reportable 02/08/19 08:05 ABG HCO3 21.6 mmol/L (19-31) 02/08/19 08:05 ABG O2 Saturation 96.8 % (94.0-98.0) 02/08/19 08:05 ABG Base Excess -4.2 mmol/L (-2.0-2.0) L 02/08/19 08:05 Respiration Rate Not Reportable 02/08/19 08:05 O2 Delivery Device vent 02/08/19 01:10 Ventilator Type Not Reportable 02/08/19 08:05 Vent Mode cpap 02/08/19 08:05 FiO2 35 02/08/19 08:05 Inspiratory Time Not Reportable 02/08/19 08:05 PEEP 5 02/08/19 08:05 Pressure Support 5 02/08/19 08:05 Pressure Control Not Reportable 02/08/19 08:05 EPAP Not Reportable 02/08/19 08:05 IPAP Not Reportable 02/08/19 08:05 BiPAP Not Reportable 02/08/19 08:05 Sodium 137 mmol/L (135-145) 02/17/19 05:32 Potassium 3.9 mmol/L (3.5-5.0) 02/17/19 05:32 Chloride 110 mmol/L (101-111) 02/17/19 05:32 Carbon Dioxide 24 mmol/L (22-32) 02/17/19 05:32 Anion Gap 3 mmol/L (2-11) 02/17/19 05:32 BUN 19 mg/dL (6-24) 02/17/19 05:32 Creatinine < 0.30 mg/dL (0.51-0.95) L 02/17/19 05:32 Est GFR ( Amer) 271.9 (>60) 02/17/19 05:32 Est GFR (Non-Af Amer) 224.7 (>60) 02/17/19 05:32 BUN/Creatinine Ratio 63.0 (8-20) H 02/17/19 05:32 Glucose 112 mg/dL (70-100) H 02/17/19 05:32 POC Glucose (mg/dL) 138 mg/dL (70-100) H 02/12/19 09:17 Lactic Acid 1.8 mmol/L (0.5-2.0) 02/07/19 16:36 Calcium 7.8 mg/dL (8.6-10.3) L 02/17/19 05:32 Phosphorus 3.2 mg/dL (2.5-5.0) 02/15/19 15:35 Magnesium 1.8 mg/dL (1.9-2.7) L 02/17/19 05:32 Iron < 17 ug/dL (50-212) L 02/12/19 06:15 TIBC 204 mcg/dL (250-450) L D 02/12/19 06:15 % Saturation 8 % (15-55) L 02/12/19 06:15 Unsat Iron Binding < 189 ug/dL 02/12/19 06:15 Transferrin 146 mg/dL (203-362) L 02/12/19 06:15 Ferritin 195.3 ng/mL (11-307) 02/12/19 06:15 Total Bilirubin 0.40 mg/dL (0.2-1.0) 02/15/19 15:35 AST 17 U/L (13-39) 02/15/19 15:35 ALT 14 U/L (7-52) 02/15/19 15:35 Alkaline Phosphatase 92 U/L (34-104) 02/15/19 15:35 Troponin I 0.01 ng/mL (<0.04) 02/07/19 14:37 C-Reactive Protein 197.44 mg/L (<8.01) H 02/07/19 14:37 Total Protein 4.9 g/dL (6.4-8.9) L 02/15/19 15:35 Albumin 2.1 g/dL (3.2-5.2) L 02/15/19 15:35 Globulin 2.8 g/dL (2-4) 02/15/19 15:35 Albumin/Globulin Ratio 0.8 (1-3) L 02/15/19 15:35 Prealbumin 10 mg/dL (18-38) L 02/15/19 15:35 Triglycerides 59 mg/dL 02/15/19 15:35 Cholesterol 85 mg/dL 02/15/19 15:35 Urine Color Petra 02/07/19 14:26 Urine Appearance Cloudy 02/07/19 14:26 Urine pH 6.0 (5-9) 02/07/19 14:26 Ur Specific [place] 1.015 (1.010-1.030) 02/07/19 14:26 Urine Protein Negative (Negative) 02/07/19 14:26 Urine Ketones Negative (Negative) 02/07/19 14:26 Urine Blood Negative (Negative) 02/07/19 14:26 Urine Nitrate Negative (Negative) 02/07/19 14:26 Urine Bilirubin Negative (Negative) 02/07/19 14:26 Urine Urobilinogen Negative (Negative) 02/07/19 14:26 Ur Leukocyte Esterase Negative (Negative) 02/07/19 14:26 Urine WBC (Auto) Trace(0-5/hpf) (Absent) 02/04/19 12:00 Urine RBC (Auto) 1+(3-5/hpf) (Absent) A 02/04/19 12:00 Ur Squamous Epith Cells Present (Absent) A 02/04/19 12:00 Urine Bacteria Absent (Absent) 02/04/19 12:00 Hyaline Casts Present (Absent) A 02/04/19 12:00 Urine Glucose Negative (Negative) 02/07/19 14:26 Vancomycin Trough 2.3 mcg/mL 02/11/19 12:34 Temp Pulse Resp BP Pulse Ox 99 F 89 20 127/55 100 02/18/19 07:56 02/18/19 07:56 02/18/19 07:59 02/18/19 07:56 02/18/19 07:56 wound open, granulating, stoma functioning well Assessment: []stable, clinically appears to be improving elevated wbc Plan: []regular diet dc central line (wbc) cont abx
[2019-02-18] MEDS: metroNIDAZOLE IV 500 MG/100ML* 500 MG/100 ML BAG IVPB SCH ×2 (09:55→21:47)
[2019-02-18] MEDS: Heparin VIAL(*) 5000 UNITS/ML VIAL (FIVE THOUSAND) SUBCUT SCH ×2 (09:55→21:47)
[2019-02-18] MEDS: Famotidine IV* 10 MG/ML 2 ML (20 mg) IV SLOW PU SCH (09:56)
--- NOTE | 2019-02-18 10:51 | PN ---
Progress Note - Progress Note Date of Service: 02/18/19 SOAP: Subjective: []Feeling better all the time. Pain is controlled and is eating full diet, has output. She has not had fevers. Took long walk yesterday. Still has KATIE drain and central line. Albuterol (Ventolin 2.5 Mg/3 Ml Neb.Dinora*) 2.5 mg INH Q4H PRN PRN Reason: SOB/WHEEZING Dextrose (D50w Syringe 50 Ml*) 12.5 gm IV PUSH .FOR FS < 60 - SS PRN PRN Reason: FS < 60 Famotidine (Pepcid Iv*) 20 mg IV SLOW PU DAILY [facility] Last Admin: 02/18/19 09:56 Dose: 20 mg Heparin Sodium (Porcine) (Heparin Vial(*)) 5,000 units SUBCUT Q12HR [facility] Last Admin: 02/18/19 09:55 Dose: 5,000 units Heparin Sodium (Porcine) (Heparin Flush Picc/Ml/Cvc(*)) 1 - 3 ml FLUSH 0600, 1800 [facility]; Protocol Last Admin: 02/18/19 04:54 Dose: 2 ml Hydralazine HCl (Apresoline Iv*) 5 mg IV SLOW PU Q6H PRN PRN Reason: SYSTOLIC BP GREATER THAN: Last Admin: 02/09/19 11:40 Dose: 5 mg Hydromorphone HCl (Dilaudid Inj1s*) 1 mg IV SLOW PU Q4H PRN PRN Reason: PAIN Last Admin: 02/18/19 09:54 Dose: 1 mg Cefepime HCl (Maxipime 1 Gm In Dextrose Duplex (*)) 1 gm in 50 mls @ 100 mls/ hr IV Q12H [facility] Last Admin: 02/18/19 01:27 Dose: 100 mls/hr Metronidazole/Sodium Chloride (Flagyl 500 Mg Ivpb*) 500 mg in 100 mls @ 100 mls /hr IVPB Q12HR [facility] Last Admin: 02/18/19 09:55 Dose: 100 mls/hr Ketorolac Tromethamine (Toradol Inj*) 30 mg IV PUSH Q6H PRN PRN Reason: PAIN Last Admin: 02/15/19 13:36 Dose: 30 mg Ondansetron HCl (Zofran Inj*) 4 mg IV Q6H PRN PRN Reason: NAUSEA Last Admin: 02/03/19 20:42 Dose: 4 mg Objective: [] Vital Signs Temp Pulse Resp BP Pulse Ox 99 F 89 18 127/55 100 02/18/19 07:56 02/18/19 07:56 02/18/19 09:54 02/18/19 07:56 02/18/19 07:56 HEENT: mucosa moist, no lesions, pale CTA RRR S1S2 +BS and non tender. no output in colostomy at time of exam. drain in and bandage from incision not removed. EXt tr edema neuro AAOx 3 Assessment: []63 year old with know metastatic colon cancer, solitary hepatic lesion and quesion of pulmoanry lesion as well. 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 She is continuing to improve after surgery. Advancing diet and with increased activity. Plan: []1. Advance to regular diet, possible removal of drain and central line. 2. ID. Stable on Cefepime and Falgyl. Duration per ID. 3.Chemotherapy on hold until full recovery, several weeks. 4. Will plan follow up CT scan once improved to evaluate pulmonary and liver disease 5. Encouraged ambulation. 6. Will follow while in hospital. 7. Anemia. IV iron.
[2019-02-18 11:28] LABS: Anion Gap 3 mmol/L (2-11); Blood Urea Nitrogen 16 mg/dL (6-24); CO2 Carbon Dioxide 25 mmol/L (22-32); Calcium 7.9 mg/dL (8.6-10.3); Chloride 107 mmol/L (101-111); EGFR African American 271.9 (>60); EGFR Non-African American 224.7 (>60); Glucose 88 mg/dL (70-100); Magnesium 1.8 mg/dL (1.9-2.7); Potassium 3.8 mmol/L (3.5-5.0); Sodium 135 mmol/L (135-145)
[2019-02-18] MEDS ORDERED: Ferric Gluconate IV* 25 MG in NS 0.9% 50 ML* 50 ML IVPB ONE (12:00)
--- NOTE | 2019-02-18 12:40 | PN ---
Progress Note - Progress Note Date of Service: 02/18/19 SOAP: Subjective: CC: Abdominal infection HPI: Ms. Garcia is a 63 yo female with PMH significant for colon cancer with liver mets s/p sigmoid colectomy, BRENNA, HTN, and HLD; who underwent an exp lap, evacuation of purulent peritonitis, appy, take down of anastomosis, excision of necrotic rectal stump, and end colostomy. Denies fever, chills, shortness of breath, ABD pain, nausea, or vomiting. She reports passing flatus into her ostomy and liquid in the ostomy bag. She is tolerating a few bites of regular food. She is anxious to get home and is hoping for discharge in the next few days. Objective: Vital Signs - 8 hr 02/18/19 02/18/19 02/18/19 05:28 07:56 07:59 Temperature 99 F Pulse Rate 89 Respiratory 18 16 20 Rate Blood Pressure 127/55 (mmHg) O2 Sat by Pulse 100 Oximetry 02/18/19 02/18/19 09:54 11:19 Temperature 98.5 F Pulse Rate 106 Respiratory 18 16 Rate Blood Pressure 111/72 (mmHg) O2 Sat by Pulse 95 Oximetry Physical Exam: General: NAD, sitting up in a chair Neurological: Alert and Oriented x4 HEENT: Moist MM, no thrush Cardiovascular: Heart rate regular, no murmur Respiratory: Lung sounds clear bilateral Abdominal: Bowel sounds present; ABD soft, non tender and non distended Skin: No rash. DSG to ABD clean and dry. Ostomy to the left side of the ABD with pink stoma Laboratory Results - last 24 hr 02/18/19 02/18/19 04:50 10:59 WBC 18.7 H RBC 2.68 L Hgb 7.5 L Hct 23 L MCV 85 MCH 28 MCHC 33 RDW 18 H Plt Count 739 H D MPV 7.5 Neut % (Auto) 88.2 Lymph % (Auto) 4.1 [place] % (Auto) 5.9 Eos % (Auto) 0.9 Baso % (Auto) 0.9 Absolute Neuts (auto) 16.5 H Absolute Lymphs (auto) 0.8 L Absolute Monos (auto) 1.1 H Absolute Eos (auto) 0.2 Absolute Basos (auto) 0.2 Absolute Nucleated RBC 0.0 Immature Gran % 2.0 Neutrophils % 83.0 Band Neutrophils % 2.0 Lymphocytes % 11.0 Monocytes % 4.0 Eosinophils % 0.0 Basophils % 0.0 Nucleated RBC % 0.1 Normal RBC Morphology Not Reportable Polychromasia 1+ Hypochromasia 1+ Anisocytosis 1+ Sodium 135 Potassium 3.8 Chloride 107 Carbon Dioxide 25 Anion Gap 3 BUN 16 Creatinine < 0.30 L Est GFR ( Amer) 271.9 Est GFR (Non-Af Amer) 224.7 BUN/Creatinine Ratio 53.0 H Glucose 88 Calcium 7.9 L Magnesium 1.8 L Microbiology 02/15/19 12:35 Gram Stain - Final Abdomen Wound Culture - Preliminary Pseudomonas Aeruginosa 02/08/19 00:00 Anaerobic Culture - Final Body Fluid Bacteroides Fragilis 02/08/19 00:00 Skin and Soft Tissue MRSA/MSSA (PCR - Final Abdomen Mrsa Negative S.aureus Negative Gram Stain - Final Wound Culture - Final Strep Dysgalactiae (Grp C) Pseudomonas Aeruginosa Bacteroides Fragilis 02/08/19 00:25 Nasal Screen MRSA (PCR) - Final Nasal Mrsa Not Detected 02/04/19 12:00 Urine Culture - Final Urine No Growth (<1,000 CFU/mL) Assessment: 1. Peritonitis. Polymicrobial; improving. Afebrile and continues to have leukocytosis. 2. Leukocytosis. Stable 3. Colon adenocarcinoma with liver metastases. 4. Anemia Plan: Continue cefepime 1 gm IV twice daily and flagyl 500 mg IV twice daily, day 9/ 10.
[2019-02-18] MEDS ORDERED: Magnesium Oxide TAB* 400 MG PO SCH (14:00)
[2019-02-18] MEDS: Ferric Gluconate IV* 100 MG in NS 0.9% 100 ML* 100 ML IVPB ONE ×2 (17:19→18:24)
[2019-02-19] MEDS: Cefepime 1 GM in Dextrose(*) 1 GM/50 ML BAG IV SCH ×2 (00:24→14:02)
[2019-02-19] MEDS: HYDROmorphone INJ1* 1 MG/ML SYRINGE IV SLOW PU PRN ×3 (02:18→11:26)
[2019-02-19 06:29] LABS: Hematocrit 26 % (35-47); Hemoglobin 8.8 g/dL (12.0-16.0); Mean Corpuscular HGB Conc 33 g/dL (31-36); Mean Corpuscular Hemoglobin 28 pg (27-31); Mean Corpuscular Volume 84 fL (80-97); Mean Platelet Volume 7.3 fL (7.4-10.4); Platelet Count 850 10^3/uL (150-450); Red Blood Count 3.15 10^6 /uL (3.70-4.87); Red Cell Distribution Width 18 % (10-15)
[2019-02-19 06:56] LABS: Albumin 2.2 g/dL (3.2-5.2); Albumin/Globulin Ratio 0.7 (1-3); BUN/Creatinine Ratio 34.1 (8-20); Calcium 7.9 mg/dL (8.6-10.3); EGFR African American 189.6 (>60); EGFR Non-African American 156.7 (>60); Globulin 3.1 g/dL (2-4); Magnesium 1.8 mg/dL (1.9-2.7); Phosphorus 3.5 mg/dL (2.5-5.0); Potassium 3.6 mmol/L (3.5-5.0); Total Bilirubin 0.5 mg/dL (0.2-1.0); Total Protein 5.3 g/dL (6.4-8.9)
[2019-02-19 06:58] LABS: ABS Basophils 0.1 10^3/ul (0-0.2); ABS Eosinophils 0.1 10^3/ul (0-0.6); ABS Lymphocytes 0.9 10^3/ul (1.0-4.8); ABS Monocytes 1.1 10^3/ul (0-0.8); ABS Neutrophils 15.9 10^3/ul (1.5-7.7); Eosinophil % 0.5 %; Lymphocyte % 4.8 %; Nucleated Red Blood Cells % 0.1
[2019-02-19 07:24] LABS: Polychromasia 1+
[2019-02-19] MEDS: metroNIDAZOLE IV 500 MG/100ML* 500 MG/100 ML BAG IVPB SCH ×2 (08:43→20:40)
[2019-02-19] MEDS: Famotidine IV* 10 MG/ML 2 ML (20 mg) IV SLOW PU SCH (08:44)
[2019-02-19] MEDS: Heparin VIAL(*) 5000 UNITS/ML VIAL (FIVE THOUSAND) SUBCUT SCH ×2 (08:44→20:37)
[2019-02-19] MEDS ORDERED: Magnesium Oxide TAB* 400 MG PO SCH (09:00)
[2019-02-19] MEDS: Ferric Gluconate IV* 125 MG in NS 0.9% 100 ML* 100 ML IVPB SCH (11:27)
--- NOTE | 2019-02-19 15:31 | PN ---
Progress Note - Progress Note Date of Service: 02/19/19 Note: S: POD # 19, 12. On cefipime, flagyl. ID and heme/onc notes reviewed. Pt states she feels "great". When I stated that she told me that last week, she replied, "then I'm greater". She does have pain ranging from 3-5/10 for which she is still using Dilaudid q4h regularly. States she's eating baby bites of food. No N /V. States she's been having small amt of stool per colostomy, though also states that no one seems to be happy with her output. States she's ambulating. Brings to my attention a couple of areas of localized phlebitis of both UE forearms, likely from former IVs. States they are only sore when directly palpated. O: Vital Signs - 8 hr 02/19/19 02/19/19 02/19/19 11:08 11:26 13:00 Temperature 98.3 F Pulse Rate 89 Respiratory 22 20 20 Rate Blood Pressure 135/55 (mmHg) O2 Sat by Pulse 98 Oximetry 02/19/19 15:15 Temperature 98.7 F Pulse Rate 94 Respiratory 18 Rate Blood Pressure 133/60 (mmHg) O2 Sat by Pulse 91 Oximetry Intake and Output Last 24 Hours 02/17/19 02/18/19 02/19/19 02/20/19 06:59 06:59 06:59 06:59 Intake Total 3949 705 555 760 Output Total 1532 2060 1333 450 Balance 6938 -2802 -282 310 Weight 122 lb 121 lb 2 oz Intake: IV Fluids 50 60 NS (0.9%) 50 60 IVPB 163 115 270 ABX - CEFEPIME 58 55 ABX - FLAGYL 105 105 Ferric Gluconase 115 110 TPN/PPN 2696 Oral 1040 705 440 430 Output: KATIE #1 7 10 8 Urine 1525 2050 1325 450 Colostomy 0 0 Other: # Bowel Movements 0 Gen: thin female; appears pleasant, comfortable Skin: forearm areas w/ localized phlebitic changes; no concern re: infection Heart: irreg (same as baseline) Lungs: some coarse rales; decreased BS at L base Abd: ostomy pink; scant clear fluid in bag. Soft, minimal nonlocalizing tenderness. Midline wound clean; no signs of active infection; drainage clear serous. KATIE: clear serous. Extr: edema, anasarca Labs: Laboratory Tests 02/19/19 02/19/19 06:11 06:11 WBC 18.0 H Hgb 8.8 L Neut % (Auto) 88.0 Sodium 136 Potassium 3.6 Chloride 104 Phosphorus 3.5 Magnesium 1.8 L Albumin 2.2 L No C&S reported (yet) on central line catheter tip A: s/p sigmoid resection for carcinoma; return to OR for anastomotic leak; takedown of anastomosis, end-colostomy; wound infection, s/p wound opening P: discussed w/ Dr. Guillen. Will resume TPN (will need PICC) while trying to encourage po intake. Patient understands the need for protein. ABx per ID. Also encouraged her to hold on any further narcotics; tylenol ordered. Magnesium and K adjusted in TPN.
[2019-02-19] MEDS: Acetaminophen TAB* 325 MG PO PRN ×2 (16:18→20:35)
[2019-02-19] MEDS ORDERED: Lorazepam PYXIS KEY PRN (17:47)
[2019-02-19] MEDS: TPN* 24 HR with Dextrose 50% Water* 500 ML, Amino Acid Infusion 10%* 850 ML, Sterile Wa... CENTR SCH ×13 (18:30)
[2019-02-20] MEDS: Cefepime 1 GM in Dextrose(*) 1 GM/50 ML BAG IV SCH ×2 (00:24→13:23)
[2019-02-20] MEDS: Acetaminophen TAB* 325 MG PO PRN ×2 (00:34→04:36)
[2019-02-20 05:10] LABS: ALT 11 U/L (7-52); AST 16 U/L (13-39); Albumin 2.2 g/dL (3.2-5.2); Albumin/Globulin Ratio 0.7 (1-3); Alkaline Phosphatase 70 U/L (34-104); Anion Gap 5 mmol/L (2-11); BUN/Creatinine Ratio 40.5 (8-20); Blood Urea Nitrogen 15 mg/dL (6-24); CO2 Carbon Dioxide 25 mmol/L (22-32); Calcium 7.8 mg/dL (8.6-10.3); Chloride 106 mmol/L (101-111); Cholesterol 91 mg/dL; EGFR African American 213.4 (>60); EGFR Non-African American 176.4 (>60); Glucose 116 mg/dL (70-100); Magnesium 1.8 mg/dL (1.9-2.7); Phosphorus 2.7 mg/dL (2.5-5.0); Potassium 3.2 mmol/L (3.5-5.0); Sodium 136 mmol/L (135-145); Total Protein 5.2 g/dL (6.4-8.9); Triglycerides 80 mg/dL
[2019-02-20 05:14] LABS: Prealbumin 10 mg/dL (18-38)
[2019-02-20] MEDS: HYDROmorphone INJ1* 1 MG/ML SYRINGE IV SLOW PU PRN ×2 (08:46→14:04)
[2019-02-20] MEDS: Famotidine IV* 10 MG/ML 2 ML (20 mg) IV SLOW PU SCH (08:47)
[2019-02-20] MEDS: Heparin VIAL(*) 5000 UNITS/ML VIAL (FIVE THOUSAND) SUBCUT SCH ×2 (08:47→19:31)
[2019-02-20] MEDS: metroNIDAZOLE IV 500 MG/100ML* 500 MG/100 ML BAG IVPB SCH ×2 (08:47→21:21)
[2019-02-20] MEDS: Ferric Gluconate IV* 125 MG in NS 0.9% 100 ML* 100 ML IVPB SCH (11:57)
--- NOTE | 2019-02-20 12:20 | PN ---
Progress Note - Progress Note Date of Service: 02/20/19 Note: S: POD #20, 13. States she had a terrible night 2/2 abd pain- steady, sharp. This seemed to be in conjunction w/ increased ostomy output (flatus and stool). She did have one dose of Dilaudid at 8:46 this a.m., but tried her best to hold off. No sig pain at present. Eating better. Ambulating. ECHO done this a.m. ( ordered by hospitalist for ECG irreg) O: Vital Signs - 8 hr 02/20/19 02/20/19 02/20/19 04:28 07:16 08:00 Temperature 97.5 F 98.4 F Pulse Rate 92 88 Respiratory 17 25 20 Rate Blood Pressure 144/96 138/64 (mmHg) O2 Sat by Pulse 96 95 Oximetry 02/20/19 02/20/19 02/20/19 08:46 10:37 11:20 Temperature 97.9 F Pulse Rate 94 Respiratory 18 18 26 Rate Blood Pressure 137/73 (mmHg) O2 Sat by Pulse 100 Oximetry Intake and Output Last 24 Hours 02/18/19 02/19/19 02/20/19 02/21/19 06:59 06:59 06:59 06:59 Intake Total 550 853 5267 Output Total 2059 1333 1650 525 Balance -1355 -778 999 -525 Weight 122 lb 121 lb 2 oz 116 lb 9.6 oz Intake: IV Fluids 989 ABX - CEFEPIME 50 ABX - FLAGYL 105 NS (0.9%) 60 TPN 774 IVPB 115 270 ABX - CEFEPIME 55 ABX - FLAGYL 105 Ferric Gluconase 115 110 Oral 597 674 4251 Output: KATIE #1 10 8 Urine 2049 1325 1550 525 Colostomy 0 100 Other: # Bowel Movements 0 Gen: sitting up in chair; NAD Heart: irreg c/w baseline Lungs: clear, though decreased at R base Abd: colostomy w/ liq stool; I did not take down dressing; +BS; soft, nontender ; anasarca Extr: (c/o pain dorsum of L foot w/ direct palp); generalized edema (1-2 + pitting); no erythema; min tenderness; no calf tenderness Labs: Laboratory Tests 02/20/19 04:44 Potassium 3.2 L Glucose 116 H Magnesium 1.8 L Albumin 2.2 L Prealbumin 10 L A: s/p sigmoid colon rsxn; takedown of anastomosis (for leak); end-colostomy; improving P: replete KCl; cont TPN; no reason for fs glucoses; cont to try to manage pain (which I believe is functional GI) w/o narcotics; ambulate; abx per ID ( consider d/c'ing?); KATIE drain w/ negligible output (consider removal)
[2019-02-20] MEDS: Potassium Chlor TAB* 10 MEQ TAB.ER PO SCH ×2 (13:23→19:27)
--- NOTE | 2019-02-20 15:04 | ECHO ---
*[facility]* [place] [address] Fax #: [phone] Transthoracic Echocardiogram Patient: Radha Height: 62 in / Isabela Noel 157.5 cm : 1955 Weight: 120.7 lb / Study Date: 02/20/2019 54.9 kg Age: 63 BP: 132 / 58 Gender: F BMI/BSA: 22.1 kg/m^2 HR: 93 bpm / 1.54 m^2 *Amplifier Mechanic: * Christie Albert [facility] *Referring Physician: * Elly Coffman *Reading Physician: * Derick Waldron MD Indications: Abnormal EKG. History: Chronic obstructive pulmonary disease. Risk factors: Current tobacco use. Hypertension. Hyperlipidemia. Colon cancer S/P Sigmoid resection current admission. Conclusions Summary: 1. Left ventricle: Systolic function is mildly to moderately reduced. The estimated ejection fraction is 40-45%, by visual assessment. Features are consistent with a pseudonormal left ventricular filling pattern, with concomitant abnormal relaxation and increased filling pressure (grade 2 diastolic dysfunction). 2. Right ventricle: Systolic function is mildly reduced. 3. Left atrium: The atrium is moderately dilated. 4. Right atrium: The atrium is moderately dilated. 5. Mitral valve: There is moderate regurgitation, with multiple jets. 6. Aortic valve: There is moderate regurgitation. 7. Tricuspid valve: There is trace to mild regurgitation. 8. Pericardium, extracardiac: A moderate, partially loculated pericardial effusion is identified circumferential to the heart. There is no evidence of hemodynamic compromise. There is a left pleural effusion. Study data: Transthoracic echocardiogram. Procedure: Transthoracic echocardiography was performed. Image quality was good. Complete 2D, spectral Doppler, and color flow Doppler. Location: Bedside. Patient status: Inpatient. Patient room number: 331. No prior study is available for comparison. Rhythm: Normal sinus rhythm with PAC's. Findings Left ventricle: The cavity size is below normal. Systolic function is mildly to moderately reduced. The estimated ejection fraction is 40-45%, by visual assessment. Regional wall motion abnormalities: Hypokinesis of the basal-midanteroseptal and inferoseptal myocardium. Hypokinesis of the midinferior myocardium. Moderate hypokinesis of the mid inferoseptal, mid inferior, and mid inferolateral myocardium. Features are consistent with a pseudonormal left ventricular filling pattern, with concomitant abnormal relaxation and increased filling pressure (grade 2 diastolic dysfunction). Right ventricle: The cavity size is normal. Systolic function is mildly reduced. The tricuspid jet envelope definition is inadequate for estimation of RV systolic pressure. There are no indirect findings (abnormal RV volume or geometry, altered pulmonary flow velocity profile, or leftward septal displacement) which would suggest moderate or severe pulmonary hypertension. Left atrium: The atrium is moderately dilated. Right atrium: The atrium is moderately dilated. Mitral valve: The leaflets are mildly thickened. There is no evidence of stenosis. There is moderate regurgitation, with multiple jets. Aortic valve: The valve is trileaflet. The leaflets are mildly thickened. There is no evidence of stenosis. There is moderate regurgitation. Tricuspid valve: The leaflets are normal thickness. There is no evidence of stenosis. There is trace to mild regurgitation. Pulmonic valve: The leaflets are normal thickness. There is no evidence of stenosis. There is trivial regurgitation. Aorta: Ascending aorta: The ascending aorta is appears normal. Aortic arch: The aortic arch is appears normal. The aortic root is not dilated. Pericardium: A moderate, partially loculated pericardial effusion is identified circumferential to the heart. There is no evidence of hemodynamic compromise. There is a left pleural effusion. Pulmonary arteries: The main pulmonary artery is normal-sized. Systemic veins: Inferior vena cava: The vessel is normal in size. The respirophasic diameter changes are in the normal range (>= 50%). Measurements Left ventricle Value Ref Aortic valve continued Value Ref TAMMY, LAX (L) 3.6 cm 3.8 - 5.2 Peak v, S 1.48 m/sec ----- ESD, LAX 2.9 cm 2.2 - 3.5 VTI, S 28.6 cm ----- FS, LAX (L) 20 % - 45 Mean grad, S 3.0 mm Hg ----- PW, ED, LAX 0.8 cm 0.6 - 0.9 Peak grad, S 9.0 mm Hg ----- FS (L) 20 % 27 - 45 LVOT/AV, VTI ratio 0.7 ----- PW, ED 0.8 cm 0.6 - 0.9 AR peak v 4.02 m/sec ----- E', lat destiny, TDI (L) 7.6 cm/sec >=10.0 AR PHT 210 ms - ---- E/e', lat destiny, 15 AR peak grad 65 mm Hg ---- - TDI E', med destiny, TDI 8.1 cm/sec >=7.0 Mitral valve Value R ef E/e', med destiny, 14 Peak E 1.15 m/sec ---- - TDI Peak A 0.9 m/sec ----- E', avg, TDI 7.9 cm/sec Decel time 183 ms ---- - E/e', avg, TDI (H) 15 <=14 Peak grad, D 5.3 mm Hg - ---- Peak E/A ratio 1.3 ----- LVOT Value Ref Peak alexander, S 0.96 m/sec Pulmonic valve Value Ref VTI, S 20.0 cm Peak v, S 0.9 m/sec ----- Mean grad, S 2 mm Hg Peak grad, S 3.0 mm Hg ----- Ventricular septum Value Ref Tricuspid valve Value Ref IVS, ED 0.8 cm 0.6 - 0.9 TR peak v 2.22 m/sec <=2.8 Peak RV-RA grad, S 20 mm Hg ----- Right ventricle Value Ref AW thickness, ED 0.4 cm 0.1 - 0.5 Aortic root Value Ref TAMMY, LAX 3.0 cm Root diam 2.7 cm <3.8 TAMMY minor ax, A4C (H) 3.6 cm 1.9 - 3.5 mid Ascending aorta Value Ref Pressure, S 23 mm Hg AAo AP diam, S 3.1 cm ----- Left atrium Value Ref Aortic arch Value Ref AP dim, ES 3.30 cm 2.70 - Arch diam 2.2 cm ----- 3.80 ML dim, A4C 4.6 cm Decending aorta Value Ref SI dim, A4C 5.2 cm Reema peak alexander 0.62 m/sec ----- Vol/bsa, ES, 1-p (H) 47 ml/m^2 11 - 40 A4C Pulmonary artery Value Ref Vol/bsa, ES, A/L (H) 49 ml/m^2 16 - 34 Pressure, S 20.0 mm Hg ----- Right atrium Value Ref Inferior vena cava Value Ref SI dim, ES (H) 5.5 cm 3.4 - 5.3 Diam 1.9 cm ----- ML dim, ES, A4C 3.8 cm 2.6 - 4.4 SI dim, ES, A4C (H) 5.5 cm 3.4 - 5.3 Estimated RAP 3 mm Hg Aortic valve Value Ref Destiny diam, ED 1.9 cm Legend: (L) and (H) genaro values outside specified reference range. Prepared and electronically signed by Derick Waldron MD 02/20/2019 15:03
[2019-02-20] MEDS ORDERED: Aspirin TAB* 325 MG PO ONE (17:07)
[2019-02-20] MEDS: Polyethylene Glycol 3350* 17 GM PACKET PO SCH (17:13)
[2019-02-20] MEDS: KCL 20 MEQ/100 ML IVPREMIX* 20 MEQ/100 ML BAG IV SCH ×3 (17:13→21:21)
[2019-02-20] MEDS: TPN* 24 HR with Dextrose 50% Water* 500 ML, Amino Acid Infusion 10%* 850 ML, Sterile Wa... CENTR SCH ×13 (17:26)
[2019-02-20 17:49] LABS: Troponin I 0.01 ng/mL (<0.04)
--- NOTE | 2019-02-20 18:17 | CONS ---
CC: Dr. Mendosa; Dr. Waldron * CARDIOLOGY CONSULTATION: DATE OF CONSULT: 02/20/19 CONSULTING PHYSICIAN: WAQAS De Jesus ATTENDING PROVIDER: WAQAS Jefferson REASON FOR EVALUATION: Arrhythmias, abnormal echo. HISTORY OF PRESENT ILLNESS: This is a very pleasant 63-year-old woman with colon cancer, who was admitted for resection of a colon cancer and repair of a rectovaginal fistula. She has had a complicated course including suture leak and reoperation for peritonitis with purulent material. Her course has been complicated by hypotension and arrhythmias. She has had SVT, APCs as well as what appeared to be a run of wide complex tachycardia for 20 beats on 02/17/19 at 10:19. She has been asymptomatic. She denies any syncope, near syncope, chest pain, or previous heart disease. She also has had multiple electrolyte abnormalities and required TPN. She just started eating solid food in the last 24 hours. She has a history of tobacco use of a pack per day for 40 years, discontinued on 01/31/19. She has a history of hypertension, hyperlipidemia, on medicines and also carotid lesion in October, although we do not have the results of that, that was done at [facility] and she was told that there was some mild narrowing. No need for intervention at this point. She was told to have COPD. She denies strokes, mini strokes, rheumatic fever or murmurs. She also has a history of anemia and colon cancer with lesion on the liver and a lesion on the lung which are being followed and felt to have metastatic disease at least to the liver. PAST SURGICAL HISTORY: Includes a meniscal repair in 2011 in the left knee. She also had surgery on 01/31/19 for colovaginal fistula and repeat surgery on 02/07/19 for small bowel obstruction, anastomotic leak, found to have small bowel obstruction, purulent peritonitis, necrotic rectal stump and inflamed distal appendix. She had exploratory laparotomy. Culture and evacuation of purulent peritonitis with abdominal washout, appendectomy, takedown anastomosis , excised necrotic rectal stump and colostomy and lysis of adhesions. She subsequently was hypotensive and was treated with fluid resuscitation and antibiotics. She is slowly improved, but has been noted to have continued arrhythmias. An echocardiogram was obtained today, which revealed some mild LV dysfunction with segmental wall motion abnormalities and moderate MR. MEDICATIONS: Include: 1. Acetaminophen. 2. Albuterol. 3. Cefepime 1 g q.12. 4. Sodium gluconate IV. 5. Pepcid IV 20 mg. 6. Hydralazine 5 mg IV q.6 p.r.n. 7. Hydromorphone 0.5 IV q.4 p.r.n. 8. Ativan 0.5 mg IV q.6 p.r.n. 9. Flagyl 500 mg q.12. 10. Potassium chloride 10 mEq t.i.d. As an outpatient, she has been on: 1. Lisinopril. 2. Rosuvastatin 20. 3. Aspirin enteric-coated 81. 4. Multivitamins. ALLERGIES: She denies any drug allergies. FAMILY HISTORY: She has a brother and 2 sisters who are alive, one sister after a chemical exposure to cleaning materials which damaged her lungs, one sister Jazzy of COPD and one brother Usman of cancer. She says that she normally weighs about 97 pounds, but has lost significant weight over the course of this hospitalization. SOCIAL HISTORY: She has about a beer a week and 2 cocktails a year. She has had 3 normal spontaneous vaginal deliveries. She is and accompanied by her . She has 3 children. REVIEW OF SYSTEMS: Review of systems x10 was negative except as above. PHYSICAL EXAM: She is a well-developed thin, frail appearing female in no apparent distress. Blood pressure 147/69, pulse of 96, temperature 98.4, respiratory rate 20, O2 sat 94% on 2 L. JVD approximately 8 cm. Carotids 2+ with a right carotid bruit. No cervical adenopathy. Cardiac Exam: S1, S2, somewhat irregular with a 1/6 holosystolic murmur at the left lower sternal border and apex. Chest was clear with decreased breath sounds. No CVAT. Abdomen: Bowel sounds present, nontender, colostomy in place. Left femoral bruits. Right femoral pulses intact without bruit. Distal pulses diminished with 2+ edema to the lower extremities. Motor strength 5/5 bilaterally. Deep tendon reflexes are 2/4. Alert and oriented x3. DIAGNOSTIC STUDIES/LAB DATA: Include sodium 136, potassium at 3.2, BUN of 15, creatinine of 0.37, calcium 7.8, magnesium 1.8. The troponin was pending. Albumin low at 2.2, prealbumin low at 10. Cholesterol 91. Sodium 8.8, hematocrit of 26, white count of 18, platelet count of 850,000. Echo from today revealed mild to moderately reduced LV systolic function, EF of 40% to 45% with pseudonormal filling pattern consistent with abnormal diastolic function. There were also segmental wall motion abnormalities with inferior posterior hypokinesis, mild RV dysfunction, moderate biatrial enlargement, moderate MR, multiple jets, moderate pericardial effusion without compromise and left pleural effusion and trace mild TR. IMPRESSION: My impression is that Ms. Garcia has multiple medical issues and now has multiple arrhythmias after a complicated course after colon resection and peritonitis postop. She also has multiple electrolyte abnormalities that may be contributing to arrhythmias. Wall motion abnormalities and her risk factors and peripheral vascular disease and carotid disease raise the possibility of coronary disease as well. She also may be developing hemodynamically significant mitral regurgitation. I did discuss these findings with her and Alicia Blum and with the patient, her and Julius Irving. For the time being, I recommend the followin. I would suggest replacing her electrolytes to decrease likelihood of arrhythmia. 2. I asked to refrain from excessive caffeine use. 3. I adding a troponin, which just came back at 1.24. This might be due to recent infarct. Given the presence of wall motion abnormality and recent infarct in the setting of extreme stress, would suggest pharmacologic stress test to assess risk prior to discharge. Would start aspirin and a beta-giovanni at this point in time. Would restart her lipid agent as soon as appropriate from GI standpoint and surgical standpoint. I commended her on stopping smoking and advised her of the dangers of restarting smoking in terms of increased risk. Would consider a repeat carotid study. She does have edema and pleural effusions and pericardial effusions. It is unclear whether this is due to malnutrition, heart failure, or metastatic disease. Again, for now, we will replace her electrolytes and supplemental nutrition and wait, follow for resolution. Would consider possibility that she has metastatic disease involving the pleural spaces and pericardium at some point as discussed with Julius Irving. Further recommendations will depend on her clinical course. [id number]/[facility] #: [id number] SHAY
--- NOTE | 2019-02-20 18:17 | PN ---
Subjective Date of Service: 02/20/19 Interval History: Patient reports feeling well today. Denies palpitations, chest pain, difficulty breathing, dizziness/lightheadedness, fever/chills, abd pain. Family History: Unchanged from Admission Social History: Unchanged from Admission Past Medical History: Unchanged from Admission Objective Active Medications: Acetaminophen (Tylenol Tab*) 650 mg PO Q4H PRN PRN Reason: mild pain Last Admin: 02/20/19 04:36 Dose: 650 mg Albuterol (Ventolin 2.5 Mg/3 Ml Neb.Dinora*) 2.5 mg INH Q4H PRN PRN Reason: SOB/WHEEZING Aspirin (Aspirin Ec Tab*) 81 mg PO DAILY [facility] Dextrose (D50w Syringe 50 Ml*) 12.5 gm IV PUSH .FOR FS < 60 - SS PRN PRN Reason: FS < 60 Famotidine (Pepcid Iv*) 20 mg IV SLOW PU DAILY [facility] Last Admin: 02/20/19 08:47 Dose: 20 mg Heparin Sodium (Porcine) (Heparin Vial(*)) 5,000 units SUBCUT Q12HR [facility] Last Admin: 02/20/19 08:47 Dose: 5,000 units Heparin Sodium (Porcine) (Heparin Flush Picc/Ml/Cvc(*)) 1 - 3 ml FLUSH 0600, 1800 [facility]; Protocol Last Admin: 02/20/19 17:53 Dose: 1 ml Hydralazine HCl (Apresoline Iv*) 5 mg IV SLOW PU Q6H PRN PRN Reason: SYSTOLIC BP GREATER THAN: Last Admin: 02/09/19 11:40 Dose: 5 mg Hydromorphone HCl (Dilaudid Inj1s*) 0.5 mg IV SLOW PU Q4H PRN PRN Reason: PAIN Last Admin: 02/20/19 14:04 Dose: 0.5 mg Cefepime HCl (Maxipime 1 Gm In Dextrose Duplex (*)) 1 gm in 50 mls @ 100 mls/ hr IV Q12H [facility] Last Admin: 02/20/19 13:23 Dose: 100 mls/hr Metronidazole/Sodium Chloride (Flagyl 500 Mg Ivpb*) 500 mg in 100 mls @ 100 mls /hr IVPB Q12HR [facility] Last Admin: 02/20/19 08:47 Dose: 100 mls/hr Ferric Sodium Gluconate Complex 125 mg/ Sodium Chloride 110 mls @ 110 mls/hr IVPB DAILY@1100 [facility] Stop: 02/25/19 11:59 Last Admin: 02/20/19 11:57 Dose: 110 mls/hr Dextrose 500 ml/ Amino Acids 850 ml/ Sterile Water 150 ml/Fat Emulsion Intravenous 250 ml/ Sodium Chloride 100 meq/Potassium Chloride 60 meq/Potassium Phosphate 10 mmole/Calcium Gluconate 15 meq/Magnesium Sulfate 20 meq/ Multivitamins 10 ml/ Trace Metals 1 ml/ Phytonadione 0.2 mg/ Nutrition ( Parenteral) 1,856.6174 mls @ 77.359 mls/hr [facility] 1700 [facility]; Protocol Last Admin: 02/20/19 17:26 Dose: 77.359 mls/hr Potassium Chloride (Potassium Chloride 20 Meq/100 Ml Ivpremix*) 20 meq in 100 mls @ 50 mls/hr IV Q2H [facility] Stop: 02/20/19 22:59 Last Admin: 02/20/19 17:13 Dose: 50 mls/hr Lorazepam (Ativan Inj*) 0.5 mg IV PUSH Q6H PRN PRN Reason: ANXIETY Metoprolol Succinate (Toprol Xl Tab*) 25 mg PO BID [facility] Miscellaneous (Ativan Pyxis Croft) 1 ea N/A .ATIVAN IV CROFT PRN PRN Reason: PYXIS CROFT Ondansetron HCl (Zofran Inj*) 4 mg IV Q6H PRN PRN Reason: NAUSEA Last Admin: 02/03/19 20:42 Dose: 4 mg Polyethylene Glycol/Electrolytes (Miralax*) 17 gm PO DAILY [facility] Last Admin: 02/20/19 17:13 Dose: 17 gm Potassium Chloride (Klor Con Er Tab*) 10 meq PO TID [facility] Last Admin: 02/20/19 13:23 Dose: 10 meq Vital Signs - 8 hr 02/20/19 02/20/19 02/20/19 10:37 11:20 14:04 Temperature 97.9 F Pulse Rate 94 Respiratory 18 26 16 Rate Blood Pressure 137/73 (mmHg) O2 Sat by Pulse 100 Oximetry 02/20/19 02/20/19 15:41 15:56 Temperature 98.4 F Pulse Rate 96 Respiratory 18 20 Rate Blood Pressure 147/69 (mmHg) O2 Sat by Pulse 94 Oximetry Oxygen Devices in Use Now: None Appearance: Thin, white woman sitting upright in hospital chair, appearing in NAD Eyes: No Scleral Icterus, PERRLA Ears/Nose/Mouth/Throat: Mucous Membranes Moist Neck: NL Appearance and Movements; NL JVP Respiratory: Symmetrical Chest Expansion and Respiratory Effort, Clear to Auscultation Cardiovascular: NL Sounds; No Murmurs; No JVD, RRR Abdominal: - - abd soft, nontender, nondistended Extremities: No Clubbing, Cyanosis, - - +1-2 pitting edema of bilateral LEs pretibially Skin: No Rash or Ulcers Neurological: Alert and Oriented x 3, NL Muscle Strength and Tone Result Diagrams: 02/19/19 06:11 02/20/19 04:44 Microbiology and Other Data: Microbiology 02/08/19 00:00 Anaerobic Culture - Preliminary Body Fluid Bacteroides Fragilis 02/08/19 00:00 Skin and Soft Tissue MRSA/MSSA (PCR - Final Abdomen Mrsa Negative S.aureus Negative Gram Stain - Final Wound Culture - Preliminary Strep Dysgalactiae (Grp C) Pseudomonas Aeruginosa Bacteroides Fragilis 02/08/19 00:25 Nasal Screen MRSA (PCR) - Final Nasal Mrsa Not Detected 02/04/19 12:00 Urine Culture - Final Urine No Growth (<1,000 CFU/mL) Assess/Plan/Problems-Billing Assessment: Ms. 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 Now s/p sigmoid colectomy. Course complicated by hypotension, tachycardia, abdominal distention. Went to OR 02/07/19 for ex lap with evacuation of purulent peritonitis, s/p appendectomy, end colostomy, removal of necrotic rectum tip. Subsequently was transferred to the ICU for further care, and transferred to the floor 02/10/19. - Patient Problems (1) Arrhythmia Code(s): I49.9 - CARDIAC ARRHYTHMIA, UNSPECIFIED SNOMED Code(s): 240543731 Comment: -frequent PACs -echo today demonstrates diastolic dysfunction, EF 40-45%, and new pericardial effusion -hypokalemia today likely contributing as well, replacing K -cardiology consulted, appreciate recommendations (2) Colon cancer Comment: - Oncology following - S/p sigmoid colectomy and colostomy - mets to liver and possibly lung (3) Electrolyte abnormality Code(s): E87.8 - OTH DISORDERS OF ELECTROLYTE AND FLUID BALANCE, NEC SNOMED Code(s): 388473609 Comment: -hypokalemia today, replacing K -TPN has been adjusted during this hospitalization and K was stable for approx one week until today (4) Full code status Code(s): Z78.9 - OTHER SPECIFIED HEALTH STATUS SNOMED Code(s): 105154289 Comment: (5) DVT prophylaxis Code(s): Z29.9 - ENCOUNTER FOR PROPHYLACTIC MEASURES, UNSPECIFIED SNOMED Code( s): 707086608 Comment: - Heparin SQ Status and Disposition: Disposition her surgery. As heme/onc is following this patient, we will follow up cardiology recommendations and then sign off unless otherwise needed. Please feel free to call with any further questions.
[2019-02-20 18:47] LABS: BUN/Creatinine Ratio 34.2 (8-20); Calcium 7.8 mg/dL (8.6-10.3); Potassium 3.4 mmol/L (3.5-5.0)
[2019-02-20] MEDS: Metoprolol Succinate XL TAB* 25 MG PO SCH (19:27)
[2019-02-20] MEDS: LORazepam INJ* 2 MG/ML 1 ML VIAL IV PUSH PRN (19:28)
[2019-02-21] MEDS: Cefepime 1 GM in Dextrose(*) 1 GM/50 ML BAG IV SCH (00:54)
[2019-02-21] MEDS: LORazepam INJ* 2 MG/ML 1 ML VIAL IV PUSH PRN ×3 (01:39→16:17)
[2019-02-21 05:42] LABS: ABS Basophils 0.1 10^3/ul (0-0.2); ABS Eosinophils 0.2 10^3/ul (0-0.6); ABS Monocytes 1.2 10^3/ul (0-0.8); ABS Neutrophils 15.8 10^3/ul (1.5-7.7); Eosinophil % 0.9 %; Hematocrit 24 % (35-47); Lymphocyte % 5.3 %; Mean Corpuscular HGB Conc 33 g/dL (31-36); Mean Corpuscular Hemoglobin 28 pg (27-31); Mean Corpuscular Volume 84 fL (80-97); Nucleated Red Blood Cells % 0.1; Platelet Count 669 10^3/uL (150-450); Red Blood Count 2.89 10^6 /uL (3.70-4.87); Red Cell Distribution Width 17 % (10-15); White Blood Count 18.3 10^3/uL (3.5-10.8)
[2019-02-21 06:00] LABS: BUN/Creatinine Ratio 36.4 (8-20); Calcium 7.9 mg/dL (8.6-10.3); EGFR African American 243.6 (>60); EGFR Non-African American 201.3 (>60); Magnesium 1.8 mg/dL (1.9-2.7)
[2019-02-21 06:02] LABS: Troponin I 0.01 ng/mL (<0.04)
[2019-02-21] MEDS: Metoprolol Succinate XL TAB* 25 MG PO SCH ×2 (08:48→21:20)
[2019-02-21] MEDS: Aspirin EC TAB* 81 MG TAB.EC PO SCH (08:48)
[2019-02-21] MEDS: Potassium Chlor TAB* 10 MEQ TAB.ER PO SCH ×3 (08:48→21:20)
[2019-02-21] MEDS: Polyethylene Glycol 3350* 17 GM PACKET PO SCH (08:48)
[2019-02-21] MEDS: Famotidine IV* 10 MG/ML 2 ML (20 mg) IV SLOW PU SCH (08:48)
[2019-02-21] MEDS: metroNIDAZOLE IV 500 MG/100ML* 500 MG/100 ML BAG IVPB SCH (08:48)
[2019-02-21] MEDS: Heparin VIAL(*) 5000 UNITS/ML VIAL (FIVE THOUSAND) SUBCUT SCH ×2 (08:49→21:21)
--- NOTE | 2019-02-21 11:23 | PN ---
Progress Note - Progress Note Date of Service: 02/21/19 SOAP: Subjective: [Continues to improve slowly. Some abdominal pain which increases with eating, but otherwise appears to be tolerating low volumes of a regular diet well. Good ostomy output. Remains on TPN with albumin 2.2 and prealbumin of 10 measured yesterday. Some dyspnea with activity. No cough. No fevers. Tolerating IV iron without complications.] Objective: [ Vital Signs: Temp Pulse Resp BP Pulse Ox 98 F 89 16 144/78 99 02/21/19 07:13 02/21/19 07:13 02/21/19 09:21 02/21/19 07:13 02/21/19 07:13 Acetaminophen (Tylenol Tab*) 650 mg PO Q4H PRN PRN Reason: mild pain Last Admin: 02/20/19 04:36 Dose: 650 mg Albuterol (Ventolin 2.5 Mg/3 Ml Neb.Dinora*) 2.5 mg INH Q4H PRN PRN Reason: SOB/WHEEZING Aspirin (Aspirin Ec Tab*) 81 mg PO DAILY [facility] Last Admin: 02/21/19 08:48 Dose: 81 mg Dextrose (D50w Syringe 50 Ml*) 12.5 gm IV PUSH .FOR FS < 60 - SS PRN PRN Reason: FS < 60 Famotidine (Pepcid Iv*) 20 mg IV SLOW PU DAILY [facility] Last Admin: 02/21/19 08:48 Dose: 20 mg Heparin Sodium (Porcine) (Heparin Vial(*)) 5,000 units SUBCUT Q12HR [facility] Last Admin: 02/21/19 08:49 Dose: 5,000 units Heparin Sodium (Porcine) (Heparin Flush Picc/Ml/Cvc(*)) 1 - 3 ml FLUSH 0600, 1800 [facility]; Protocol Last Admin: 02/21/19 05:24 Dose: Not Given Hydralazine HCl (Apresoline Iv*) 5 mg IV SLOW PU Q6H PRN PRN Reason: SYSTOLIC BP GREATER THAN: Last Admin: 02/09/19 11:40 Dose: 5 mg Hydromorphone HCl (Dilaudid Inj1s*) 0.5 mg IV SLOW PU Q4H PRN PRN Reason: PAIN Last Admin: 02/20/19 14:04 Dose: 0.5 mg Cefepime HCl (Maxipime 1 Gm In Dextrose Duplex (*)) 1 gm in 50 mls @ 100 mls/ hr IV Q12H [facility] Last Admin: 02/21/19 00:54 Dose: 100 mls/hr Metronidazole/Sodium Chloride (Flagyl 500 Mg Ivpb*) 500 mg in 100 mls @ 100 mls /hr IVPB Q12HR [facility] Last Admin: 02/21/19 08:48 Dose: 100 mls/hr Ferric Sodium Gluconate Complex 125 mg/ Sodium Chloride 110 mls @ 110 mls/hr IVPB DAILY@1100 [facility] Stop: 02/25/19 11:59 Last Admin: 02/20/19 11:57 Dose: 110 mls/hr Dextrose 500 ml/ Amino Acids 850 ml/ Sterile Water 150 ml/Fat Emulsion Intravenous 250 ml/ Sodium Chloride 100 meq/Potassium Chloride 60 meq/Potassium Phosphate 10 mmole/Calcium Gluconate 15 meq/Magnesium Sulfate 20 meq/ Multivitamins 10 ml/ Trace Metals 1 ml/ Phytonadione 0.2 mg/ Nutrition ( Parenteral) 1,856.6174 mls @ 77.359 mls/hr [facility]; Protocol Last Admin: 02/20/19 17:26 Dose: 77.359 mls/hr Lorazepam (Ativan Inj*) 0.5 mg IV PUSH Q6H PRN PRN Reason: ANXIETY Last Admin: 02/21/19 09:21 Dose: 0.5 mg Metoprolol Succinate (Toprol Xl Tab*) 25 mg PO BID [facility] Last Admin: 02/21/19 08:48 Dose: 25 mg Miscellaneous (Ativan Pyxis Croft) 1 ea N/A .ATIVAN IV CROFT PRN PRN Reason: PYXIS CROFT Ondansetron HCl (Zofran Inj*) 4 mg IV Q6H PRN PRN Reason: NAUSEA Last Admin: 02/03/19 20:42 Dose: 4 mg Polyethylene Glycol/Electrolytes (Miralax*) 17 gm PO DAILY [facility] Last Admin: 02/21/19 08:48 Dose: 17 gm Potassium Chloride (Klor Con Er Tab*) 10 meq PO TID [facility] Last Admin: 02/21/19 08:48 Dose: 10 meq Laboratory Results - last 24 hr 02/19/19 02/20/19 02/20/19 06:11 04:44 16:58 WBC RBC Hgb Hct MCV MCH MCHC RDW Plt Count MPV Neut % (Auto) Lymph % (Auto) [place] % (Auto) Eos % (Auto) Baso % (Auto) Absolute Neuts (auto) Absolute Lymphs (auto) Absolute Monos (auto) Absolute Eos (auto) Absolute Basos (auto) Absolute Nucleated RBC Nucleated RBC % Sodium 136 136 135 Potassium 3.6 3.2 L 3.4 L Chloride 104 106 105 Carbon Dioxide 26 25 26 Anion Gap 6 5 4 BUN 14 15 13 Creatinine 0.41 L 0.37 L 0.38 L Est GFR ( Amer) 189.6 213.4 207.0 Est GFR (Non-Af Amer) 156.7 176.4 171.0 BUN/Creatinine Ratio 34.1 H 40.5 H 34.2 H Glucose 90 116 H 103 H Calcium 7.9 L 7.8 L 7.8 L Phosphorus 3.5 2.7 Magnesium 1.8 L 1.8 L Total Bilirubin 0.50 0.40 AST 19 16 ALT 10 11 Alkaline Phosphatase 80 70 Troponin I Cancelled 0.01 Total Protein 5.3 L 5.2 L Albumin 2.2 L 2.2 L Globulin 3.1 3.0 Albumin/Globulin Ratio 0.7 L 0.7 L Prealbumin 10 L Triglycerides 115 80 Cholesterol 91 02/21/19 02/21/19 05:35 05:35 WBC 18.3 H RBC 2.89 L Hgb 8.0 L Hct 24 L MCV 84 MCH 28 MCHC 33 RDW 17 H Plt Count 669 H D MPV 7.0 L Neut % (Auto) 86.2 Lymph % (Auto) 5.3 [place] % (Auto) 6.8 Eos % (Auto) 0.9 Baso % (Auto) 0.8 Absolute Neuts (auto) 15.8 H Absolute Lymphs (auto) 1.0 Absolute Monos (auto) 1.2 H Absolute Eos (auto) 0.2 Absolute Basos (auto) 0.1 Absolute Nucleated RBC 0.0 Nucleated RBC % 0.1 Sodium 133 L Potassium 4.0 Chloride 105 Carbon Dioxide 25 Anion Gap 3 BUN 12 Creatinine 0.33 L Est GFR ( Amer) 243.6 Est GFR (Non-Af Amer) 201.3 BUN/Creatinine Ratio 36.4 H Glucose 137 H Calcium 7.9 L Phosphorus Magnesium 1.8 L Total Bilirubin AST ALT Alkaline Phosphatase Troponin I 0.01 Total Protein Albumin Globulin Albumin/Globulin Ratio Prealbumin Triglycerides Cholesterol Exam: Gen: Relatively well appearing and smiling 63 yo female in NAD, accompanied by her HEENT: MMM CV: RRR, no m/r/g Resp: CTA, no w/c/r Abd: mildly distended, active BS, thin output from ostomy. Midline incision with clean bandage and KATIE drain with minimal volume. Ext: trace LE edema] [Assessment: []63 year old with know metastatic colon cancer, solitary hepatic lesion and question of pulmonary lesion as well. 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 She is continuing to improve after surgery. Plan: 1. S/p colostomy - management per surgery, appears to be improving 2. Malnutrition - tolerating a regular diet and TPN with continued hypoalbuminemia, but improved over admission - TPN per surgery 3. Peritonitis secondary to bowel perforation - noted persistent leukocytosis, but afebrile - cont Cefepime and Flagyl per ID, length of therapy per ID recommendations 4. Anemia - cont IV iron during hospital stay - Hgb stable 5. Metastatic colon CA - plan restaging CT as an outpatient prior to initiating therapy - will follow up with Dr Mendosa shortly following discharge to make treatment plans, but it will likely be several weeks before she is physically fit to initiate chemotherapy Dispo: per surgery, oncology will cont to be involved as necessary. Medical recommendations per hospitalist.
[2019-02-21] MEDS: Ferric Gluconate IV* 125 MG in NS 0.9% 100 ML* 100 ML IVPB SCH (11:37)
--- NOTE | 2019-02-21 12:27 | PN ---
Progress Note - Progress Note Date of Service: 02/21/19 SOAP: Subjective: CC: Abdominal infection HPI: Ms. Garcia is a 63 yo female with PMH significant for colon cancer with liver mets s/p sigmoid colectomy, BRENNA, HTN, and HLD; who underwent an exp lap, evacuation of purulent peritonitis, appy, take down of anastomosis, excision of necrotic rectal stump, and end colostomy. Denies fever, chills, shortness of breath, cough, ABD pain, nausea, or vomiting. Reports occasional mucous production with cough. She reports passing flatus into her ostomy and liquid in the ostomy bag. She is tolerating a few bites of regular food, and has a craving for root beer today. Objective: Vital Signs - 8 hr 02/21/19 02/21/19 02/21/19 04:40 04:43 07:13 Temperature 97.5 F 98 F Pulse Rate 87 47 89 Respiratory 13 20 30 Rate Blood Pressure 136/60 144/78 (mmHg) O2 Sat by Pulse 97 97 99 Oximetry 02/21/19 02/21/19 02/21/19 09:21 10:25 11:31 Temperature 97.6 F Pulse Rate 89 Respiratory 16 18 26 Rate Blood Pressure 114/54 (mmHg) O2 Sat by Pulse 100 Oximetry Physical Exam: General: NAD, sitting up in a chair Neurological: Alert and Oriented x 4 HEENT: Moist MM, no thrush Cardiovascular: Heart rate regular Respiratory: Lung sounds clear bilateral Abdominal: Bowel sounds present; ABD soft, non tender and non distended Skin: No rash seen on the exposed skin Laboratory Results - last 24 hr 02/19/19 02/20/19 02/20/19 06:11 04:44 16:58 Nucleated RBC % Sodium 136 136 135 Potassium 3.6 3.2 L 3.4 L Chloride 104 106 105 Carbon Dioxide 26 25 26 Anion Gap 6 5 4 BUN 14 15 13 Creatinine 0.41 L 0.37 L 0.38 L Est GFR ( Amer) 189.6 213.4 207.0 Est GFR (Non-Af Amer) 156.7 176.4 171.0 BUN/Creatinine Ratio 34.1 H 40.5 H 34.2 H Glucose 90 116 H 103 H Calcium 7.9 L 7.8 L 7.8 L Phosphorus 3.5 2.7 Magnesium 1.8 L 1.8 L Total Bilirubin 0.50 0.40 AST 19 16 ALT 10 11 Alkaline Phosphatase 80 70 Troponin I Cancelled 0.01 Total Protein 5.3 L 5.2 L Albumin 2.2 L 2.2 L Globulin 3.1 3.0 Albumin/Globulin Ratio 0.7 L 0.7 L Prealbumin 10 L Triglycerides 115 80 Cholesterol 91 02/21/19 02/21/19 05:35 05:35 WBC 18.3 H RBC 2.89 L Hgb 8.0 L Hct 24 L MCV 84 MCH 28 MCHC 33 RDW 17 H Plt Count 669 H D MPV 7.0 L Neut % (Auto) 86.2 Lymph % (Auto) 5.3 [place] % (Auto) 6.8 Eos % (Auto) 0.9 Baso % (Auto) 0.8 Absolute Neuts (auto) 15.8 H Absolute Lymphs (auto) 1.0 Absolute Monos (auto) 1.2 H Absolute Eos (auto) 0.2 Absolute Basos (auto) 0.1 Absolute Nucleated RBC 0.0 Nucleated RBC % 0.1 Sodium 133 L Potassium 4.0 Chloride 105 Carbon Dioxide 25 Anion Gap 3 BUN 12 Creatinine 0.33 L Est GFR ( Amer) 243.6 Est GFR (Non-Af Amer) 201.3 BUN/Creatinine Ratio 36.4 H Glucose 137 H Calcium 7.9 L Magnesium 1.8 L Troponin I 0.01 Microbiology 02/18/19 13:15 Catheter Tip Culture - Final Catheter Tip Bacillus Sp (Non-Anthracis) 02/15/19 12:35 Gram Stain - Final Abdomen Wound Culture - Final Pseudomonas Aeruginosa Lactobacillus Species 02/08/19 00:00 Anaerobic Culture - Final Body Fluid Bacteroides Fragilis 02/08/19 00:00 Skin and Soft Tissue MRSA/MSSA (PCR - Final Abdomen Mrsa Negative S.aureus Negative Gram Stain - Final Wound Culture - Final Strep Dysgalactiae (Grp C) Pseudomonas Aeruginosa Bacteroides Fragilis 02/08/19 00:25 Nasal Screen MRSA (PCR) - Final Nasal Mrsa Not Detected 02/04/19 12:00 Urine Culture - Final Urine No Growth (<1,000 CFU/mL) Assessment: 1. Peritonitis. Polymicrobial; improving. Afebrile and continues to have persistent leukocytosis but WBC count has been stable. 2. Leukocytosis. Persistent, but stable 3. Colon adenocarcinoma with liver metastases. 4. Anemia. Plan: Discontinue Cefepime and Flagyl.
[2019-02-21] MEDS: TPN* 24 HR with Dextrose 50% Water* 500 ML, Amino Acid Infusion 10%* 850 ML, Sterile Wa... CENTR SCH ×13 (17:28)
--- NOTE | 2019-02-21 17:28 | PN ---
Progress Note - Progress Note Date of Service: 02/21/19 Note: S: States she's doing ok; no sig pain. Continues to improve re: eating and appetite. More flatus and stool per ostomy. See consult from Dr. Waldron last evening. O: Vital Signs - 8 hr 02/21/19 02/21/19 02/21/19 10:25 11:31 15:26 Temperature 97.6 F 97.6 F Pulse Rate 89 95 Respiratory 18 26 22 Rate Blood Pressure 114/54 123/55 (mmHg) O2 Sat by Pulse 100 98 Oximetry 02/21/19 02/21/19 16:17 17:19 Temperature Pulse Rate Respiratory 20 18 Rate Blood Pressure (mmHg) O2 Sat by Pulse Oximetry Intake and Output Last 24 Hours 02/19/19 02/20/19 02/21/19 02/22/19 06:59 06:59 06:59 06:59 Intake Total 555 2649 2750 330 Output Total 1333 1650 2353 2925 Balance -778 999 397 -2595 Weight 121 lb 2 oz 116 lb 9.6 oz 119 lb 11.2 oz 119 lb 11.2 oz Intake: IV Fluids 989 320 ABX - CEFEPIME 50 ABX - FLAGYL 105 NS (0.9%) 60 320 TPN 774 IVPB 115 270 586 ABX - CEFEPIME 55 55 ABX - FLAGYL 105 110 Ferric Gluconase 115 110 110 KCl 311 TPN/PPN 624 Oral 440 1390 1220 330 Output: KATIE #1 8 3 Urine 1325 1550 2300 2825 Nephrostomy #1 0 Colostomy 0 100 50 100 Other: # Bowel Movements 0 Gen: appears comfortable; NAD Heart: reg w/ occ irreg beats Lungs: fairly clear; few coarse rhonchi Abd: midline wound clean; minor fibrinous exudate; ostomy w/ liquid stool; nontender to palp KATIE: small amt clear serous fluid-> d/c'd w/o incident; DSD placed Extr: 1-2 edema w/ anasarca A: s/p sigmoid resection w/ subsequent takedown of anastomosis 2/2 leak; end- colostomy; wound infection, all improving P: discussed w/ Dr. Guillen; will d/c abx; cont TPN (last bag tonight if po intake cont to improve); d/c planning. She is tentatively scheduled for stress test tomorrow. Laboratory Tests Labs: 02/21/19 02/21/19 05:35 05:35 WBC 18.3 H Hgb 8.0 L Potassium 4.0 Magnesium 1.8 L
[2019-02-21] MEDS: HYDROmorphone INJ1* 1 MG/ML SYRINGE IV SLOW PU PRN (21:21)
[2019-02-22] MEDS: LORazepam INJ* 2 MG/ML 1 ML VIAL IV PUSH PRN ×3 (02:14→19:46)
[2019-02-22 05:25] LABS: Albumin 2.3 g/dL (3.2-5.2); Albumin/Globulin Ratio 0.7 (1-3); BUN/Creatinine Ratio 31.6 (8-20); Calcium 8.3 mg/dL (8.6-10.3); Globulin 3.1 g/dL (2-4); Magnesium 1.8 mg/dL (1.9-2.7); Phosphorus 2.5 mg/dL (2.5-5.0); Potassium 4.1 mmol/L (3.5-5.0); Total Bilirubin 0.3 mg/dL (0.2-1.0); Total Protein 5.4 g/dL (6.4-8.9)
[2019-02-22] MEDS ORDERED: Regadenoson* 0.4 MG/5 ML SYRINGE ONE (07:37)
[2019-02-22] MEDS ORDERED: Aminophylline IV* 25 MG/ML 10 ML VIAL ONE (07:37)
[2019-02-22 08:26] LABS: C Reactive Protein 47.93 mg/L (<8.01)
--- NOTE | 2019-02-22 09:37 | PN ---
Progress Note - Progress Note Date of Service: 02/22/19 SOAP: Subjective: [] no complaints, just completed stress echo Objective: [] Temp Pulse Resp BP Pulse Ox 97.9 F 92 16 137/56 99 02/22/19 07:54 02/22/19 07:54 02/22/19 07:54 02/22/19 07:54 02/22/19 07:54 Laboratory Last Values WBC 18.3 10^3/uL (3.5-10.8) H 02/21/19 05:35 RBC 2.89 10^6 /uL (3.70-4.87) L 02/21/19 05:35 Hgb 8.0 g/dL (12.0-16.0) L 02/21/19 05:35 Hct 24 % (35-47) L 02/21/19 05:35 MCV 84 fL (80-97) 02/21/19 05:35 MCH 28 pg (27-31) 02/21/19 05:35 MCHC 33 g/dL (31-36) 02/21/19 05:35 RDW 17 % (10-15) H 02/21/19 05:35 Plt Count 669 10^3/uL (150-450) H D 02/21/19 05:35 MPV 7.0 fL (7.4-10.4) L 02/21/19 05:35 Neut % (Auto) 86.2 % 02/21/19 05:35 Lymph % (Auto) 5.3 % 02/21/19 05:35 [place] % (Auto) 6.8 % 02/21/19 05:35 Eos % (Auto) 0.9 % 02/21/19 05:35 Baso % (Auto) 0.8 % 02/21/19 05:35 Absolute Neuts (auto) 15.8 10^3/ul (1.5-7.7) H 02/21/19 05:35 Absolute Lymphs (auto) 1.0 10^3/ul (1.0-4.8) 02/21/19 05:35 Absolute Monos (auto) 1.2 10^3/ul (0-0.8) H 02/21/19 05:35 Absolute Eos (auto) 0.2 10^3/ul (0-0.6) 02/21/19 05:35 Absolute Basos (auto) 0.1 10^3/ul (0-0.2) 02/21/19 05:35 Absolute Nucleated RBC 0.0 10^3/ul 02/21/19 05:35 Immature Gran % 2.0 % (0-9) 02/18/19 04:50 Neutrophils % 83.0 % 02/18/19 04:50 Band Neutrophils % 2.0 % (0-8) 02/18/19 04:50 Lymphocytes % 11.0 % 02/18/19 04:50 Monocytes % 4.0 % 02/18/19 04:50 Eosinophils % 0.0 % 02/18/19 04:50 Basophils % 0.0 % 02/18/19 04:50 Metamyelocytes % 1.0 % (0-2) 02/13/19 06:20 Myelocytes % 3.0 % (0-1) H 02/08/19 00:05 Nucleated RBC % 0.1 02/21/19 05:35 Abs Neuts (Manual) 10.6 10^3/ul (1.5-7.7) H 02/08/19 05:38 Abs Lymphs (Manual) 0.8 10^3/ul (1.0-4.8) L 02/08/19 05:38 Abs Monocytes (Manual) 0.6 10^3/ul (0-0.8) 02/08/19 05:38 Absolute Eos (Manual) 0.5 10^3/ul (0-0.6) 02/08/19 05:38 Abs Basophils (Manual) 0.0 10^3/ul (0-0.2) 02/08/19 05:38 Normal RBC Morphology Not Reportable 02/18/19 04:50 Polychromasia 1+ 02/19/19 06:11 Hypochromasia 2+ 02/19/19 06:11 Anisocytosis 1+ 02/18/19 04:50 [place] Cells 1+ 02/08/19 05:38 Hem Pathologist Commnt 02/13/19 06:20 INR (Anticoag Therapy) 1.64 (0.82-1.09) H 02/08/19 08:34 APTT 43.1 seconds (26.0-38.0) H 02/08/19 08:34 Patient Temperature Not Reportable 02/08/19 08:05 ABG pH 7.38 (7.35-7.45) 02/08/19 08:05 ABG pH (Temp Correct) Not Reportable 02/08/19 08:05 ABG pCO2 34 mmHg (35-45) L 02/08/19 08:05 ABG pCO2 (Temp Corrct Not Reportable 02/08/19 08:05 ABG pO2 76 mmHg (80-100) L 02/08/19 08:05 ABG pO2 (Temp Correct Not Reportable 02/08/19 08:05 ABG HCO3 21.6 mmol/L (19-31) 02/08/19 08:05 ABG O2 Saturation 96.8 % (94.0-98.0) 02/08/19 08:05 ABG Base Excess -4.2 mmol/L (-2.0-2.0) L 02/08/19 08:05 Respiration Rate Not Reportable 02/08/19 08:05 O2 Delivery Device vent 02/08/19 01:10 Ventilator Type Not Reportable 02/08/19 08:05 Vent Mode cpap 02/08/19 08:05 FiO2 35 02/08/19 08:05 Inspiratory Time Not Reportable 02/08/19 08:05 PEEP 5 02/08/19 08:05 Pressure Support 5 02/08/19 08:05 Pressure Control Not Reportable 02/08/19 08:05 EPAP Not Reportable 02/08/19 08:05 IPAP Not Reportable 02/08/19 08:05 BiPAP Not Reportable 02/08/19 08:05 Sodium 135 mmol/L (135-145) 02/22/19 05:00 Potassium 4.1 mmol/L (3.5-5.0) 02/22/19 05:00 Chloride 105 mmol/L (101-111) 02/22/19 05:00 Carbon Dioxide 27 mmol/L (22-32) 02/22/19 05:00 Anion Gap 3 mmol/L (2-11) 02/22/19 05:00 BUN 12 mg/dL (6-24) 02/22/19 05:00 Creatinine 0.38 mg/dL (0.51-0.95) L 02/22/19 05:00 Est GFR ( Amer) 207.0 (>60) 02/22/19 05:00 Est GFR (Non-Af Amer) 171.0 (>60) 02/22/19 05:00 BUN/Creatinine Ratio 31.6 (8-20) H 02/22/19 05:00 Glucose 103 mg/dL (70-100) H 02/22/19 05:00 POC Glucose (mg/dL) 143 mg/dL (70-100) H 02/21/19 20:37 Lactic Acid 1.8 mmol/L (0.5-2.0) 02/07/19 16:36 Calcium 8.3 mg/dL (8.6-10.3) L 02/22/19 05:00 Phosphorus 2.5 mg/dL (2.5-5.0) 02/22/19 05:00 Magnesium 1.8 mg/dL (1.9-2.7) L 02/22/19 05:00 Iron < 17 ug/dL (50-212) L 02/12/19 06:15 TIBC 204 mcg/dL (250-450) L D 02/12/19 06:15 % Saturation 8 % (15-55) L 02/12/19 06:15 Unsat Iron Binding < 189 ug/dL 02/12/19 06:15 Transferrin 146 mg/dL (203-362) L 02/12/19 06:15 Ferritin 195.3 ng/mL (11-307) 02/12/19 06:15 Total Bilirubin 0.30 mg/dL (0.2-1.0) 02/22/19 05:00 AST 18 U/L (13-39) 02/22/19 05:00 ALT 10 U/L (7-52) 02/22/19 05:00 Alkaline Phosphatase 77 U/L (34-104) 02/22/19 05:00 Troponin I 0.01 ng/mL (<0.04) 02/21/19 05:35 C-Reactive Protein 47.93 mg/L (<8.01) H 02/22/19 05:00 Total Protein 5.4 g/dL (6.4-8.9) L 02/22/19 05:00 Albumin 2.3 g/dL (3.2-5.2) L 02/22/19 05:00 Globulin 3.1 g/dL (2-4) 02/22/19 05:00 Albumin/Globulin Ratio 0.7 (1-3) L 02/22/19 05:00 Prealbumin 12 mg/dL (18-38) L 02/22/19 05:00 Triglycerides 73 mg/dL 02/22/19 05:00 Cholesterol 92 mg/dL 02/22/19 05:00 Urine Color Petra 02/07/19 14:26 Urine Appearance Cloudy 02/07/19 14:26 Urine pH 6.0 (5-9) 02/07/19 14:26 Ur Specific Lookout 1.015 (1.010-1.030) 02/07/19 14:26 Urine Protein Negative (Negative) 02/07/19 14:26 Urine Ketones Negative (Negative) 02/07/19 14:26 Urine Blood Negative (Negative) 02/07/19 14:26 Urine Nitrate Negative (Negative) 02/07/19 14:26 Urine Bilirubin Negative (Negative) 02/07/19 14:26 Urine Urobilinogen Negative (Negative) 02/07/19 14:26 Ur Leukocyte Esterase Negative (Negative) 02/07/19 14:26 Urine WBC (Auto) Trace(0-5/hpf) (Absent) 02/04/19 12:00 Urine RBC (Auto) 1+(3-5/hpf) (Absent) A 02/04/19 12:00 Ur Squamous Epith Cells Present (Absent) A 02/04/19 12:00 Urine Bacteria Absent (Absent) 02/04/19 12:00 Hyaline Casts Present (Absent) A 02/04/19 12:00 Urine Glucose Negative (Negative) 02/07/19 14:26 Vancomycin Trough 2.3 mcg/mL 02/11/19 12:34 large amount stool in ostomy bag wound granulating, some fibrinous exudate bilat le edema Assessment: []stable, improving from gi standpoint cardiology dx pending Plan: []continue tpn for now, calorie counts change to aquacel ag dressings franklyn stockings
[2019-02-22] MEDS: Polyethylene Glycol 3350* 17 GM PACKET PO SCH (10:45)
[2019-02-22] MEDS: Metoprolol Succinate XL TAB* 25 MG PO SCH (10:47)
[2019-02-22] MEDS: Heparin VIAL(*) 5000 UNITS/ML VIAL (FIVE THOUSAND) SUBCUT SCH ×2 (10:48→22:16)
[2019-02-22] MEDS: Famotidine IV* 10 MG/ML 2 ML (20 mg) IV SLOW PU SCH (10:48)
[2019-02-22] MEDS: Potassium Chlor TAB* 10 MEQ TAB.ER PO SCH ×3 (10:48→22:15)
[2019-02-22] MEDS: Aspirin EC TAB* 81 MG TAB.EC PO SCH (10:48)
[2019-02-22] MEDS: Ferric Gluconate IV* 125 MG in NS 0.9% 100 ML* 100 ML IVPB SCH (12:19)
[2019-02-22] MEDS: TPN* 24 HR with Dextrose 50% Water* 500 ML, Amino Acid Infusion 10%* 850 ML, Sterile Wa... CENTR SCH ×13 (17:30)
[2019-02-22] MEDS ORDERED: Magnesium Sulfate IV* 3 GM in NS 0.9% 100 ML* 100 ML IVPB ONE (18:30)
--- NOTE | 2019-02-22 18:37 | PN ---
Subjective Date of Service: 02/22/19 Interval History: f/u arrhythmia patient eating dinner, feels well no cp or dyspnea did not tolerate metoprolol in the past due to severe leg pain Medications Active Medications: Acetaminophen (Tylenol Tab*) 650 mg PO Q4H PRN PRN Reason: mild pain Last Admin: 02/20/19 04:36 Dose: 650 mg Albuterol (Ventolin 2.5 Mg/3 Ml Neb.Dinora*) 2.5 mg INH Q4H PRN PRN Reason: SOB/WHEEZING Atenolol (Tenormin Tab*) 25 mg PO DAILY [facility] Dextrose (D50w Syringe 50 Ml*) 12.5 gm IV PUSH .FOR FS < 60 - SS PRN PRN Reason: FS < 60 Famotidine (Pepcid Iv*) 20 mg IV SLOW PU DAILY [facility] Last Admin: 02/22/19 10:48 Dose: 20 mg Heparin Sodium (Porcine) (Heparin Vial(*)) 5,000 units SUBCUT Q12HR [facility] Last Admin: 02/22/19 10:48 Dose: 5,000 units Heparin Sodium (Porcine) (Heparin Flush Picc/Ml/Cvc(*)) 1 - 3 ml FLUSH 0600, 1800 [facility]; Protocol Last Admin: 02/22/19 18:08 Dose: Not Given Hydromorphone HCl (Dilaudid Inj1s*) 0.5 mg IV SLOW PU Q4H PRN PRN Reason: PAIN Last Admin: 02/21/19 21:21 Dose: 0.5 mg Ferric Sodium Gluconate Complex 125 mg/ Sodium Chloride 110 mls @ 110 mls/hr IVPB DAILY@1100 [facility] Stop: 02/25/19 11:59 Last Admin: 02/22/19 12:19 Dose: 110 mls/hr Dextrose 500 ml/ Amino Acids 850 ml/ Sterile Water 150 ml/Fat Emulsion Intravenous 250 ml/ Sodium Chloride 100 meq/Potassium Chloride 60 meq/Potassium Phosphate 10 mmole/Calcium Gluconate 15 meq/Magnesium Sulfate 20 meq/ Multivitamins 10 ml/ Trace Metals 1 ml/ Phytonadione 0.2 mg/ Nutrition ( Parenteral) 1,856.6174 mls @ 77.359 mls/hr [facility] 1700 [facility]; Protocol Last Admin: 02/22/19 17:30 Dose: 77.359 mls/hr Magnesium Sulfate 3 gm/ Sodium (Chloride) 106 mls @ 53 mls/hr IVPB ONCE ONE Stop: 02/22/19 20:29 Lorazepam (Ativan Inj*) 0.5 mg IV PUSH Q6H PRN PRN Reason: ANXIETY Last Admin: 02/22/19 11:33 Dose: 0.5 mg Miscellaneous (Ativan Pyxis Croft) 1 ea N/A .ATIVAN IV CROFT PRN PRN Reason: PYXIS CROFT Ondansetron HCl (Zofran Inj*) 4 mg IV Q6H PRN PRN Reason: NAUSEA Last Admin: 02/03/19 20:42 Dose: 4 mg Polyethylene Glycol/Electrolytes (Miralax*) 17 gm PO DAILY [facility] Last Admin: 02/22/19 10:45 Dose: 17 gm Potassium Chloride (Klor Con Er Tab*) 10 meq PO TID [facility] Last Admin: 02/22/19 14:18 Dose: 10 meq Objective Vital Signs: Temp Pulse Resp BP Pulse Ox 98 F 92 18 146/67 98 02/22/19 11:34 02/22/19 11:34 02/22/19 17:32 02/22/19 11:34 02/22/19 11:34 Oxygen Devices in Use Now: Nasal Cannula Appearance: pleasant, nad Neck: Trachea Midline Respiratory: Symmetrical Chest Expansion and Respiratory Effort, - - decreased bs Cardiovascular: RRR Abdominal: - - no rigidity Neurological: Alert and Oriented x 3 Laboratory Results: 02/21/19 05:35 02/22/19 05:00 INR (Anticoag Therapy) 1.64 (0.82-1.09) H 02/08/19 08:34 APTT 43.1 seconds (26.0-38.0) H 02/08/19 08:34 Total Bilirubin 0.30 mg/dL (0.2-1.0) 02/22/19 05:00 AST 18 U/L (13-39) 02/22/19 05:00 ALT 10 U/L (7-52) 02/22/19 05:00 Alkaline Phosphatase 77 U/L (34-104) 02/22/19 05:00 Total Protein 5.4 g/dL (6.4-8.9) L 02/22/19 05:00 Albumin 2.3 g/dL (3.2-5.2) L 02/22/19 05:00 Globulin 3.1 g/dL (2-4) 02/22/19 05:00 Albumin/Globulin Ratio 0.7 (1-3) L 02/22/19 05:00 Triglycerides 73 mg/dL 02/22/19 05:00 Cholesterol 92 mg/dL 02/22/19 05:00 02/07/19 02/19/19 02/20/19 14:37 06:11 04:44 Troponin I 0.01 Cancelled 0.01 02/21/19 05:35 Troponin I 0.01 Diagnostic Imaging: Exam Date: 02/22/19 0729 NUCLEAR CARDIAC STRESS TEST EF: 64% TID: 1.17 MOTION: There is dyskinesia. PERFUSION: There are no fixed or reversible perfusion defects. OTHER: There are moderate to large bilateral pleural effusions. IMPRESSION: 1. NO FIXED OR REVERSIBLE PERFUSION DEFECTS. 2. BILATERAL PLEURAL EFFUSIONS. Transthoracic Echocardiogram Study Date: 02/20/2019 Conclusions Summary: 1. Left ventricle: Systolic function is mildly to moderately reduced. The estimated ejection fraction is 40-45%, by visual assessment. Features are consistent with a pseudonormal left ventricular filling pattern, with concomitant abnormal relaxation and increased filling pressure (grade 2 diastolic dysfunction). 2. Right ventricle: Systolic function is mildly reduced. 3. Left atrium: The atrium is moderately dilated. 4. Right atrium: The atrium is moderately dilated. 5. Mitral valve: There is moderate regurgitation, with multiple jets. 6. Aortic valve: There is moderate regurgitation. 7. Tricuspid valve: There is trace to mild regurgitation. 8. Pericardium, extracardiac: A moderate, partially loculated pericardial effusion is identified circumferential to the heart. There is no evidence of hemodynamic compromise. There is a left pleural effusion. Assessment/Plan 63-year-old woman with colon cancer, who was admitted for resection of a colon cancer (with reported liver mets) and repair of a rectovaginal fistula. She has had a complicated course including suture leak and reoperation for peritonitis with purulent material. Her course has been complicated by hypotension and arrhythmias. She has had SVT, APCs as well as what appeared to be a run of wide complex tachycardia for 20 beats on 02/17/19 at 10:19. She has been asymptomatic. She also has had multiple electrolyte abnormalities and required TPN now eating food. Other co-morbidities - history of tobacco use of a pack per day for 40 years, discontinued on . - hypertension - hyperlipidemia - mild carotid disease - copd - anemia Stress test today is normal Unsure if pleural and pericardial effusion related to low albumin, anemia, CHF or metastatic disease or combination Restart home statin (ordered) She did not tolerate metoprolol in the past due to severe leg pain will change to atenolol (ordered) restart home statin (ordered) give 3 mg iv mg x 1 now (ordered) and recheck level tomorrow (ordered). keep mg 2 or greater and k 4. or greater check bnp tomorrow (ordered) I held the aspirin for now given recent surgeries. If no contraindication this can be restarted prior to discharge continue dvt prophylaxis
[2019-02-22] MEDS: CMCS: Rosuvastatin (NF) 20 MG TAB PO SCH (22:27)
[2019-02-23] MEDS: Atenolol TAB* 25 MG PO SCH (08:54)
[2019-02-23] MEDS: Potassium Chlor TAB* 10 MEQ TAB.ER PO SCH ×3 (08:54→19:56)
[2019-02-23] MEDS: Polyethylene Glycol 3350* 17 GM PACKET PO SCH (08:55)
[2019-02-23] MEDS: Heparin VIAL(*) 5000 UNITS/ML VIAL (FIVE THOUSAND) SUBCUT SCH (08:56)
[2019-02-23] MEDS: Famotidine IV* 10 MG/ML 2 ML (20 mg) IV SLOW PU SCH (08:59)
--- NOTE | 2019-02-23 10:33 | PN ---
Progress Note - Progress Note Date of Service: 02/23/19 SOAP: Subjective: []"ate a big breakfast!" Objective: [] Temp Pulse Resp BP Pulse Ox 98.4 F 94 18 150/66 94 02/23/19 07:16 02/23/19 08:00 02/23/19 08:00 02/23/19 07:16 02/23/19 08:00 abdomen soft, wound clean Assessment: []stable, improving Plan: []dc tpn cont same, home soon
[2019-02-23] MEDS: Ferric Gluconate IV* 125 MG in NS 0.9% 100 ML* 100 ML IVPB SCH (11:14)
[2019-02-23] MEDS: TPN* 24 HR with Dextrose 50% Water* 500 ML, Amino Acid Infusion 10%* 850 ML, Sterile Wa... CENTR SCH ×13 (17:36)
--- NOTE | 2019-02-23 18:35 | PN ---
Subjective Date of Service: 02/23/19 Interval History: f/u arrhythmia, volume overload with pericardial effusion, moderate mr/ai patient eating dinner, feels good at bedside no cp or dyspnea BNP high but patient auto-diuresing extremely well would not add diuretic Medications Active Medications: Acetaminophen (Tylenol Tab*) 650 mg PO Q4H PRN PRN Reason: mild pain Last Admin: 02/20/19 04:36 Dose: 650 mg Albuterol (Ventolin 2.5 Mg/3 Ml Neb.Dinora*) 2.5 mg INH Q4H PRN PRN Reason: SOB/WHEEZING Atenolol (Tenormin Tab*) 25 mg PO DAILY [facility] Last Admin: 02/23/19 08:54 Dose: 25 mg Dextrose (D50w Syringe 50 Ml*) 12.5 gm IV PUSH .FOR FS < 60 - SS PRN PRN Reason: FS < 60 Famotidine (Pepcid Iv*) 20 mg IV SLOW PU DAILY [facility] Last Admin: 02/23/19 08:59 Dose: 20 mg Heparin Sodium (Porcine) (Heparin Flush Picc/Ml/Cvc(*)) 1 - 3 ml FLUSH 0600, 1800 [facility]; Protocol Last Admin: 02/23/19 17:03 Dose: 1 ml Hydromorphone HCl (Dilaudid Inj1s*) 0.5 mg IV SLOW PU Q4H PRN PRN Reason: PAIN Last Admin: 02/21/19 21:21 Dose: 0.5 mg Ferric Sodium Gluconate Complex 125 mg/ Sodium Chloride 110 mls @ 110 mls/hr IVPB DAILY@1100 [facility] Stop: 02/25/19 11:59 Last Admin: 02/23/19 11:14 Dose: 110 mls/hr Lorazepam (Ativan Inj*) 0.5 mg IV PUSH Q6H PRN PRN Reason: ANXIETY Last Admin: 02/22/19 19:46 Dose: 0.5 mg Miscellaneous (Ativan Pyxis Croft) 1 ea N/A .ATIVAN IV CROFT PRN PRN Reason: PYXIS CROFT Ondansetron HCl (Zofran Inj*) 4 mg IV Q6H PRN PRN Reason: NAUSEA Last Admin: 02/03/19 20:42 Dose: 4 mg Polyethylene Glycol/Electrolytes (Miralax*) 17 gm PO DAILY [facility] Last Admin: 02/23/19 08:55 Dose: 17 gm Potassium Chloride (Klor Con Er Tab*) 10 meq PO TID [facility] Last Admin: 02/23/19 14:12 Dose: 10 meq Rosuvastatin Calcium (Crestor (Nf)) 20 mg PO BEDTIME [facility] Last Admin: 02/22/19 22:27 Dose: 20 mg Objective Vital Signs: Temp Pulse Resp BP Pulse Ox 99.5 F 88 16 120/52 94 02/23/19 15:13 02/23/19 15:13 02/23/19 15:13 02/23/19 15:13 02/23/19 15:13 Oxygen Devices in Use Now: None Appearance: pleasant, nad Neck: Trachea Midline Respiratory: Symmetrical Chest Expansion and Respiratory Effort, - - decreased bs bases Cardiovascular: RRR Abdominal: - - no rigidity Extremities: - - 2+ edema Neurological: Alert and Oriented x 3 Laboratory Results: 02/21/19 05:35 02/22/19 05:00 INR (Anticoag Therapy) 1.64 (0.82-1.09) H 02/08/19 08:34 APTT 43.1 seconds (26.0-38.0) H 02/08/19 08:34 Total Bilirubin 0.30 mg/dL (0.2-1.0) 02/22/19 05:00 AST 18 U/L (13-39) 02/22/19 05:00 ALT 10 U/L (7-52) 02/22/19 05:00 Alkaline Phosphatase 77 U/L (34-104) 02/22/19 05:00 B-Natriuretic Peptide > 1300 pg/mL (<=100) H 02/23/19 05:10 Total Protein 5.4 g/dL (6.4-8.9) L 02/22/19 05:00 Albumin 2.3 g/dL (3.2-5.2) L 02/22/19 05:00 Globulin 3.1 g/dL (2-4) 02/22/19 05:00 Albumin/Globulin Ratio 0.7 (1-3) L 02/22/19 05:00 Triglycerides 73 mg/dL 02/22/19 05:00 Cholesterol 92 mg/dL 02/22/19 05:00 02/07/19 02/19/19 02/20/19 14:37 06:11 04:44 Troponin I 0.01 Cancelled 0.01 02/21/19 05:35 Troponin I 0.01 mg this AM 1.9 Diagnostic Imaging: Exam Date: 02/22/19 0729 NUCLEAR CARDIAC STRESS TEST EF: 64% TID: 1.17 MOTION: There is dyskinesia. PERFUSION: There are no fixed or reversible perfusion defects. OTHER: There are moderate to large bilateral pleural effusions. IMPRESSION: 1. NO FIXED OR REVERSIBLE PERFUSION DEFECTS. 2. BILATERAL PLEURAL EFFUSIONS. Transthoracic Echocardiogram Study Date: 02/20/2019 Conclusions Summary: 1. Left ventricle: Systolic function is mildly to moderately reduced. The estimated ejection fraction is 40-45%, by visual assessment. Features are consistent with a pseudonormal left ventricular filling pattern, with concomitant abnormal relaxation and increased filling pressure (grade 2 diastolic dysfunction). 2. Right ventricle: Systolic function is mildly reduced. 3. Left atrium: The atrium is moderately dilated. 4. Right atrium: The atrium is moderately dilated. 5. Mitral valve: There is moderate regurgitation, with multiple jets. 6. Aortic valve: There is moderate regurgitation. 7. Tricuspid valve: There is trace to mild regurgitation. 8. Pericardium, extracardiac: A moderate, partially loculated pericardial effusion is identified circumferential to the heart. There is no evidence of hemodynamic compromise. There is a left pleural effusion. Assessment/Plan 63-year-old woman with colon cancer, who was admitted for resection of a colon cancer (with reported liver mets) and repair of a rectovaginal fistula. She has had a complicated course including suture leak and reoperation for peritonitis with purulent material. Her course has been complicated by hypotension and arrhythmias. She has had SVT, APCs as well as what appeared to be a run of wide complex tachycardia for 20 beats on 02/17/19 at 10:19. She has been asymptomatic. She also has had multiple electrolyte abnormalities and required TPN now eating food. stress test 02/22/2019 normal Other co-morbidities - history of tobacco use of a pack per day for 40 years, discontinued on . - hypertension - hyperlipidemia - mild carotid disease - copd - anemia Unsure if pleural and pericardial effusion related to low albumin, anemia, CHF or metastatic disease or combination. She is autodiuresing well would hold off on diuretic for now. Continue home statin She did not tolerate metoprolol in the past due to severe leg pain. Continue atenolol 25 mg po daily Start daily magnesium oxide 400 mg po daily to help keep levels up and prevent arrhythmias (ordered) Does not need to restart lisinopril at discharge Ok to continue to withhold aspirin continue dvt prophylaxis
[2019-02-23] MEDS: CMCS: Rosuvastatin (NF) 20 MG TAB PO SCH (19:57)
[2019-02-23] MEDS: LORazepam INJ* 2 MG/ML 1 ML VIAL IV PUSH PRN (19:57)
[2019-02-24] MEDS: LORazepam INJ* 2 MG/ML 1 ML VIAL IV PUSH PRN ×3 (02:00→19:26)
[2019-02-24] MEDS: Potassium Chlor TAB* 10 MEQ TAB.ER PO SCH ×3 (08:33→19:26)
[2019-02-24] MEDS: Atenolol TAB* 25 MG PO SCH (08:33)
[2019-02-24] MEDS: Polyethylene Glycol 3350* 17 GM PACKET PO SCH (08:33)
[2019-02-24] MEDS: Magnesium Oxide TAB* 400 MG PO SCH (08:33)
[2019-02-24] MEDS: Famotidine IV* 10 MG/ML 2 ML (20 mg) IV SLOW PU SCH (08:33)
--- NOTE | 2019-02-24 10:57 | PN ---
Subjective Date of Service: 02/24/19 Interval History: f/u arrhythmia, volume overload with pericardial effusion, moderate mr/ai patient feels great this morning up and out of bed to bathroom at bedside no cp or dyspnea continues auto-diuresis very frequently Medications Active Medications: Acetaminophen (Tylenol Tab*) 650 mg PO Q4H PRN PRN Reason: mild pain Last Admin: 02/20/19 04:36 Dose: 650 mg Albuterol (Ventolin 2.5 Mg/3 Ml Neb.Dinora*) 2.5 mg INH Q4H PRN PRN Reason: SOB/WHEEZING Atenolol (Tenormin Tab*) 25 mg PO DAILY [facility] Last Admin: 02/24/19 08:33 Dose: 25 mg Dextrose (D50w Syringe 50 Ml*) 12.5 gm IV PUSH .FOR FS < 60 - SS PRN PRN Reason: FS < 60 Famotidine (Pepcid Iv*) 20 mg IV SLOW PU DAILY [facility] Last Admin: 02/24/19 08:33 Dose: 20 mg Heparin Sodium (Porcine) (Heparin Flush Picc/Ml/Cvc(*)) 1 - 3 ml FLUSH 0600, 1800 [facility]; Protocol Last Admin: 02/24/19 05:01 Dose: Not Given Hydromorphone HCl (Dilaudid Inj1s*) 0.5 mg IV SLOW PU Q4H PRN PRN Reason: PAIN Last Admin: 02/21/19 21:21 Dose: 0.5 mg Ferric Sodium Gluconate Complex 125 mg/ Sodium Chloride 110 mls @ 110 mls/hr IVPB DAILY@1100 [facility] Stop: 02/25/19 11:59 Last Admin: 02/23/19 11:14 Dose: 110 mls/hr Lorazepam (Ativan Inj*) 0.5 mg IV PUSH Q6H PRN PRN Reason: ANXIETY Last Admin: 02/24/19 09:59 Dose: 0.5 mg Magnesium Oxide (Magox 400 Tab*) 400 mg PO DAILY [facility] Last Admin: 02/24/19 08:33 Dose: 400 mg Miscellaneous (Ativan Pyxis Croft) 1 ea N/A .ATIVAN IV CROFT PRN PRN Reason: PYXIS CROFT Ondansetron HCl (Zofran Inj*) 4 mg IV Q6H PRN PRN Reason: NAUSEA Last Admin: 02/03/19 20:42 Dose: 4 mg Polyethylene Glycol/Electrolytes (Miralax*) 17 gm PO DAILY [facility] Last Admin: 02/24/19 08:33 Dose: 17 gm Potassium Chloride (Klor Con Er Tab*) 10 meq PO TID [facility] Last Admin: 02/24/19 08:33 Dose: 10 meq Rosuvastatin Calcium (Crestor (Nf)) 20 mg PO BEDTIME [facility] Last Admin: 02/23/19 19:57 Dose: 20 mg Objective Vital Signs: Temp Pulse Resp BP Pulse Ox 99.8 F 96 16 129/62 94 02/24/19 07:11 02/24/19 07:11 02/24/19 09:59 02/24/19 07:11 02/24/19 07:11 Oxygen Devices in Use Now: None Appearance: pleasant, nad Neck: Trachea Midline Respiratory: Symmetrical Chest Expansion and Respiratory Effort, - - minimal decreaed bs at bases, no rales Cardiovascular: RRR Abdominal: - - no rigidity Extremities: - - 1-2+ edema, improved Neurological: Alert and Oriented x 3 Laboratory Results: 02/21/19 05:35 02/22/19 05:00 INR (Anticoag Therapy) 1.64 (0.82-1.09) H 02/08/19 08:34 APTT 43.1 seconds (26.0-38.0) H 02/08/19 08:34 Total Bilirubin 0.30 mg/dL (0.2-1.0) 02/22/19 05:00 AST 18 U/L (13-39) 02/22/19 05:00 ALT 10 U/L (7-52) 02/22/19 05:00 Alkaline Phosphatase 77 U/L (34-104) 02/22/19 05:00 B-Natriuretic Peptide > 1300 pg/mL (<=100) H 02/23/19 05:10 Total Protein 5.4 g/dL (6.4-8.9) L 02/22/19 05:00 Albumin 2.3 g/dL (3.2-5.2) L 02/22/19 05:00 Globulin 3.1 g/dL (2-4) 02/22/19 05:00 Albumin/Globulin Ratio 0.7 (1-3) L 02/22/19 05:00 Triglycerides 73 mg/dL 02/22/19 05:00 Cholesterol 92 mg/dL 02/22/19 05:00 02/07/19 02/19/19 02/20/19 14:37 06:11 04:44 Troponin I 0.01 Cancelled 0.01 02/21/19 05:35 Troponin I 0.01 Diagnostic Imaging: Exam Date: 02/22/19 0729 NUCLEAR CARDIAC STRESS TEST EF: 64% TID: 1.17 MOTION: There is dyskinesia. PERFUSION: There are no fixed or reversible perfusion defects. OTHER: There are moderate to large bilateral pleural effusions. IMPRESSION: 1. NO FIXED OR REVERSIBLE PERFUSION DEFECTS. 2. BILATERAL PLEURAL EFFUSIONS. Transthoracic Echocardiogram Study Date: 02/20/2019 Conclusions Summary: 1. Left ventricle: Systolic function is mildly to moderately reduced. The estimated ejection fraction is 40-45%, by visual assessment. Features are consistent with a pseudonormal left ventricular filling pattern, with concomitant abnormal relaxation and increased filling pressure (grade 2 diastolic dysfunction). 2. Right ventricle: Systolic function is mildly reduced. 3. Left atrium: The atrium is moderately dilated. 4. Right atrium: The atrium is moderately dilated. 5. Mitral valve: There is moderate regurgitation, with multiple jets. 6. Aortic valve: There is moderate regurgitation. 7. Tricuspid valve: There is trace to mild regurgitation. 8. Pericardium, extracardiac: A moderate, partially loculated pericardial effusion is identified circumferential to the heart. There is no evidence of hemodynamic compromise. There is a left pleural effusion. Assessment/Plan 63-year-old woman with colon cancer, who was admitted for resection of a colon cancer (with reported liver mets) and repair of a rectovaginal fistula. She has had a complicated course including suture leak and reoperation for peritonitis with purulent material. Her course has been complicated by hypotension and arrhythmias. She has had SVT, APCs as well as what appeared to be a run of wide complex tachycardia for 20 beats on 02/17/19 at 10:19. She has been asymptomatic. She also has had multiple electrolyte abnormalities and required TPN now eating food. stress test 02/22/2019 normal Other co-morbidities - history of tobacco use of a pack per day for 40 years, discontinued on . - hypertension - hyperlipidemia - mild carotid disease - copd - anemia Unsure if pleural and pericardial effusion related to low albumin, anemia, CHF or metastatic disease or combination. She is autodiuresing well would hold off on diuretic for now. Would keep K 4 or greater and Mg 2 or greater Continue home statin She did not tolerate metoprolol in the past due to severe leg pain. Continue atenolol 25 mg po daily Start daily magnesium oxide 400 mg po daily Does not need to restart lisinopril at discharge Ok to continue to withhold aspirin continue dvt prophylaxis
--- NOTE | 2019-02-24 11:28 | PN ---
Progress Note - Progress Note Date of Service: 02/24/19 SOAP: Subjective: [] feel great! Objective: [] Temp Pulse Resp BP Pulse Ox 99.8 F 96 16 129/62 94 02/24/19 07:11 02/24/19 07:11 02/24/19 11:26 02/24/19 07:11 02/24/19 07:11 abdomen soft, wound stable, granulating Assessment: [] stable, improving Plan: []cont same
[2019-02-24] MEDS: Ferric Gluconate IV* 125 MG in NS 0.9% 100 ML* 100 ML IVPB SCH (11:31)
[2019-02-24] MEDS: CMCS: Rosuvastatin (NF) 20 MG TAB PO SCH (19:26)
[2019-02-24] MEDS: Acetaminophen TAB* 325 MG PO PRN (23:17)
[2019-02-25] MEDS: LORazepam INJ* 2 MG/ML 1 ML VIAL IV PUSH PRN (01:36)
[2019-02-25] MEDS: Acetaminophen TAB* 325 MG PO PRN ×2 (04:55→09:44)
[2019-02-25] MEDS: Atenolol TAB* 25 MG PO SCH (09:37)
[2019-02-25] MEDS: Magnesium Oxide TAB* 400 MG PO SCH (09:37)
[2019-02-25] MEDS: Potassium Chlor TAB* 10 MEQ TAB.ER PO SCH (09:37)
[2019-02-25] MEDS: Polyethylene Glycol 3350* 17 GM PACKET PO SCH (09:37)
[2019-02-25] MEDS: Famotidine IV* 10 MG/ML 2 ML (20 mg) IV SLOW PU SCH (09:37)
--- NOTE | 2019-02-25 10:44 | PN ---
Progress Note - Progress Note Date of Service: 02/25/19 SOAP: Subjective:wants to go home,good appetite,feels comfortable with ostomy and wound care [] Objective: Vital Signs Temp 98.9 F 02/25/19 07:25 Pulse 92 02/25/19 07:25 Resp 17 02/25/19 07:25 BP 115/50 02/25/19 07:25 Pulse Ox 93 02/25/19 07:25 Intake & Output 02/24/19 02/25/19 02/25/19 18:59 06:59 18:59 Intake Total 240 500 Output Total 700 1200 200 Balance -460 -700 -200 Weight 111 lb 111 lb 6.4 oz Intake: Oral 240 500 Output: Urine 700 1200 200 Other: # Bowel Movements 0 0 lungs:clear bilat;heart:RRR;abd:+bs;soft,nondistended;ostomy with gas and stool; midline incision open,Dr Guillen debrided fibrinous exudate and redressed with NS moistened Aquacel and 4x4s and reviewed care with pt ;ext:TEDs on , minimal edema,nomtender calves [] Assessment:s/p lap assisted sigmoid colectomy for colon cancer 01/31/19,return to OR 02/07 for ex lap for leak,colostomy doing well now,stable for discharge [] Plan:Discharge home today;instructions reviewed with patient and ;RX for Atenolol,Mag OX and Lorazepam;previous home meds reviewed;office followup with Dr Mindy Ervin 03/05/19 at 0930 at [facility] Time spent:60 minutes with>50% in face to face pt exam and education and coordination of care []
[2019-02-25 11:18] VITALS: BP 119/56
[2019-02-25] MEDS ORDERED: Atorvastatin* 40 MG TAB PO SCH (18:00)
[2019-02-26] MEDS ORDERED: Vitamin THERAPEUTIC TAB PO SCH (08:30)
== END 2019-02-25 12:10 | disposition home or self-care (01) | DRG 221 ==
LOC: AA 05:27 → SSU 09:46 → ICU 02-07 22:39 → SSU 02-10 10:11
PROVIDERS: ADMIT Surgery; ATTEND Surgery
PROC: 0UBG4ZZ Excision of Vagina, Percutaneous Endoscopic Approach (ICD-10-PCS; 2019-01-31)
PROC: 0DTN4ZZ Resection of Sigmoid Colon, Percutaneous Endoscopic Approach (ICD-10-PCS; principal; 2019-01-31 07:30)
PROC: 0D1N0Z4 Bypass Sigmoid Colon to Cutaneous, Open Approach (ICD-10-PCS; 2019-02-07)
PROC: 0DTJ0ZZ Resection of Appendix, Open Approach (ICD-10-PCS; 2019-02-07)
PROC: 0W9G0ZZ Drainage of Peritoneal Cavity, Open Approach (ICD-10-PCS; 2019-02-07)
PROC: 0BH17EZ Insertion of Endotracheal Airway into Trachea, Via Natural or Artificial Opening (ICD-10-PCS; 2019-02-07)
PROC: 5A1935Z Respiratory Ventilation, Less than 24 Consecutive Hours (ICD-10-PCS; 2019-02-07)
PROC: 3E0336Z Introduction of Nutritional Substance into Peripheral Vein, Percutaneous Approach (ICD-10-PCS; 2019-02-08)
PROC: 3E033XZ Introduction of Vasopressor into Peripheral Vein, Percutaneous Approach (ICD-10-PCS; 2019-02-08)
DX: C18.7 Malignant neoplasm of sigmoid colon (principal); K55.049 Acute infarction of large intestine, extent unspecified; K65.0 Generalized (acute) peritonitis; R65.21 Severe sepsis with septic shock; K63.1 Perforation of intestine (nontraumatic); J96.92 Respiratory failure, unspecified with hypercapnia; J96.01 Acute respiratory failure with hypoxia; A41.9 Sepsis, unspecified organism; N82.3 Fistula of vagina to large intestine; C78.7 Secondary malignant neoplasm of liver and intrahepatic bile duct; I31.3 Pericardial effusion (noninflammatory); J90 Pleural effusion, not elsewhere classified; K91.89 Other postprocedural complications and disorders of digestive system; I47.1 Supraventricular tachycardia; K56.7 Ileus, unspecified; E87.1 Hypo-osmolality and hyponatremia; J44.9 Chronic obstructive pulmonary disease, unspecified; I10 Essential (primary) hypertension; M19.90 Unspecified osteoarthritis, unspecified site; F17.210 Nicotine dependence, cigarettes, uncomplicated; B95.4 Other streptococcus as the cause of diseases classified elsewhere; B96.6 Bacteroides fragilis [B. fragilis] as the cause of diseases classified elsewhere; D50.9 Iron deficiency anemia, unspecified; I08.1 Rheumatic disorders of both mitral and tricuspid valves; E78.5 Hyperlipidemia, unspecified; E87.6 Hypokalemia; E83.42 Hypomagnesemia; I95.9 Hypotension, unspecified; Y83.2 Surgical operation with anastomosis, bypass or graft as the cause of abnormal reaction of the patient, or of later complication, without mention of misadventure at the time of the procedure; Y92.239 Unspecified place in hospital as the place of occurrence of the external cause; E88.09 Other disorders of plasma-protein metabolism, not elsewhere classified; E87.5 Hyperkalemia; K37 Unspecified appendicitis; Z82.49 Family history of ischemic heart disease and other diseases of the circulatory system; Z72.89 Other problems related to lifestyle; Z80.0 Family history of malignant neoplasm of digestive organs; Z82.5 Family history of asthma and other chronic lower respiratory diseases
CPT/HCPCS: 36415; 36600; 71045; 71046; 74177; 78452; 80048; 80053; 80202; 81003; 81015; 82465; 82728; 82803; 83540; 83550; 83605; 83735; 83880; 84100; 84134; 84478; 84484; 85025; 85060; 85610; 85730; 86140; 87070; 87071; 87073; 87076; 87077; 87086; 87185; 87186; 87205; 87640; 87641; 88304; 88305; 88307; 88309; 93005; 93017; 93306; 94002; 99232; 99233; A9270-GY; A9502; C1751; J0280; J0360; J0692; J0694; J0780; J1100; J1170; J1644; J1756; J1885; J1940; J2060; J2250; J2270; J2405; J2704; J2710; J2785; J2916; J2997; J3010; J3370; J3475; J3480; J3490; Q9967

== ENCOUNTER → 2019-05-13 05:59 | Day surgery (SDC) | payer BC ==
[~2019-05-13 05:59] MED LIST changes: +Bupivacaine 0.25% SDV PF* 10 ML VIAL INJ ONE; +Lactated Ringers 1000 ML Bag* 1,000 ML IV SCH; +Midazolam* 1 MG/ML 5 ML VIAL (5 MG) ONE; +Naloxone* 0.4 MG/ML 1 ML VIAL IV PRN; +Ondansetron INJ* 2 MG/ML VIAL IV PRN; -Ondansetron TAB* 4 MG ONE; +ceFAZolin 2 GM in NS PREMIX(*) 2 GM/100 ML BAG IVPB ONE; +fentaNYL* 50 MCG/ML 2 ML VIAL (100 MCG VIAL) IV PRN; +fentaNYL* 50 MCG/ML 2 ML VIAL (100 MCG VIAL) ONE
[2019-05-13 08:56] VITALS: BP 140/70
--- NOTE | 2019-05-13 09:06 | OP ---
DATE OF OPERATION: 05/13/19 - [facility] DATE OF : 55 SURGEON: Venkat Guillen MD PRE-OP DIAGNOSIS: Colon cancer. POST-OP DIAGNOSIS: Colon cancer. OPERATIVE PROCEDURE: Placement of PowerPort, left subclavian approach. INDICATION FOR PROCEDURE: Requiring treatment for colon cancer. Risks including but not limited to bleeding, infection, and pneumothorax were explained to the patient, who seemed to understand and agreed to the procedure and all questions were answered. DESCRIPTION OF PROCEDURE: The patient was taken to the operating room and placed supine. Preoperative antibiotics were given. After sedation was given, time-out was performed after she was prepped and draped in sterile fashion, thus indicating correct patient getting the correct procedure. She was placed in a Trendelenburg position. The subclavicular skin was anesthetized with plain Marcaine. A needle was placed in the left subclavian vein and a wire was advanced through the needle. The needle was removed. The wire was in good position in the superior vena cava noted on fluoroscopy. The tract was dilated. A split sheath was placed and the wire was removed. The catheter was advanced through the split sheath towards the superior vena cava, checked by fluoroscopy. The catheter was tunneled under the skin to a subcutaneous pocket and connected to the PowerPort, which aspirated blood easily and flushed nicely. The subcutaneous tissue and skin were closed with Monocryl. Glue was applied to the skin. She tolerated the procedure well. [id number]/CPS #: [id number] MTDD
== END | disposition home or self-care (01) ==
LOC: OR 05:59
PROVIDERS: ATTEND Surgery
DX: C18.9 Malignant neoplasm of colon, unspecified (principal); I10 Essential (primary) hypertension; E78.5 Hyperlipidemia, unspecified
CPT/HCPCS: 71045; 76000; C1788; J0690; J1642; J2250; J3010; J3490

== ENCOUNTER 2021-10-08 11:20 | Observation (INO) ==
[2021-10-08] MEDS ORDERED: DOXORUBICIN IVPB ONE (11:30)
[2021-10-08] MEDS ORDERED: Ondansetron 4 mg VIAL 2 MG/ML 2 ml VIAL ONE (12:19)
[2021-10-08] MEDS ORDERED: Nitro 2% OINT (Nitroglycerin) 1 INCH/PAK ONE ×2 (12:19→12:24)
[2021-10-08] MEDS ORDERED: Lidocaine 1% VIAL 10 MG/ML VIAL ONE (12:36)
[2021-10-08] MEDS ORDERED: Iohexol 350 (CONTRAST) 200 ML MDV IV ONE (12:36)
[2021-10-08] MEDS ORDERED: Heparin 2 UNITS/ML IVPREMIX 3,000 UNIT/1,500 ML BAG IV ONE (12:37)
[2021-10-08] MEDS ORDERED: Heparin 1,000 UNIT/ML 10 ml (10,000 UNITS) CATHLAB/DIALYSIS ONE (12:53)
[2021-10-08] MEDS ORDERED: VERAPAMIL 2.5 MG/ML 2 ML VIAL ** 5 mg/2 ml ONE (12:54)
[2021-10-08] MEDS ORDERED: nitroGLYCERIN DRIP 25,000 MCG/250 ML BTL ONE (12:54)
[2021-10-08] MEDS ORDERED: Heparin 2 UNITS/ML IVPREMIX 1,000 UNIT/500 ML BAG IV ONE (12:55)
[2021-10-08] MEDS ORDERED: Midazolam 5 mg/5 ml VIAL 1 mg/ml 5 ml VIAL (5 mg) ONE (13:03)
[2021-10-08] MEDS ORDERED: fentaNYL 100 mcg/2 ml 50 MCG/ML VIAL ONE ×3 (13:03→15:56)
[2021-10-08] MEDS ORDERED: HYDROmorphone PCA 1 MG/ML Titrat per Protocol PCA SCH (14:00)
[2021-10-08] MEDS ORDERED: Ondansetron 4 mg VIAL 2 MG/ML 2 ml VIAL IV PRN (14:35)
[2021-10-08] MEDS ORDERED: NS 0.9% 1000 ml BAG 1,000 ML IV SCH (17:00)
[2021-10-09] MEDS: Albuterol/Ipratropium NEB.SOL (2.5/0.5 MG) 3 ML NEB.SOLN INH SCH ×2 (00:38→03:09)
[2021-10-09 05:15] LABS: ABS Basophils 0.1 10^3/ul (0-0.2); ABS Eosinophils 0.4 10^3/ul (0-0.6); ABS Lymphocytes 0.6 10^3/ul (1.0-4.8); ABS Monocytes 0.8 10^3/ul (0-0.8); Eosinophil % 4.7 %; Hematocrit 35 % (35-47); Hemoglobin 11.9 g/dL (12.0-16.0); Lymphocyte % 7.3 %; Mean Corpuscular HGB Conc 34 g/dL (31-36); Mean Corpuscular Hemoglobin 29 pg (27-31); Mean Corpuscular Volume 87 fL (80-97); Mean Platelet Volume 6.7 fL (7.4-10.4); Platelet Count 184 10^3/uL (150-450); Red Blood Count 4.09 10^6 /uL (3.70-4.87); Red Cell Distribution Width 16 % (10-15); White Blood Count 7.8 10^3/uL (3.5-10.8)
[2021-10-09] MEDS ORDERED: Albuterol HFA INHALER 8 gm MDI INH SCH (07:00)
[2021-10-09] MEDS ORDERED: SPIRIVA Respimat (tiotropium) 2.5 mcg/inh Inhaler INH SCH (09:00)
[2021-10-09 14:49] VITALS: BP 133/63
== END 2021-10-09 13:00 | disposition home or self-care (01) ==
LOC: CHICATH 11:20 → SSU 11:20
PROVIDERS: ADMIT Internal Medicine Hematology & Oncology; ATTEND Internal Medicine Hematology & Oncology

== ENCOUNTER 2022-04-17 08:08 | Inpatient (IN) ==
[2022-04-17] MEDS ORDERED: NS 0.9% 1000 ml BAG 1,000 ML IV ONE (08:43)
[2022-04-17 09:34] LABS: Hematocrit 30 % (35-47); Hemoglobin 10.2 g/dL (12.0-16.0); Mean Corpuscular HGB Conc 34 g/dL (31-36); Mean Corpuscular Hemoglobin 29 pg (27-31); Mean Corpuscular Volume 86 fL (80-97); Mean Platelet Volume 7.6 fL (7.4-10.4); Platelet Count 132 10^3/uL (150-450); Red Blood Count 3.54 10^6 /uL (3.70-4.87); Red Cell Distribution Width 23 % (10-15); White Blood Count 26.4 10^3/uL (3.5-10.8)
[2022-04-17 10:11] LABS: Albumin 2.4 g/dL (3.2-5.2); Albumin/Globulin Ratio 0.9 (1-3); Calcium 7.7 mg/dL (8.6-10.3); Globulin 2.6 g/dL (2-4); Magnesium 2.5 mg/dL (1.9-2.7); eGFR CKD-EPI 25.7 (>60)
[2022-04-17 10:22] LABS: ABS Basophils 0.1 10^3/ul (0-0.2); ABS Lymphocytes 0.3 10^3/ul (1.0-4.8); ABS Monocytes 0.8 10^3/ul (0-0.8); ABS Neutrophils 25.1 10^3/ul (1.5-7.7); Lymphocyte % 1.3 %; Nucleated Red Blood Cells % 0.1
[2022-04-17 10:25] LABS: Potassium 2.7 mmol/L (3.5-5.0)
[2022-04-17] MEDS ORDERED: Dextrose 50% Syringe 50 ml 25 GM/50 ML SYRINGE IV PUSH ONE ×2 (10:25→10:26)
[2022-04-17] MEDS ORDERED: Dextrose 50% Syringe 50 ml 25 GM/50 ML SYRINGE ONE (10:26)
[2022-04-17] MEDS ORDERED: Piperacillin/Tazobac ADVAN 3.375 GM in NS 0.9% 100 ml BAG 100 ML IV ONE ×2 (10:51→14:04)
[2022-04-17] MEDS ORDERED: D5LR 1000 ml BAG 1,000 ML IV SCH (11:00)
[2022-04-17] MEDS: KCL 20 MEQ/100 ML IVPREMIX 20 MEQ/100 ML BAG IV SCH ×4 (11:00→17:21)
[2022-04-17] MEDS ORDERED: Lactated Ringers 1000 ml BAG 1,000 ML IV SCH (12:00)
[2022-04-17 12:03] LABS: PCO2 Arterial 46 mmHg (35-45)
[2022-04-17 12:04] LABS: PO2 Arterial 57 mmHg (80-100)
[2022-04-17] MEDS ORDERED: Lactated Ringers 500 ml BAG 500 ML IV ONE ×2 (13:11→18:25)
[2022-04-17] MEDS ORDERED: Lactated Ringers 1000 ml BAG 1,000 ML IV ONE (14:04)
[2022-04-17 14:06] LABS: Urine Appearance Clear; Urine Blood 3+ (Large) (Negative); Urine Color Amber; Urine Glucose Trace (100mg/dL) (Negative); Urine Ketones Negative (Negative); Urine Nitrite Negative (Negative); Urine Protein 3+ (>=300 mg/dL) (Negative); Urine Specific Gravity 1.025 (1.005-1.030); Urine Urobilinogen 1.0 (Negative) (Negative)
[2022-04-17] MEDS ORDERED: Albuterol 2.5mg/3 ml (0.083%) NEB.SOLN INH PRN (14:18)
[2022-04-17 14:21] LABS: Urine Bacteria Absent (Absent); Urine Granular Casts Present (Absent); Urine Red Blood Cell Trace(0-2/hpf) (Absent); Urine White Blood Cell Absent (Absent)
[2022-04-17 14:40] LABS: INR 2.19 (0.89-1.11)
[2022-04-17] MEDS ORDERED: Zosyn per Pharmacy NOTE FOLLOW UP SCH (15:00)
[2022-04-17] MEDS: Pantoprazole VIAL 40 MG VIAL IV SCH (15:34)
[2022-04-17 16:25] LABS: Calcium 6.9 mg/dL (8.6-10.3); Potassium 3.2 mmol/L (3.5-5.0); eGFR CKD-EPI 24.9 (>60)
[2022-04-17] MEDS: ZOSYN 3.375 GM Q12H per EXTENDED INFUSION IV SCH (16:52)
[2022-04-17] MEDS: Dextrose 50% Syringe 50 ml 25 GM/50 ML SYRINGE IV PUSH PRN (16:58)
[2022-04-17 17:06] LABS: Urine Creatinine Concentration 83.62 mg/dL; Urine Sodium Concentration < 18 mmol/L
[2022-04-17 17:22] LABS: Urine Appearance Slightly Cloudy; Urine Color Amber
[2022-04-17 17:23] LABS: Urine Blood 3+ (Large) (Negative); Urine Glucose Negative (Negative); Urine Ketones Negative (Negative); Urine Nitrite Negative (Negative); Urine Protein 3+ (>=300 mg/dL) (Negative); Urine Specific Gravity 1.025 (1.005-1.030); Urine Urobilinogen 1.0 (Negative) (Negative)
[2022-04-17 18:30] LABS: Urine Amorphous Crystals Present (Absent); Urine Bacteria Absent (Absent); Urine Granular Casts Present (Absent); Urine Red Blood Cell 1+(3-5/hpf) (Absent); Urine White Blood Cell 1+(6-10/hpf) (Absent)
[2022-04-17] MEDS: Heparin 5000 UNITS/ML 1 mL VIAL SUBCUT SCH (21:17)
[2022-04-18] MEDS ORDERED: NS 0.9% 1000 ml BAG 1,000 ML IV SCH (02:45)
[2022-04-18] MEDS: ZOSYN 3.375 GM Q12H per EXTENDED INFUSION IV SCH ×2 (04:18→15:26)
[2022-04-18 06:19] LABS: Hematocrit 26 % (35-47); Hemoglobin 8.6 g/dL (12.0-16.0); Mean Corpuscular HGB Conc 33 g/dL (31-36); Mean Corpuscular Hemoglobin 29 pg (27-31); Mean Corpuscular Volume 87 fL (80-97); Mean Platelet Volume 7.9 fL (7.4-10.4); Platelet Count 95 10^3/uL (150-450); Red Blood Count 2.98 10^6 /uL (3.70-4.87); Red Cell Distribution Width 23 % (10-15)
[2022-04-18] MEDS: Heparin 5000 UNITS/ML 1 mL VIAL SUBCUT SCH ×3 (06:27→21:03)
[2022-04-18 06:38] LABS: Calcium 6.7 mg/dL (8.6-10.3); Globulin 2.1 g/dL (2-4); Magnesium 2.1 mg/dL (1.9-2.7); Phosphorus 2.4 mg/dL (2.5-5.0); Potassium 3.5 mmol/L (3.5-5.0); Total Bilirubin 5.7 mg/dL (0.2-1.0); Total Protein 4.1 g/dL (6.4-8.9); eGFR CKD-EPI 20.4 (>60)
[2022-04-18 07:12] LABS: Anisocytosis 2+; Polychromasia 1+
[2022-04-18 07:13] LABS: ABS Basophils 0.1 10^3/ul (0-0.2); ABS Eosinophils 0.1 10^3/ul (0-0.6); ABS Lymphocytes 0.3 10^3/ul (1.0-4.8); ABS Monocytes 0.5 10^3/ul (0-0.8); ABS Neutrophils 22.1 10^3/ul (1.5-7.7); Basophilic Stippling 1+; Eosinophil % 0.4 %; Lymphocyte % 1.3 %; Nucleated Red Blood Cells % 0.1
[2022-04-18] MEDS: Pantoprazole VIAL 40 MG VIAL IV SCH (08:03)
[2022-04-18] MEDS: Dextrose 50% Syringe 50 ml 25 GM/50 ML SYRINGE IV PUSH PRN (10:40)
[2022-04-18] MEDS ORDERED: NS 0.9% 500 ml BAG 500 ML IV ONE (17:53)
[2022-04-18] MEDS ORDERED: Norepinephrine 16MCG/ML BAGD5W 4,000 MCG/250 ML BAG IV ONE (19:34)
[2022-04-18] MEDS ORDERED: Norepinephrine 16MCG/ML BAGD5W 4,000 MCG/250 ML BAG IV SCH (20:00)
[2022-04-18] MEDS: Norepinephrine 16MCG/ML BAGD5W 4,000 MCG/250 ML BAG IV SCH (20:35)
[2022-04-19] MEDS: Dextrose 50% Syringe 50 ml 25 GM/50 ML SYRINGE IV PUSH PRN (00:10)
[2022-04-19] MEDS: D5NS 0.9% 1000 ml BAG 1,000 ML IV SCH ×2 (01:11→19:28)
[2022-04-19] MEDS: ZOSYN 3.375 GM Q12H per EXTENDED INFUSION IV SCH ×2 (04:08→15:22)
[2022-04-19 04:23] LABS: Hematocrit 23 % (35-47); Hemoglobin 7.6 g/dL (12.0-16.0); Mean Corpuscular HGB Conc 33 g/dL (31-36); Mean Corpuscular Hemoglobin 29 pg (27-31); Mean Corpuscular Volume 89 fL (80-97); Mean Platelet Volume 8.1 fL (7.4-10.4); Platelet Count 84 10^3/uL (150-450); Red Blood Count 2.63 10^6 /uL (3.70-4.87); Red Cell Distribution Width 24 % (10-15); White Blood Count 28.9 10^3/uL (3.5-10.8)
[2022-04-19 05:13] LABS: ABS Basophils 0.1 10^3/ul (0-0.2); ABS Eosinophils 0.1 10^3/ul (0-0.6); ABS Lymphocytes 0.2 10^3/ul (1.0-4.8); ABS Monocytes 0.5 10^3/ul (0-0.8); Eosinophil % 0.4 %; Lymphocyte % 0.8 %; Nucleated Red Blood Cells % 0.1
[2022-04-19 05:15] LABS: Anisocytosis 1+
[2022-04-19 05:16] LABS: Toxic Granulation 1+
[2022-04-19 05:54] LABS: Magnesium 2.3 mg/dL (1.9-2.7); Phosphorus 4.2 mg/dL (2.5-5.0); Potassium 4.1 mmol/L (3.5-5.0); eGFR CKD-EPI 15.3 (>60)
[2022-04-19 05:55] LABS: Calcium 6.2 mg/dL (8.6-10.3)
[2022-04-19] MEDS: Heparin 5000 UNITS/ML 1 mL VIAL SUBCUT SCH (05:59)
[2022-04-19] MEDS: Norepinephrine 16MCG/ML BAGD5W 4,000 MCG/250 ML BAG IV SCH ×7 (06:53→23:41)
[2022-04-19] MEDS ORDERED: Morphine 2 MG/ML SYRINGE IV PRN (07:50)
[2022-04-19] MEDS: Pantoprazole VIAL 40 MG VIAL IV SCH (09:26)
[2022-04-19 10:22] LABS: Direct Bilirubin 3.9 mg/dL (0.03-0.18); Indirect Bilirubin 2.3 mg/dL (0.3-1.0); Total Bilirubin 6.2 mg/dL (0.2-1.0)
[2022-04-19 10:23] LABS: Fibrinogen 274.9 mg/dL (110.8-404.3); INR 3.12 (0.89-1.11)
[2022-04-19 10:25] LABS: Activated Partial Thrombo Time 207.5 seconds (26.0-38.0)
[2022-04-19] MEDS: Nicotine PATCH 7 MG/24 HR PATCH TRANSDERM SCH (15:21)
[2022-04-19] MEDS: HYDROmorphone 0.5 MG/0.5 ML SYRINGE IV SLOW PU PRN ×3 (15:22→23:42)
[2022-04-19] MEDS ORDERED: Ondansetron 4 mg VIAL 2 MG/ML 2 ml VIAL IV PRN (15:47)
[2022-04-19] MEDS ORDERED: Senna TAB 8.6 mg TAB PO PRN (15:47)
[2022-04-19] MEDS ORDERED: Polyethylene Glycol 3350 17 GM PACKET PO PRN (15:47)
[2022-04-19] MEDS ORDERED: Heparin 5000 UNITS/ML 1 mL VIAL SUBCUT SCH (21:00)
[2022-04-20] MEDS: Norepinephrine 16MCG/ML BAGD5W 4,000 MCG/250 ML BAG IV SCH ×2 (03:35→06:21)
[2022-04-20] MEDS: HYDROmorphone 0.5 MG/0.5 ML SYRINGE IV SLOW PU PRN (05:19)
[2022-04-20] MEDS: ZOSYN 3.375 GM Q12H per EXTENDED INFUSION IV SCH (06:22)
[2022-04-20] MEDS ORDERED: Morphine 2 MG/ML SYRINGE ONE (08:54)
[2022-04-20] MEDS: Nicotine PATCH 7 MG/24 HR PATCH TRANSDERM SCH (09:11)
[2022-04-20 09:35] VITALS: BP 86/40
== END 2022-04-20 09:21 | disposition expired | DRG 871 ==
LOC: ED 08:08 → SUATTDRO 13:55 → EDHOLD 13:55 → ICU 14:14
PROVIDERS: ADMIT Internal Medicine; ATTEND Surgery Surgical Critical Care